=== PATIENT | male | born 1960 | race Caucasian/White ===

== ENCOUNTER → 2017-11-30 06:08 | Outpatient (CLI) | payer BC, SELFPAY ==
[2017-11-30 07:26] LABS: Absolute Lymphocyte Count 1.28 X10^3/ul (0.83-4.51); Basophil# 0.03 X10^3/uL; Basophil% 0.7 % (0-1); Eosinophil# 0.25 X10^3/uL; Eosinophils% 6.1 % (0-5); Hematocrit 40.6 % (40-54); Hemoglobin 14.6 g/dl (13.0-16.5); Lymphocyte # 1.28 X10^3/ul (4.0); Lymphocyte % 31.2 % (19-41); Mean Corpuscular Hgb 31.3 pg (27.0-32.0); Mean Corpuscular Volume 87.1 fL (80-94); Mean Platelet Vol. 8.5 fl (6.2-12.0); Monocyte% 12.2 % (0-10); Neutrophil # 2.02 X10^3/uL (2.7-7.7); Neutrophil % 49.3 % (47-70); Platelet Count 260 K/mm3 (150-450); RBC Distribution Width CV 12.9 % (11.6-14.6); RBC Distribution Width SD 39.9 fl (35.1-43.9); Red Blood Count 4.66 M/mm3 (4.6-6.2); White Blood Count 4.1 K/mm3 (4.4-11.0)
[2017-11-30 07:30] LABS: POSITIVE COUNT NO; POSITIVE DIFFERENTIAL NO; POSITIVE MORPHOLOGY NO
[2017-11-30 07:43] LABS: ALB/GLOB Ratio 1.2 RATIO (0.9-2.4); AST(SGOT) 25 U/L (15-37); Alanine Aminotransfer ALT/SGPT 31 U/L (16-61); Alkaline Phosphatase 49 U/L (45-117); Anion Gap 6 (5-15); BUN 11 mg/dL (7-18); BUN/Creat Ratio 15.3 RATIO (10-20); Calcium,Total 8.2 mg/dL (8.5-10.1); Chloride 108 mmol/L (98-107); Cholesterol 165 mg/dL (200); Creatinine, Serum 0.72 mg/dL (0.70-1.30); EST Glomerular Filtration Rate 120 mL/min (>60); Est Glom Filt Rate - Afr Amer 146 mL/min (>60); Globulin 3.3 g/dL (2.2-4.2); Glucose 106 mg/dL (74-106); High Density Lipoprotein 43 mg/dL; Protein, Total 7.3 g/dL (6.4-8.2); Sodium Level 141 mmol/L (136-145); Triglycerides 97 mg/dL; Very Low Density Lipoprotein 19 mg/dL (5-40)
[2017-11-30 08:58] LABS: Hemoglobin A1c 5.4 % (4.2-6.3)
[2017-12-07 07:07] LABS: Dilute Prothrombin Time (dPT) 38.3 sec (0.0-55.0); PTT-LA 36.3 sec (0.0-51.9); dPT Confirm Ratio 0.95 Ratio (0.00-1.40)
[2017-12-07 13:56] LABS: Interpretation Comment: (.)
== END ==
PROVIDERS: Family Provider Family Medicine; PCP Family Medicine; Visit Provider Family Medicine
DX: H34.9 Unspecified retinal vascular occlusion (principal); E88.81 Metabolic syndrome and other insulin resistance
CPT/HCPCS: 36415; 80053; 80061; 81291; 83036; 85025

== ENCOUNTER → 2017-12-26 06:02 | Outpatient (CLI) | payer BC, SELFPAY ==
--- OUTSIDE RECORDS SUMMARY | 2017-12-26 06:05 | XMS RPT_ITS ---
:1960 Author Organization OHIP Care Team Providers Name Role Phone PEMA MARTINEZ Referring Unavailable PEMA MARTINEZ Referring Unavailable PEMA MARTINEZ Referring Unavailable PEMA MARTINEZ Attending Unavailable PEMA MARTINEZ Admitting Unavailable PEMA MARTINEZ Attending Unavailable PEMA MARTINEZ Attending Unavailable ANUM BELL Attending Unavailable Conner, Car Primary Care Unavailable Gloria Kofernandoian Admitting Unavailable Debbie Benedict Attending Unavailable Genaro Castroian Attending Unavailable Darron Chen Attending Unavailable Prieto, Car Referring Unavailable Prieto, Car Primary Care Unavailable Eugenio Lomeli Attending Unavailable Paulino Rhodes Attending Unavailable Ashelflydia, Ghasem Referring Unavailable Paulino Rhodes Attending Unavailable Ashelfah, Ghasem Referring Unavailable Prieto, Car Attending Unavailable Prieto, Car Primary Care Unavailable Prieto, Car Referring Unavailable PROBLEMS PROBLEMS DATE TYPE CONDITION / CODE ATTENDING STATUS SOURCE 09/06/2017 Unknown K21.9 - [place], Active [place] Gastro-esophageal [facility] reflux disease [facility] without esophagitis Repository / K21.9(ICD-10) 09/26/2017 Unknown R55 - Syncope and Paulino Rhodes Active [place] collapse / Community R55(ICD-10) Hospital Repository 02/22/2017 Active Syncope and ANUM BELL Active [facility] collapse / [facility] [place] R55(ICD-10) Repository 01/16/2017 Active Encounter for other NA Active [facility] preprocedural [facility] [place] examination / Repository Z01.818(ICD-10) 01/02/2017 Active Neoplasm of NA Active [facility] unspecified [facility] [place] behavior of Repository digestive system / D49.0(ICD-10) PROCEDURES PROCEDURES No Procedure Records FoundRESULTS RESULTS CBC W/DIFF, AUTOMATED Collected: 11/30/2017 Status: F Source: [place] 6:15 AM [facility] REPOSITORY TYPE CODE TESTS RESULT OUT OF RANGE REFERENCE UNITS LAB L100.1000 Low 4.4-11.0 K/mm3 WBC 4.1 LAB L100.1200 Normal 4.6-6.2 M/mm3 RBC 4.66 LAB L100.1300 Normal 13.0-16.5 g/dl HGB 14.6 LAB L100.1400 Normal 40-54 % HCT 40.6 LAB L100.1500 Normal 80-94 fL MCV 87.1 LAB L100.1600 Normal 27.0-32.0 pg MCH 31.3 LAB L100.1700 Normal 32-36 g/gl MCHC 36.0 LAB L100.1810 Normal 11.6-14.6 % RDW 12.9 CV LAB L100.1820 Normal 35.1-43.9 fl RDW 39.9 SD LAB L100.1900 Normal 150-450 K/mm3 PLT 260 LAB L100.2000 Normal 6.2-12.0 fl MPV 8.5 LAB L100.2100 Normal 47-70 % NEUT% 49.3 LAB L100.2200 Normal 19-41 % LY% 31.2 LAB L100.2300 High 0-10 % MONO% 12.2 LAB L100.2400 High 0-5 % EO% 6.1 LAB L100.2500 Normal 0-1 % BASO% 0.7 LAB L100.2550 Normal 0.0-0.9 % IM 0.500 GRAN % Result Comment: IG% - Immature Granulocytes (promyelocytes, myelocytes andmetamyelocytes) > 1% indicates that a LEFT SHIFT is Present. LAB L100.2620 Normal 2.0-7.7 X10 3/uL Absolute Neut 2.0 LAB L100.2720 Normal 0.83-4.51 X10 3/ul Absolute Lymph 1.28 Performed By: #### L100.0100 ####[facility] [address] [place], [place], [address] COMPREHENSIVE METABOLIC Collected: 11/30/2017 Status: F Source: [place] [facility] 6:[address] [facility] REPOSITORY Order Comment: Comments: FIBRINOGEN ACTIVITY [id number] PLASMA/RT 24 HRS TYPE CODE TESTS RESULT OUT OF RANGE REFERENCE UNITS LAB L501.0100 Normal 74-106 mg/dL GLU 106 Result Comment: Fasting Glucose result from 100 to 125 mg/dLsuggests IMPAIRED HOMEOSTASIS per A.D.A. criteria.Please note revised GLUCOSE reference range devscscxq67/02/2018. LAB L501.1000 Normal 7-18 mg/dL BUN 11 LAB L501.1100 Normal 0.70-1.30 mg/dL CREAT,SERUM 0.72 Result Comment: The validity of the calculated GFR AND GFRAA in patients over70 years has not been determined. Clinical correlation isessential. LAB L501.1110 Normal >60 mL/min EST GFR 120 Result Comment: Non- GFR Calc LAB L501.1115 Normal >60 mL/min EST GFR - 146 AA Result Comment: GFR Calc LAB L501.1300 Normal 10-20 RATIO BUN/CRE 15.3 LAB L501.1500 Normal 6.4-8.2 g/dL T PROT 7.3 LAB L501.1800 Normal 3.2-5.0 g/dL ALB 4.0 LAB L501.1950 Normal 2.2-4.2 g/dL GLOB 3.3 LAB L501.2000 Normal 0.9-2.4 RATIO A/G 1.2 LAB L501.2200 Low 8.5-10.1 mg/dL CA 8.2 LAB L501.4100 Normal 15-37 U/L AST 25 Result Comment: Slight Hemolysis, Result may be falsely increased. LAB L501.4305 Normal 45-117 U/L ALK P 49 LAB L501.4405 Normal 16-61 U/L ALT 31 Result Comment: Please note revised ALT reference range uedrzhjbo88/28/2018. LAB L501.4600 Normal 0.20-1.00 mg/dL T BILI 0.70 LAB L501.5300 Normal 136-145 mmol/L NA 141 LAB L501.5600 Normal 3.5-5.1 mmol/L K 4.0 Result Comment: Slight Hemolysis, Result may be falsely increased. LAB L501.5900 High 98-107 mmol/L CL 108 LAB L501.6100 Normal 21.0-32.0 mmol/L CO2 27.0 LAB L501.6200 Normal 5-15 6 GAP Performed By: #### L500.4050, L500.4100 ####[facility] [address] [place], [place], [id number] LIPID PROFILE Collected: 11/30/2017 Status: F Source: [place] 6:[address] [facility] REPOSITORY Order Comment: Comments: FIBRINOGEN ACTIVITY [id number] PLASMA/RT 24 HRS TYPE CODE TESTS RESULT OUT OF RANGE REFERENCE UNITS LAB L501.4900 Normal 200 mg/dL CHOL 165 Result Comment: <200 mg/dL Desirable 200-240 mg/dL Borderline >240 mg/dL High Risk LAB L501.5000 Normal mg/dL TRIG 97 Result Comment: The drugs N-Acetylcysteine and Metamizole may falselydepress this assay.Serum Triglycerides Reference Interval Normal <150 mg/dL Borderline high 150 - 199 mg/ dL High 200 - 499 mg/dL Very High > or = 500 mg/dL LAB L501.6400 Normal mg/dL HDL 43 Result Comment: The drugs N-Acetylcysteine and Metamizole may falselydepress this assay. Reference Range HDL <40 mg/dL Low HDL Cholesterol HDL >or= 60 mg/dL High HDL Cholesterol LAB L501.6500 Normal 0-130 mg/dL LDL 103 LAB L501.6600 Normal 5-40 mg/dL VLDL 19 Performed By: #### L500.4050, L500.4100 ####[facility] [address] [place], [address] HEMOGLOBIN A1C Collected: 11/30/2017 Status: F Source: [place] 6:[address] [facility] REPOSITORY TYPE CODE TESTS RESULT OUT OF RANGE REFERENCE UNITS LAB L501.9985 Normal 4.2-6.3 % HGB 5.4 A1C Performed By: #### L501.9985 ####[facility] [address] [place], [address] MISCELLANEOUS LAB Collected: 11/30/2017 Status: F Source: [place] PROCEDURE 3 6:[address] [facility] REPOSITORY Order Comment: Comments: FIBRINOGEN ACTIVITY [id number] PLASMA/RT 24 HRSList Test(s) Ordered by Physician: FACTOR V [id number] PLASMA/FZ TYPE CODE TESTS RESULT OUT OF RANGE REFERENCE UNITS LAB L801.1545 Normal [facility] LAB TEST 3 Result Comment: TEST RESULT UNIT REF INTERVALFactor V Activity 100 % 70 - 150 Molecular testing for the presence of factor V Leiden is recommended when evaluating the patient for thromboticrisk. TESTING PERFORMED AT [facility]. ORIGINAL REPORT ON FILE IN LAB CONTAINS ADDITIONAL TEST SITE INFORMATION. Performed By: #### L801.1545 ####[facility] [address] [place], [address] LUPUS ANTICOAGULANT COMP Collected: 11/30/2017 Status: F Source: [place] 6:[address] [facility] REPOSITORY TYPE CODE TESTS RESULT OUT OF REFERENCE UNITS RANGE LAB L4500.0125 Normal 0.0-55.0 sec DILUTE PT (dPT) 38.3 LAB L4500.0150 Normal 0.00-1.40 Ratio dPT Conf. Ratio 0.95 LAB L4500.0200 Normal 0.0-23.0 sec THROMBIN TIME 22.0 LAB L4500.0600 Normal 0.0-51.9 sec PTT-LA 36.3 LAB L4500.1000 Normal 0.0-47.0 sec DRVVT 36.0 LAB L4500.1300 Normal . Interpretation Comment: Result Comment: No lupus anticoagulant was detected. Performed By: #### L4500.0100, L4600.0155 ####[facility] (refer to report for specific site)refer to report for address and phone number MTHFR DNA VARIANT Collected: 11/30/2017 Status: F Source: [place] 6:[address] [facility] REPOSITORY TYPE CODE TESTS RESULT OUT OF RANGE REFERENCE UNITS LAB L4600.0205 Normal . 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 The MTHFR A7902S variant was not identified.This combination of results is not associated with anincreased risk of hyperhomocysteinemia, venous thrombosis,coronary artery disease, or recurrent loss.However, hyperhomocysteinemia may also occur due tomutations in enzymes other than MTHFR that are involved inhomocysteine metabolism, or arise due to acquiredfactors. In evaluation of vascular and obstetric risk,consider measuring fasting homocysteine. Other risk factorsmay be detected through systematic clinical laboratoryanalysis. LAB L4600.0250 Normal COMMENT Result Comment: Methylenetetrahydrofolate reductase (MTHFR) is a gordon enzyme in thefolate pathway and is responsible for the metabolism of homocysteine.There are two common variants in the MTHFR gene, c.655c>T(p.Arg458Yexs), referred to as C677T, and c.1286A>C (p.Dul419Geh),referred to as L9451G. Individuals homozygous for C677T (two copiesof the variant), have decreased activity of the MTHFR enzyme and apredisposition to hyperhomocysteinemia, particularly when deficient infolate. Hyperhomocysteinemia is a risk factor for venous thrombosisand coronary artery disease and is associated with an increased riskof open neural tube defects. The C677T variant does notindependently increase risk of these conditions in the absence ofhyperhomocysteinemia. The A9860F variant is not associated withelevated homocysteine levels unless a C677T variant is also present;however, the clinical significance of heterozygosity for both N217Qyoa A1762K is controversial. Population data suggest that these twovariants are not present on the same chromosome, but rare exceptionshave been reported of triple variant MTHFR genotypes (ie. homozygousfor one variant and heterozygous for the other). Homozygosity fsfD504D has an estimated frequency of 10% to 15% in Caucasians and 25%in Hispanics.Additional information:Dietary folic acid, B6 and B12 supplementation has been suggested tolower homocysteine levels in some people. Folic acid supplementationhas been shown to reduce the occurrence of neural tube defects.Genetic counselors are available for health care providers to discussresults at [phone].Methodology:DNA analysis of the MTHFR gene was performed by PCRamplification followed by restriction analysis. Thediagnostic sensitivity is >99% for both. Molecular-basedtesting is highly accurate, but as in any laboratory test,rare diagnostic errors may occur. All test results must becombined with clinical information for the most accurateinterpretation.This test was developed and its performance characteristicsdetermined by [employer]. It has not been cleared or approved bythe Food and Drug Administration.References:Basimo LD, Rubio Q. Am J Epidemiol 2000; 151(9):862-877.Maodnna MM, Nya THEODORE. Arch Pathol Lab Med 2007; 131(6):872-884.Frosst P et al. Yesica Adriana 1995; 10(1):111-113.Tito SE et al. Adriana Med 2013; 15(2):153-156.Kenny C et al. Obstet Gynecol 2011; 118(3):730- 740.Kenji B et al. Eur J Epidemiol 2013; 28(8):621-647.Hilary Langford, PhD, Mike Lieberman, PhD, Carolee Monterroso, PhD, Aman Kam MHakanSHakan, PhD, Ankit Schofield, PhD, Charity Bundy, PhD, Anders Beard, PhD, FACMGPerformed at: BN - [facility] [address] [id number] Director: Erik Mancera MD, Phone: [phone] at: TG - [facility] [address] [place], [place] [id number] Director: Damian Khalil MD, Phone: [phone] Performed By: #### L4500.0100, L4600.0155 ####[facility] (refer to report for specific site)refer to report for address and phone number MISCELLANEOUS LAB Collected: 11/30/2017 Status: F Source: [place] PROCEDURE 2 6:[address] [facility] REPOSITORY Order Comment: Comments: FIBRINOGEN ACTIVITY [id number] PLASMA/RT 24 HRSList Test(s) Ordered by Physician: ANTITHROMBIM III [id number] PLASMA/FZ TYPE CODE TESTS RESULT OUT OF RANGE REFERENCE UNITS LAB L801.1543 Normal [facility] LAB TEST 2 Result Comment: TEST RESULT UNITS REF INTERVALAntithrombin Activity 91 % 75 - 135Direct Xa inhibitor anticoagulants such as rivaroxaban,apixaban and edoxaban will lead to spuriously elevatedantithrombin activity levels possibly masking a deficiency. TESTING PERFORMED AT [facility]. ORIGINAL REPORT ON FILE IN LAB CONTAINS ADDITIONAL TEST SITE INFORMATION. Performed By: #### L801.1543 ####[facility] [address] [place], [place], [address] MISCELLANEOUS LAB Collected: 11/30/2017 Status: F Source: [place] PROCEDURE 6:[address] [facility] REPOSITORY Order Comment: Comments: FIBRINOGEN ACTIVITY [id number] PLASMA/RT 24 HRSTest(s) Ordered: ANTITHROMBIM III [id number] PLASMA/FZ TYPE CODE TESTS RESULT OUT OF RANGE REFERENCE UNITS LAB L801.1541 Normal [facility] LAB TEST Result Comment: TEST RESULT LIMITSAntithrombin Activity 91 % 75 - 135Direct Xa inhibitor anticoagulants such as rivaroxaban,apixaban and edoxaban will lead to spuriously elevatedantithrombin activity levels possibly masking a deficiency. TESTING PERFORMED AT [facility]. ORIGINAL REPORT ON FILE IN LAB CONTAINS ADDITIONAL TEST SITE INFORMATION. Performed By: #### L801.1541 ####[facility] [address] [place], [place], [address] SURGERY VISIT REPORT Observed: 09/06/2017 Status: F Source: [place] 4:[address] [facility] REPOSITORY [facility] [address] [place] [address] [place] [address] [phone] VISITDate of Service: 09/06/17MR#: [id number] Acct: [id number]: ANDRE PADRON Rep #: [id number]: 1960 Provider: Eugenio Claros/Sex: 57/M Location: [facility].WSAStatus: SignedIntakeVital Signs09/06/17 Height 6 ft 1 in09/06/17 Weight: 230 lb09/06/17 Body Mass Index (BMI) 30.3IntakeVisit Reasons: egd/cscope consult, hx of hh, on ppi for ulcerInterpreter Required: NoIs patient in pain?: NoAllergiesacetaminophen [From Vicodin] Adverse Reaction (Verified 09/06 15:10)Nauseahydrocodone [From Vicodin] Adverse Reaction (Verified 09/06/17 15:10)NauseaMedicationsProtonix 1 tab PO DAILY 08/20/16 [History Confirmed 09/06/17]Ropinirole HCl [Requip] 0.25 mg PO QHS 08/25/17 [History Confirmed 09/06/17]escitalopram 10 mg tablet 10 mg PO QDAY 09/06/17 [History Confirmed 09/06/17]sucralfate 1 gram tablet 1 g PO ONCE 09/06/17 [History Confirmed 09/06/17]PFSHMedical History Benign parotid tumor (Acute)GERD (gastroesophageal reflux disease) (Acute)History of left knee surgery (Acute)Restless leg syndrome (Acute)Stomach ulcer (Acute)Surgical History H/O esophagogastroduodenoscopy (Acute)History of appendectomy (Acute)History of colonoscopy (Acute)Family History Father DiabetesHeart diseaseHypertensionCAD (coronary artery disease)Social HistorySmoking Status: Light Smoker (<10/day)alcohol intake: current alcohol intake frequency: holidays/special occasions onlysubstance use type: does not useHPIHPIHPI: ANDRE PADRON, is a 57 M who presents to the office today for epigastric pain. He reportsthat he saw his PCP and his PCP ordered Carafate for him but he did not start them untilyesterday. Once he did start taking them yesterday he feels much better. He currently has nopain. He reports he has been under a lot of stress for the last year since he lost his son.He says that he did have a an upper and lower endoscopy a few years ago which was normal. Hereports the pain as being in his epigastric region and radiating into his chest.ROSGeneralGeneral: Yes weight change and fatigueCardioCardiovascular: No murmur, pacemaker or heart diseasePsychPsychiatric: Yes depression and anxietyRespRespiratory: No shortness of breath, No sleep apnea, No cough, No COPD, No asthma, Noemphysema, No wheezingGastroGastrointestinal: Yes abdominal pain, Yes nausea or vomiting, Yes diarrhea, Yes constipation,No blood in stool, Yes acid reflux, Yes hemorrhoids, Yes ulcers, No gallbladder problem, [place],tarry stoolsExamConstGeneral: cooperative, healthy appearingRespEffort AND Inspection: normal respiratory effortAuscultation: clear to auscultation bilaterallyCardioRate: regular rateRhythm: regular rhythmHeart Sounds: no murmursGIInspection: normal to inspection, non-distendedPalpation: soft, nontenderAssessment AND PlanProblems1. GERD (gastroesophageal reflux disease) K21.9Plan1. The patient appears to be having GERD but reports relief of his symptoms when takingCarafate. I offered to do an EGD at this time or wait and see if he continues to respond tothe Carafate. The patient would like to see me in 1 month and see if the Carafate works. Itold him that if the Carafate is working to call me in 1 week and I will refill it for a totalof 1 month treatment. I advised him to continue his PPI. If his GERD worsens or does notresolve after a month's time I will perform an EGD.Eugenio Lomeli, MDPager: [facility] [address] , [address] [address]Gjktxc: Fax: [phone]/07/16 1600 <Electronically signed by Eugenio Lomeli MD> Date Eugenio Lomeli [facility]ign Signature: Date (if applicable)CC: Car Prieto MD 12 LEAD ELECTROCARDIOGRAM Observed: 08/30/2017 Status: F Source: [place] 2:56 PM [facility] REPOSITORY [facility] [address] [place], [place] [address] Lead EKG110/26/16 0105MR#: [id number] Acct: [id number]: ANDRE PADRON Rep #: [id number]: 1959 57 From: Benjamin Castro MDAttending Dr: Debbie Benedict Status: DIS INOOrdering Dr: Abraham Damian MD Date: 08/25/17Location: PCU Sex: M CAdmitted: 08/25/17Test Reason :Blood Pressure : / mmHGVent. Rate : 052 BPM Atrial Rate : 052 BPMP- R Int : 156 ms QRS Dur : 102 msQT Int : 482 ms P-R-T Axes : 015 067 063 degreesQTc Int : 448 msSinus bradycardiaOtherwise normal ECGConfirmed by BENJAMIN CASTRO MD ([id number]), supervising editor trailer BETO PADILLA ([id number]) on 08/30/2017 2:56:24 PMReferred By: EKCIA Confirmed By:BENJAMIN CASTRO MD08/30/17 1456Date Benjamin Casrto MDCC: Car Prieto MD Signed CAROTID DUPLEX Observed: 08/26/2017 Status: F Source: [place] ULTRASOUND 1:[address] [facility] REPOSITORY [facility] [address] [place], [place] [address]Lddjiwq Duplex Nqjdtiugwy51/15/17 0856MR#: [id number] Acct: [id number]: ANDRE PADRON Rep #: [id number]: 1960 57 From: Deven Lyle MDAttending Dr: Debbie Benedict Status: DIS INOOrdering Dr: Jaqueline Castro MD Date: 08/25/17Location: PCU Sex: M CAdmitted: 08/25/17Reason For Study: syncopeRt. Velocities/BP Lt. Velocities/BPProx CCA 156.0/11.8 cm /sec. Prox CCA 147.0/28.3 cm/sec.Mid CCA 117.0/26.7 cm/sec. Mid CCA 145.0/30.6 cm/sec.Dist CCA 107.0/28.3 cm/sec. Dist CCA 134.0/29.1 cm/sec.Prox ICA 98.2/20.4 cm/sec. Prox ICA 124.0/25.1 cm/sec.Mid ICA 94.4/24.6 cm/sec. Mid ICA 141.0/26.7 cm/sec.Dist ICA 80.3/28.1 cm/sec. Dist ICA 91.5/25.2 cm/sec.Rt. ICA/CCA = 98.2/117.0=0.84. Lt. ICA/ CCA = 141.0/145.0=0.97.Prox ECA 135.0/18.9 cm/sec. Prox ECA 125.0/14.9 cm/ sec.Rt. Vert. 42.6/11.4 cm/sec. Lt. Vert. 58.1/19.3 cm/sec.Right ExtracranialThere is intimal thickening but no significant atherosclerotic plaque noted in the right commoncarotid artery. There is no significant atherosclerotic plaque noted in the right internalcarotidartery. There is no significant atherosclerotic plaque noted in the right external carotidartery.Antegrade flow is noted in the right vertebral artery.Left ExtracranialThere is intimal thickening but no significant atherosclerotic plaque noted in the left commoncarotid artery. There is intimal thickening but no significant atherosclerotic plaque noted intheleft internal carotid artery. There is no significant atherosclerotic plaque noted in the leftexternal carotid artery. Antegrade flow is noted in the left vertebral artery.ProcedureCarotid Duplex 65763. The exam was diagnostic. Exam performed portable in patient room.Interpretation SummaryMild (<50%) stenosis right extracranial internal carotid. Moderate ( 50-69%) stenosis leftextracranial internal carotid. Flow within the vertebral arteries is antegrade bilaterally. Order ing Physician: Jaqueline CastroReferring Physician: Car PrietoPerformed By: Leslie Coronado RDCS, RVT 08/26/17 1337Date _ Deven Lyle MDCC: Car Prieto MD; Jaqueline Castro MD Date Dictated: 08/25/17 0856Date Transcribed: 08/26/17 1337Transcriptionist:Signed DISCHARGE SUMMARY Observed: 08/25/2017 Status: F Source: [place] 3:[address] [facility] REPOSITORY [facility]ITALMedical Records [address] [place] [place], [place] [address]Nuihqxdps Sptzocm72/15/17 1438MR#: [id number] Acct: [id number]: ANDRE PADRON Rep #: [id number]: 1960 57 From: Darron Chen PAPCP: Car Prieto MD Status: DIS IESHA YLocation: U [id number] by Debbie Benedict on 08/25/17 at 1502Code VisitPlease ignore the visit code at the bottom of the discharge summary.OBSV E AND M: 01620 Observ/hosp same date L208/25/17 1502 <Electronically signed by Debbie Benedict MD>Date Debbie Benedict [facility]: RAMAN Chen; Car Prieto MD; Debbie Benedict *Signed<Darron Chen - Last Filed: 08/25/17 14:38>Discharge Date and DiagnosisDate of Admission: 08/25/17Date of Discharge: 08/25/17- Primary Discharge DiagnosisSyncope-vasovagalHx GERD, Depression, RLSHospital Course and TreatmentImaging Results:Echocardiogram-EF 65%, no regional wall abnormalities noted, LV systolic function normalORDER #: [id number] RAD/ Chest 1 View (Portable)IMPRESSION:Normal x-ray examination of the chest.Operations: NoneProcedures: 2-D Echocardiogram, - - Carotid ultrasoundSummary of Care Provided:General: Resting comfortably NADPsych: A/Ox3 normal affectHEENT: PEARRLA AT NCNeck: Supple NT-no bruits were appreciated today.CV: RRR no m/t/r/g/hResp: CTAAbd: NABSX4 Soft NT no guarding or rigidityExt: DP2+= no edemaSkin: W/D normal turgorLymph/Heme: No active bleeding or adenopathyNeuro: CN2-12 intactHospital course:The patient is a 57 year old M who presented to the ER after experiencing a syncopal episode athome. This was the 2nd occurrence, another had occurred about 2 weeks prior to this event. 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 This time it occurred after he stood up out of bed, he became verynauseous and walked into another room of his house, he felt like he needs them fracture andattempted to walk outside at which point he collapsed and lost consciousness. He was broughtto the emergency room for evaluation. Chest x-ray was negative, EKG showed sinus bradycardiaat 52. He had no further symptoms after admission. Troponin was negative 3. TSH was normal.No events on telemetry. Orthostatic vitals were checked which were negative. He underwent anechocardiogram which was normal as noted above. He also had a carotid ultrasound the resultsof which are pending. It is felt that his presentation was consistent with vasovagal syncope,no other changes were made at this time. He was discharged home in stable condition. He willneed to follow-up with his PCP in 1-2 weeks.This patient was seen by Darron Chen PA-C under the supervision of Doctor Benedict. []Discharge Diet: No RestrictionsDischarge Activity: Return to Normal ActivityHome Medications:Medications to take at DischargeProtonix 1 tab PO DAILY 08/20/16Depression Med 1 tab PO DAILY 08/25/17Ropinirole HCl [Requip] 0.25 mg PO QHS 08/25/17Primary Care Physician:Car Prieto MD [Primary Care Provider] - Please follow up with your Primary Care Physician in: 1-2 weeksDisposition: HomeMinutes spent on discharge:: 35Patient Condition:: StableMeaningful Use InfoMeaningful Use Diagnoses (Choose all that apply): None applicableCode VisitOBSV E AND M: 36488 Observation care discharge<Debbie Benedict - Last Filed: 08/25/17 15:00>Hospital Course and TreatmentProcedures: -Summary of Care Provided:Hospitalist note:Discharge summary above as well as physical examination and I agree with above discharge andtreatment plan. Patient was admitted for syncope, seemed to be due to vasovagal syncope.Workup including routine blood work, chest x-ray, EKG and 2D echocardiogram were unremarkable.He had bilateral carotid Doppler ultrasound which was pending at the time of discharge. Therewas no symptoms consistent with stroke or TIA. Patient's vital signs remained stablethroughout admission. Telemetry revealed no evidence of cardiac arrhythmias or acute changes.Routine blood work was remarkable for mild hypokalemia which was replaced and corrected.Troponin was negative 3. TSH was normal. LFT was normal. Patient discharged home in astable medical condition, discharged on the same medication that he has been taking without anychanges, recommended follow-up with PCP in 1-2 weeks..Minutes spent on discharge:: 24Code VisitOBSV E AND M: 72746 Observation care myiiccdqn72/15/17 1446 <Electronically signed by Darron CAMARGO>Date Darron CAMARGO 1501<Electronically signed by Debbei Benedict MD>Cosigner Signature (if applicable): Date Debbie Benedict MDCC: RAMAN Chen; Car Prieto MD; Debbie Benedict Signed DISCHARGE INSTRUCTION Observed: 08/25/2017 Status: F Source: [place] 11:[address] [facility] REPOSITORY [facility] [address] [place], [place] [address]Ljtuujctlykp for Home/Discharge Whwstsvmfcsj40/15/17 1156MR #: [id number] Acct: [id number]: ANDRE PADRON Rep #: [id number]: 1960 57 From: Darron Chen PAPCP: Car Prieto MD Status: ADM INOYou will use the following diet at home:: No restrictionsYour food should be the consistency of: RegularYour liquids should be the consistency of: Regular/ThinDischarge Activity: Return to Normal ActivityAllergies/Adverse Reactions:Allergiesacetaminophen [From Vicodin] Adverse Reaction (Verified 08/25/17 00:47)Nauseahydrocodone [From Vicodin] Adverse Reaction (Verified 08/25/17 00:47)NauseaMedications to take at DischargeProtonix 1 tab PO DAILY 08/20/16Depression Med 1 tab PO DAILY 08/25/17Ropinirole HCl [Requip] 0.25 mg PO QHS 08/25/17Primary Care Physician:Car Prieto MD [Primary Care Provider] - Please follow up with your Primary Care Physician in: 1-2 weeksProposed Discharge Date : 08/25/1712/15/17 1157 <Electronically signed by Darron CAMARGO>Date Darron Chen PACC: Car Prieto MD ECHOCARDIOGRAM COMPLETE Observed: 08/25/2017 Status: F Source: [place] 11:[address] [facility] REPOSITORY [facility]OSPITALCardiovascular Hdvzswkd[address] [address]Fmcc Jcmbfefe68/15/17 0816MR#: [id number] Acct: [id number]: ANDRE PADRON Hiren Rep #: [id number]: 1960 57 From: Paulino Rhodes MDAttending Dr: Debbie Benedict Status: ADM INOOrdering Dr: Jaqueline Castro MD Date: 08/25/17Location : PCU Sex: M CAdmitted: 08/25/17Reason For Study: PalpitationsProcedureThis was a 2D Doppler, Color Flow transthoracic echocardiogram. The exam was of adequatetechnicalquality. Exam performed portable in patient room.Left VentricleNormal LV size. Left ventricular systolic function is normal. The estimated ejection fractionis 65%. No regional wall motion abnormalities noted.Right VentricleNormal RV size. Normal systolic function.AtriaThe left atrium is mildly enlarged. Normal right atrium. No doppler evidence for ASD.Mitral ValveThere is no mitral annular calcification. Normal mitral valve. Trivial mitral valveinsufficiency.Tricuspid ValveNormal tricuspid valve. Trivial tricuspid valve insufficiency.Aortic ValveTrisinus/trileaflet aortic valve. Normal aortic valve.Pulmonic ValveThe pulmonic valve is not well visualized. Trivial pulmonic valve insufficiency.Great VesselsNormal sized aortic root.Pericardium/PleuralNo pericardial effusion.MMode/2D Measurements AND CalculationsLVIDd: 3.8 cm IVSd: 1.2 cm Ao root diam: 3.2 cmLVIDs: 2.3 cm LVPWd: 1.1 cm LA dimension: 4.5 cmRVDd: 4.0 cm FS: 39.8 % __LAV(MOD-bp): 61.1 ml EDV(MOD-sp4): 88.3 ml SV(MOD-sp4): 50.8 mlLAV(MOD-bp) Indexed: 26.8 ml/m2 ESV(MOD-sp4): 37.4 mlLAV(MOD-sp2): 65.6 ml EF(MOD-sp4): 57.6 %LAV(MOD-sp4): 48.9 ml ___LA A4 area: 19.2 cm2 RA A4 area: 12.3 bj1W[place] Measurements AND CalculationsMV E max schuyler: 80.8 cm/sec Lat Peak E' Schuyler: 10.4 cm/sec Med Peak E' Schuyler: 7.6 cm/secMV A max schuyler: 65.8 cm/sec E/E' lat: 7.8 E/E' med: 10.6MV E/ A: 1.2 ____Ao V2 max: 136.3 cm/sec LV V1 max: 124.6 cm/sec PA V2 max: 111.7 cm/ secAo max P.4 mmHg LV V1 max P.2 mmHgAo V2 mean: 97.1 cm/secAo mean P.0 mmHgAo V2 VTI: 29.0 cm TR max schuyler: 217.0 cm/secTR max P.8 mmHgInterpretation SummaryLeft ventricular systolic function is normal.The estimated ejection fraction is 65 %.The left atrium is mildly enlarged.Trivial mitral valve insufficiency.Trivial tricuspid valve insufficiency.Trivial pulmonic valve insufficiency. Ordering Physician: Jaqueline CastroReferring Physician: Car Prieto, MDPerformed By: Domtiila Oglesby RDCS, RVT 08/25/17 1108Date Paulino Rhodes MDCC: Car Prieto MD; Jaqueline Castro MD Date Dictated: 08/25/17 0816Date Transcribed: 08/25/17 1108Transcriptionist:Signed TROPONIN-I Collected: 08/25/2017 Status: F Source: [place] 10:[address] [facility] REPOSITORY Order Comment: 'TROP' Serial specimen #1, #2, #3, or #4: 3 TYPE CODE TESTS RESULT OUT OF RANGE REFERENCE UNITS LAB L501.4010 Normal <0.06 ng/mL < TROPONIN-I 0.02 Result Comment: TROPONIN-I EXPECTED VALUES <0.05 NEGATIVE 0.06 - 0.59 AT RISK OF [place] > OR = 0.60 SUGGEST TX Performed By: #### L501.4010 ####[facility] [address] [place], [address] THYROID STIM HORMONE Collected: 08/25/2017 Status: F Source: [place] (TSH) 10:[address] [facility] REPOSITORY Order Comment: Comments: FROM BLOOD IN LAB. TYPE CODE TESTS RESULT OUT OF RANGE REFERENCE UNITS LAB L501.9520 Normal 0.358-3.74 uIU/mL TSH 0.73 Performed By: #### L501.9520 ####[facility] [address] [place], [place], [address] BASIC METABOLIC Collected: 08/25/2017 Status: F Source: [place] PROFILE (BMP) 6:[address] [facility] REPOSITORY TYPE CODE TESTS RESULT OUT OF RANGE REFERENCE UNITS LAB L501.0100 High 70-110 mg/dL GLU 127 Result Comment: Fasting Glucose result greater than or equal to 126 mg/ dLsuggests DIABETES MELLITUS per A.D.A. criteria. LAB L501.1000 Normal 7-18 mg/dL BUN 15 LAB L501.1100 Normal 0.70-1.30 mg/dL CREAT,SERUM 0.70 Result Comment: The validity of the calculated GFR AND GFRAA in patients over70 years has not been determined. Clinical correlation isessential. LAB L501.1110 Normal >60 mL/min EST GFR 125 Result Comment: Non- GFR Calc LAB L501.1115 Normal >60 mL/min EST GFR - 151 AA Result Comment: GFR Calc LAB L501.1255 Normal ml/min Estimated 133.17 CRCL LAB L501.1300 High 10-20 RATIO BUN/CRE 21.6 LAB L501.2200 Low 8.5-10 mg/dL CA 8.1 .1 LAB L501.5300 Normal 136-14 mmol/L NA 142 5 LAB L501.5600 Normal 3.5-5. mmol/L K 4.1 1 LAB L501.5900 High 98-107 mmol/L CL 109 LAB L501.6100 Normal 21.0-3 mmol/L CO2 26.0 2.0 LAB L501.6200 Normal 5-15 GAP 7 Performed By: #### L500.2500 ####[facility] [address] [place], [address] TROPONIN-I Collected: 08/25/2017 Status: F Source: [place] 6:[address] [facility] REPOSITORY Order Comment: 'TROP' Serial specimen #1, #2, #3, or #4: 2 TYPE CODE TESTS RESULT OUT OF RANGE REFERENCE UNITS LAB L501.4010 Normal <0.06 ng/mL < TROPONIN-I 0.02 Result Comment: TROPONIN-I EXPECTED VALUES <0.05 NEGATIVE 0.06 - 0.59 AT RISK OF TX > OR = 0.60 SUGGEST TX Performed By: #### L501.4010 ####[facility] [address] [place], [address] HISTORY AND PHYSICAL Observed: 08/25/2017 Status: F Source: [place] EXAM 3:[address] [facility] REPOSITORY [facility] [address] [facility] [place], [place] [address]Vikfzyp and Pgljneuo38/15/17 0220MR#: [id number] Acct: [id number]: ANDRE PADRON Rep #: [id number]: 1960 57 From: Jaqueline Castro MDPCP: Car Prieto MD Status: ADM IESHA YLocation: [facility] RSO232-5Upskhnk of Present IllnessDate of Admission: 08/25/17Chief Complaint: I passed outThe patient is a 57 year old M who presented to the emergency room via EMS after a syncopalepisode. He reports he ate at a [email or web address]. and after about 2 hours camesignificantly nauseated and dizzy, to stand up and then passed out. His reports that hebecame diaphoretic she called 911. He also reports a similar incident about 2 weeks ago.Patient denies cardiac history, he had a stress test few years ago which was normal. Thepatient also reports acid reflux symptoms he takes Protonix daily but the symptoms has worsenedlately, we are placing him in the PCU for observation.Past Medical HistoryAllergiesacetaminophen [From Vicodin] Adverse Reaction (Verified 00:47)Nauseahydrocodone [From Vicodin] Adverse Reaction (Verified 08/25/17 00:47)NauseaHome Medications:Ambulatory OrdersMedication Instructions RecordedProtonix 1 tab PO DAILY 08/20/16Depression Med 1 tab PO DAILY 08/25/17Ropinirole HCl [Requip] 0.25 mg PO QHS 08/25/17Smoking Status: Light Smoker (<10/day)Review of SystemsComment: All Systems were reviewed with pertinent positives mentioned in the HPI above.VTE Information - Inpt OnlyVTE Present on Admission: NoVTE Mechan Device Prophylaxis: SCD'sVTE Pharm Prophylaxis ordered?: Yes- Physical ExamGeneral: Alert, Oriented p9UDDGY: AtraumaticNeck: Supple, No JVDLungs: Clear to auscultation, No rhonchi, No wheezeCardiovascular: Normal S1 , Normal B7Prrvjjf: Bowel Sounds Present, Soft, Non TenderVital SignsTemp Pulse Resp BP Pulse Ox97.6 F L 60 20 H 141/84 H 00:44 08/25/17 01:18 08/25/17 00:44 08/25/17 01:18 08/25/17 00:44Oxygen Delivery Method Room AirWeight: 104.326 kgBody Mass Index (BMI) 30.3Laboratory Tests Past 24 HrsWBC 6.0RBC 4.28 LHgb 13.4Hct 37.3 LMCV 87.1MCH 31.3Assessment/ Plan1. status post syncope; most likely vasovagal obtain echocardiogram and carotid Dopplerultrasound and go from there.2. GERD; we will change his Protonix to 40 mg twice daily3. Depression/ restless leg syndrome; continue home medications as they are.Code VisitOBSV E AND M: 54811 Initial observation care L208/25/17 0350 <Electronically signed by Jaqueline Castro MD>Date Jaqueline Castro MDCosigner Signature: Date (if applicable)CC: Car Prieto MD; Jaqueline Castro MD Signed EMERGENCY DEPARTMENT Observed: 08/25/2017 Status: F Source: [place] SUMMARY 3:[address] [facility] REPOSITORY [facility] [address] [place] [address]Owirofdxk Department Hrvddpa65/15/17 0209MR#: [id number] Acct: [id number]: ANDRE PADRON Rep #: [id number]: 1960 57 From: Abraham Damian MDPCP: Car Prieto MD Status: ADM IESHA- ER Visit SummaryDate of Service: 08/25/17Chief Complaint: SyncopeHistory of Present Illness: The patient is a 57 M with no significant medical history presentsto the emergency department after a syncopal event. Patient states that he ate at a [employer]. He states that he had no complaints. He got home about 2 hours later. Hestarted to feel very nauseated and lightheaded. He states that he stood up quickly and thenhad a syncopal episode. He states this happened about 2 weeks ago also. He has no history ofcoronary vascular disease. There is no family history of sudden cardiac . He denieshaving a recent stress test or heart catheterization. He denies having any chest pain. Thepatient has no history of pulmonary embolus or risk factor.Physical Examination: Vital signs reviewedGeneral: Well-nourished, well-developedHead: Normocephalic, atraumaticEyes: Pupils equal and reactive, extraocular muscles intactNeck, supple, no lymphadenopathyHeart: Regular rate and rhythmRespiratory: No distress, clear bilaterallyAbdomen: Soft, nontender, nondistended, no peritoneal signsBack: NontenderExtremities: Nontender, no edema, no cordsSkin: Normal color no rashNeuro: Alert and oriented, no focal or lateralizing deficitsTest Results: AG demonstrates sinus bradycardia. Screening labs are unremarkable.Emergency Department Course and Treatment: She had syncopal event. This has been recurrent.My suspicion is that this is likely vasovagal in nature, but given the patient's age andpersistence of lightheadedness I did proceed with a metabolic workup. EKG is unremarkableexcept for sinus bradycardia in the 50s. There was no prolonged QT. There is no WPW. Chestx-ray was unremarkable. Labs are unremarkable. The patient continues to have some mildlightheadedness. Given his age, I am going to admit the patient observation for syncope workupwith potential echocardiogram. Family is comfortable with this plan of care.Treatment Plan: []Disposition: Admit to telemetryImpression:. SyncopeThis note was generated with Power OLEDsation software. It may contain incorrect words,spelling, and punctuation that were not noted in review of the chart prior to signingED Disposition- Plan for ED Patient:Chief Complaint: SyncopeReferrals:Car Prieto MD [Primary Care Provider] -What to do if you have ProblemsFor any increased pain, shortness of breath, bleeding, nausea or vomiting, chest pain, or anyunexpected problems, contact your Primary Care Provider. Call [facility] ([phone])or report to the closest Emergency Room.Call 911 if necessary.08/25/17 0300 <Electronically signed by Abraham Damian MD> Date Abraham Damian [facility] Signature (If Indicated): Date ___CC: Car Prieto MD CHEST 1 VIEW Observed: 08/25/2017 Status: F Source: [place] (PORTABLE) 1:[address] [facility] REPOSITORY [facility] [address] [place] [address]Efvew 1 View (Portable)MR#: [id number] Acct: [id number]: ANDRE PADRON Rep #: [id number]: 1959 M 57 From: Erik Kulkarni MDPCP: Car Prieto MD Status: REG ERStudy: Chest 1 View (Portable) Date of Exam: 08/25/17Exam# [id number] Ordering Dr: Abraham Damian MDSTUDY: X-RAY CHESTREASON FOR EXAM: Male, 57 years old. Nausea and syncopeTECHNIQUE: Single frontal view of the chest.COMPARISON: None. FINDINGS:The lungs are clear and expanded. There is no demonstrated pleuralabnormality.Normal size heart. Normal mediastinum and charity. Normal visualizedpulmonary arteries. Normal visualized aortic arch and descending thoracicaorta.Normal visualized thoracic spine. Normal visualized ribs, clavicles, andshoulders.There is no demonstrated abnormality of the visualized soft tissuestructures of the upper abdomen. ORDER #: [id number] RAD/Chest 1 View (Portable)IMPRESSION:Normal x-ray examination of the chest.Electronically Signed:Erik Kulkarni MD at 2:25 ESTTel , Service support , RH: Car Prieto MD; Abraham Damian MD Yield Engineer:Signed CBC W/DIFF, AUTOMATED Collected: 08/25/2017 Status: F Source: [place] 1:[address] [facility] REPOSITORY TYPE CODE TESTS RESULT OUT OF RANGE REFERENCE UNITS LAB L100.1000 Normal 4.4-11.0 K/mm3 WBC 6.0 LAB L100.1200 Low 4.6-6.2 M/mm3 RBC 4.28 LAB L100.1300 Normal 13.0-16.5 g/dl HGB 13.4 LAB L100.1400 Low 40-54 % HCT 37.3 LAB L100.1500 Normal 80-94 fL MCV 87.1 LAB L100.1600 Normal 27.0-32.0 pg MCH 31.3 LAB L100.1700 Normal 32-36 g/gl MCHC 35.9 LAB L100.1810 Normal 11.6-14.6 % RDW 12.6 CV LAB L100.1820 Normal 35.1-43.9 fl RDW 39.1 SD LAB L100.1900 Normal 150-450 K/mm3 PLT 273 LAB L100.2000 Normal 6.2-12.0 fl MPV 8.3 LAB L100.2100 Low 47-70 % NEUT% 46.0 LAB L100.2200 Normal 19-41 % LY% 39.1 LAB L100.2300 High 0-10 % MONO% 10.4 LAB L100.2400 Normal 0-5 % EO% 3.8 LAB L100.2500 Normal 0-1 % BASO% 0.5 LAB L100.2550 Normal 0.0-0.9 % IM 0.200 GRAN % Result Comment: IG% - Immature Granulocytes (promyelocytes, myelocytes andmetamyelocytes) > 1% indicates that a LEFT SHIFT is Present. LAB L100.2620 Normal 2.0-7.7 X10 3/uL Absolute Neut 2.8 LAB L100.2720 Normal 0.83-4.51 X10 3/ul Absolute Lymph 2.36 Performed By: #### L100.0100 ####[facility] [address] [place], [place], [id number] COMPREHENSIVE METABOLIC Collected: 08/25/2017 Status: F Source: [facility] 1:[address] [facility] REPOSITORY Order Comment: 'TROP' Serial specimen #1, #2, #3, or #4: 1 TYPE CODE TESTS RESULT OUT OF RANGE REFERENCE UNITS LAB L501.0100 Normal 70-110 mg/dL GLU 107 LAB L501.1000 Normal 7-18 mg/dL BUN 18 LAB L501.1100 Normal 0.70-1.30 mg/dL 0.93 CREAT,SERUM Result Comment: The validity of the calculated GFR AND GFRAA in patients over70 years has not been determined. Clinical correlation isessential. LAB L501.1110 Normal >60 mL/min EST GFR 89 Result Comment: Non- GFR Calc LAB L501.1115 Normal >60 mL/min EST GFR - 108 AA Result Comment: GFR Calc LAB L501.1255 Normal ml/min Estimated 100.23 CRCL LAB L501.1300 Normal 10-20 RATIO BUN/CRE 19.4 LAB L501.1500 Normal 6.4-8. g/dL T PROT 7.1 2 LAB L501.1800 Normal 3.4-5. g/dL ALB 3.8 0 Result Comment: Please note revised Albumin AND Globulin reference rangeeffective 2017. LAB L501.1950 Normal 2.2-4.2 g/dL GLOB 3.3 LAB L501.2000 Normal 0.9-2.4 RATIO A/G 1.2 LAB L501.2200 Low 8.5-10.1 mg/dL CA 8.1 LAB L501.4100 Normal 15-37 U/L AST 22 LAB L501.4305 Normal 45-117 U/L ALK P 54 LAB L501.4405 Normal 12-78 U/L ALT 26 LAB L501.4600 Normal 0.20-1.00 mg/dL T BILI 0.70 LAB L501.5300 Normal 136-145 mmol/L NA 142 LAB L501.5600 Low 3.5-5.1 mmol/L K 3.3 LAB L501.5900 Normal 98-107 mmol/L CL 106 LAB L501.6100 Normal 21.0-32.0 mmol/L CO2 29.0 LAB L501.6200 Normal 5-15 GAP 7 Performed By: #### L500.4050, L501.4010 ####[facility] [address] [place], [place], [address] TROPONIN-I Collected: 08/25/2017 Status: F Source: [place] 1:[address] [facility] REPOSITORY Order Comment: 'TROP' Serial specimen #1, #2, #3, or #4: 1 TYPE CODE TESTS RESULT OUT OF RANGE REFERENCE UNITS LAB L501.4010 Normal <0.06 ng/mL < TROPONIN-I 0.02 Result Comment: TROPONIN-I EXPECTED VALUES <0.05 NEGATIVE 0.06 - 0.59 AT RISK OF TX > OR = 0.60 SUGGEST TX Performed By: #### L500.4050, L501.4010 ####[facility] [address] [place], [place], [address] CNPN Observed: 03/17/2017 Status: COMPLETED Source: [place] 12:00 AM [facility] REPOSITORY Telephone (OTOLMN) ---------ANDRE PADRON ([id number]) 1960 MDate Time Provider Department03/17/17 PEMA MARTINEZ OTOLMN During your visit today, we recorded the following information about you:Connie Rey Sec 03/17/2017 2:55 PM SignedPatient had surgery by Dr. Martinez for EXCISION PAROTID GLAND LATERAL LOBE W/DISSECTION ANDamp; NERVE PRES (Right) on 02/03.Patient calling regarding severe dry mouth. States he cannot go longer than 5minutes without liquids or lozenge.Pharmacy is accuratePema Martinez MD, 03/17/2017 4:27 PM SignedPrescribed salagen for dry mouth.David Elias Sec 03/20/2017 2:56 PM SignedPatient notified.Allergies As of Date: 2016 Noted Allergy ReactionVICODIN (HYDROCODONE-ACETAMINOPHE*03/24/2016 16 - Unknown Comments: Made patient feel like he was having with drawls from pain medication.Date Reviewed: 03/13/2017Reviewed by: Pema Martinez MD - Fully AssessedReason for Visit: Dry Mouth [1294]Primary Visit Diagnosis:Xerostomia [R68.2]Order(s):pilocarpine (SALAGEN, PILOCARPINE,) 5 mg tabletTake 1 tablet by mouth three times daily.Disp: 90 tabletRfl: 2Prescriptions as of 03/17/2017 Sig: PILOCARPINE 5 MG TABLET Take 1 tablet by mouth three * TEMAZEPAM 15 MG CAPSULE Take 15 mg by mouth at bedtim* PANTOPRAZOLE 40 MG TABLET,DEL* Take 40 mg by mouth once elvis*Problem List As Of Date 03/17/2017 Noted Resolved Anxiety [F41.9] INVALID FOR* Parotid mass [K11.9] INVALID FOR*03/13/2017 Sialocele [K11.6] INVALID FOR*Prescriptions ordered this encounter Disp Refills Start End PILOCARPINE 5 MG TABLET 90 t* 2 03/17/2017 Route: ORAL Sig: Take 1 tablet by mouth three times daily. 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 His face seems to be moving well. He has numbnessof his ear. He has noticed some increased swelling and some tendernessover the area that has worsened as she is taking more oral intake aftersurgery. He denies or fevers chills.Current Outpatient Prescriptions: temazepam (RESTORIL) 15 mg cap Take 15 mg by mouth at bedtime as needed.Disp: Rfl: 0pantoprazole DR (PROTONIX) 40 mg tablet Take 40 mg by mouth once daily.Disp: Rfl:No current facility-administered medications for this visit.EXAM:Constitutional - General Appearance: well developed, well nourished, without obviousdeformities Communication: speaks with a normal voice without hoarsenessHead AND Face - Well healing right parotidectomy incision, Numbness over right ear lob Facial nerve on the right intact in upper branches, subtle weakness inmidface and marginal mandibular branch There is fullness in the parotid bed on the right and tenderness topalpation Mild erythema of skin, without induration or warmth.PROCEDURE NOTE: Recommended Ultrasound guided needle aspiration rightparotid sialocele with botox injection. Risks, benefits, personnel andalternatives were explained. The patient wished to proceed. S/he wasre-identified and a time out obtained.PROCEDURE: Recommended Ultrasound guided aspiration of right parotidsialocele with botox injectionPREOPERATIVE DIAGNOSIS: right parotid sialocelePOSTOPERATIVE DIAGNOSIS : sameINDICATIONS: right parotid sialocele s/p parotidectomyANESTHESIA: 1% lidocaine with 1:100,000 epinephrinePROCEDURE: With the patient sitting upright, informed consent wasobtained. The patient was re-identified and a time out made. The areaover the parotid was anesthetized with 1 cc of 1% lidocaine with 1 100, 000epinephrine. We then used ultrasound to localize the lesion fluidcollection within the right parotid bed. There was a hypoechoic areameasuring 2 cm by half a centimeter consistent with a right parotidsialocele.Then under ultrasound guidance a 23-gauge needle was used withconfirmation on ultrasound imaging of the needle within the hypoechoicfluid to aspirate fluid collection. This yielded a serous drainage I wasable to drain 2 cc of fluid. This was consistent with a sialocele. Thereis no evidence of any purulence. Following this drainage I then used [id number] needle and botulinum A 50 units diluted into 2 cc's of injectablesterile saline. I targeted the remnant parotid tissue within the rightparotid bed using the ultrasound and then under ultrasound guidance Idistributed that 2 cc of botulinum a mixture into the parotid tissue andmultiple regions and injected a total of 40 cc. At the completion of theinjection within seconds the patient reported lightheadedness andtherefore we laid him back in the exam chair in got him a cold washclothfor his head. After a few moments of complaining of lightheadedness thepatient then had a syncopal episode which appeared to be vaso-vagal innature. He did lose consciousness for 5 seconds and had some very brieftonic-clonic movements at the onset of loss of consciousness and he didbecome incontinent of urine. We used sniffing salt to help him regainconsciousness and he did not have any post ictal period as he was a+pP3yudfegnrqlf after regaining conciousness. Given these events we calledthe rapid response team for evaluation. He vital signs were normal andhis finger stick glucose was also normal. He was taken by the rapidresponse team in stable condition to the emergency room for furtherevaluation.FINDINGS: right parotid sialocele - 2 cc's of fluid aspirated. 40 unitsof botulinum toxin A injected into parotid. 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 Will have patient f/u in 4-6 weeks to check that sialocele has notre-accumulated2. Patient taken to emergency room to rule out other causes of syncope andloss of continence.3. I did review the pathology with the patient and his daughter prior tothe needle aspiration procedurePema Martinez MD ED NOTE Observed: 02/22/2017 Status: COMPLETED Source: [place] 6:11 PM [facility] REPOSITORY HNO ID: [id number]: Ирина (Rn) OLAYINKA Boervice: Emergency MedicineAuthor Type: Registered NurseType: ED NotesFiled: 02/22/2017 6:12 PMNote Text: Discharge instructions reviewed with patient. Aware to f/u with pcp.Discharged home with daughter. TROPONIN T Collected: 02/22/2017 Status: F Source: [place] 3:47 PM [facility] REPOSITORY TYPE CODE TESTS RESULT OUT OF REFERENCE UNITS RANGE LAB TROPT 0.000-0.029 ng/mL Troponin T <0.010 Performed By: #### LEANDRO ####[facility] [address] [place], [place] [phone] PROGRESS Observed: 02/22/2017 Status: COMPLETED Source: [place] 2:46 PM [facility] REPOSITORY HNO ID: [id number]: Nancy Holliday (Pharmacist) Service: PharmacyAuthor Type: PharmacistType: Progress NotesFiled: 02/22/2017 4:00 PMNote Text:MEDICATION HISTORY AND MEDICATION RECONCILIATIONPatient Name:Stephanie PadronN: [id number]: 1960ource of history:Pharmacy records: [facility] in [place], [place] [phone] Nonadherence Identified: No barriers notedThe above information represents the best possible medication history: YesReconciliation completed? Yes All PIPELINES SUPERINTENDENT medications addressed by LIPAdditional comments: Additional Meds: Mirtazapine 15mg 1/2-1 po qd (Patient has not started yet)Allergies:ALLERGIESAllergen Reactions- Vicodin [Hydrocodon* Unknown Made patient feel like he was having with drawls from pain medication.Preferred Pharmacy: [facility] in [place], [place] [phone] PIPELINES SUPERINTENDENT Medications:Prior to Admission medications as of 02/22/17 1559Medication Sig Last Dose Takingpantoprazole DR (PROTONIX) 40 mg tablet Take 40 mg by mouth once daily.Yestemazepam (RESTORIL) 15 mg cap Take 15 mg by mouth at bedtime as needed.Matias Irving Brick Kiln Burner)February 22, 2017 2:46 Clif[place] LeonJune 2016 4:00 PM ED NOTE Observed: 02/22/2017 Status: COMPLETED Source: [place] 2:36 PM [facility] REPOSITORY HNO ID: [id number]: Ирина MosesRn) OLAYINKA Boervice: Emergency MedicineAuthor Type: Registered NurseType: ED NotesFiled: 02/22/2017 2:47 PMNote Text: Patient transferred to [facility]. Gait steady ambulating from cart to bed.Pt was having a procedure when he felt he was going to pass out.Daughter states she witnessed his eyes roll back, describes decerebrateposturing of arms, and tremors. Patient states he came to with peoplecalling his name. Incontinent of urine during episode. Vss. Denies pain.Cardiac monitoring initiated showing sinus rhythm. Oriented to cdu, poc,call system. Call light within reach. Meal tray provided.Nursing Plan: Vs Q4 hours R/o TX with cardiac enzymes and ekgs Cardiac monitoring Monitor pain and medicate as needed Maintain patient safety ED NOTE Observed: 02/22/2017 Status: COMPLETED Source: [place] 2:29 PM [facility] REPOSITORY HNO ID: [id number]: Maddy MosesGift Shop Manager) KEITH OwensService: Emergency MedicineAuthor Type: Respiratory TherapistType: ED NotesFiled: 2016 2:30 PMNote Text: Patient in observation for syncope. No current respiratory hx or homemedications. SpO2 99% on ra. RR 18. HR 70. BS clear bilaterally. Ptstable, resting comfortably in NAD. No respiratory requirements at thistime. ED NOTE Observed: 02/22/2017 Status: COMPLETED Source: [place] 12:44 PM [facility] REPOSITORY HNO ID: [id number]: Toña (Rn) Andyr, RNService: Emergency MedicineAuthor Type: Registered NurseType: ED NotesFiled: 02/22/2017 12:45 PMNote Text: NAD noted, respirations even and unlabored, updated regarding plan ofcare , verbalized understanding CBC AND DIFFERENTIAL Collected: 02/22/2017 Status: F Source: [place] 11:58 AM [facility] REPOSITORY TYPE CODE TESTS RESULT OUT OF REFERENCE UNITS RANGE LAB WBC 3.70-11.00 k/uL WBC 8.50 LAB RBC 4.20-6.00 m/uL RBC 4.47 LAB HGB 13.0-17.0 g/dL Hemoglobin 14.0 LAB HCT Low 39.0-51.0 % Hematocrit 38.7 LAB MCV 80.0-100.0 fL MCV 86.6 LAB MCH 26.0-34.0 pG MCH 31.3 LAB MCHC High 30.5-36.0 g/dL MCHC 36.2 LAB RDWCV 11.5-15.0 % RDW-CV 12.1 LAB PLTCT 150-400 k/uL Platelet 276 Count LAB MPV Low 9.0-12.7 fL MPV 8.3 LAB ANEUT % Neut% 81.9 LAB AANEUT 1.45-7.50 k/uL Abs Neut 6.96 LAB ALYMP % Lymph% 9.2 LAB AALYMP Low 1.00-4.00 k/uL Abs Lymph 0.78 LAB AMONO % [place]% 6.1 LAB AAMONO 0.00-0.86 k/uL Abs [place] 0.52 LAB AEOS % Eosin% 2.1 LAB AAEOS 0.00-0.45 k/uL Abs Eosin 0.18 LAB ABASO % Baso% 0.7 LAB AABASO 0.00-0.10 k/uL Abs Baso 0.06 LAB AUNRBC 0 /100 WBC NRBCs 0.0 LAB NRBC 0 /100 WBC NRBCs 0 LAB ABNRBC k/uL Absolute nRBC 0.00 LAB DTYP DTYPE Auto Diff Performed By: #### CBCDIF, CKCKMB, CMP, LEANDRO ####[facility] [place], [place] [phone] CK, TOTAL AND CKMB Collected: 02/22/2017 Status: F Source: [place] 11:58 AM [facility] REPOSITORY TYPE CODE TESTS RESULT OUT OF RANGE REFERENCE UNITS LAB CK 51-298 U/L CK 180 Result Comment: Please note the updated, gender-specific reference range for this test (effective 08/25/2016). LAB MB <7.7 ng/mL MB 3.5 Result Comment: Please note the updated, gender-specific reference range for this test (effective 08/26/2016). LAB CKMBRI 0.0-4.0 % CK 1.9 MB % Performed By: #### CBCDIF, CKCKMB, CMP, LEANDRO ####[facility] [place], [place] [phone] COMP METABOLIC PANEL Collected: 02/22/2017 Status: F Source: [place] 11:58 [facility] REPOSITORY TYPE CODE TESTS RESULT OUT OF REFERENCE UNITS RANGE LAB TP 6.3-8.0 g/dL Protein, Total 6.9 LAB ALB 3.9-4.9 g/dL Albumin 3.9 LAB CA 8.5-10.2 mg/dL Calcium, Total 9.0 LAB TBIL 0.2-1.3 mg/dL Bilirubin, 0.7 Total LAB ALKP 36-108 U/L Alkaline 47 Phosphatase LAB AST 14-40 U/L AST 20 LAB GLU High 74-99 mg/dL Glucose 107 Result Comment: The [place] Diabetes Association (ADA) provides guidance for cutoff values for fasting glucose and random glucose. The ADA defines fasting as no caloric intake for at least 8 hours. Fasting plasma glucose results between 100 to 125 mg/dL indicate increased risk for diabetes (prediabetes).Fasting plasma glucose results greater than or equal to 126 mg/dL meet the criteria for diagnosis of diabetes. In the absence of unequivocal hyperglycemia, results should be confirmed by repeat testing. In a patient with classic symptoms of hyperglycemia or hyperglycemic crisis, random plasma glucose results greater than or equal to 200 mg/dL meet the criteria for diagnosis of diabetes.Reference: Standards of Medical Care in Diabetes 2016 , [place] [employer] Association. Diabetes Care. 2016.39(Suppl 1). LAB BUN 9-24 mg/dL BUN 14 LAB CRET 0.73-1.22 mg/dL Creatinine 0.88 LAB NA 136-144 mmol/L Sodium 139 LAB K 3.7-5.1 mmol/L Potassium 4.1 LAB CL 97-105 mmol/L Chloride 102 LAB CO2 22-30 mmol/L CO2 25 LAB AGAP 9-18 mmol/L Anion Gap 12 LAB ALT 10-54 U/L ALT 21 LAB GFRAA eGFR- Amer. >60 LAB GFRNAA . eGFR-All Other Races >60 Result Comment: eGFR (Estimated GFR) Units of measure: mL/min/1.73 meters squaredeGFR is derived from the reexpressed MDRD Study equation using the following parameters: serum creatinine, age, gender and race. The creatinine assay has been calibrated to be traceable to IDMS.An eGFR <60 mL/min/1.73m2 for >3 months is consistent with chronic kidney disease. Refer to KDOQI guidelines for clinical interpretation.In patients with unstable renal function, e.g. those with acute kidney injury, the eGFR may not accurately reflect actual GFR. Performed By: #### CBCDIF, CKCKMB, CMP, LEANDRO ####[facility] [address] [place], [place] [phone] TROPONIN T Collected: 02/22/2017 Status: F Source: [place] 11:58 AM [facility] REPOSITORY TYPE CODE TESTS RESULT OUT OF REFERENCE UNITS RANGE LAB TROPT 0.000-0.029 ng/mL Troponin T <0.010 Performed By: #### CBCDIF, CKCKMB, CMP, LEANDRO ####[facility] [address] [place], [place] [phone] ED NOTE Observed: 02/22/2017 Status: COMPLETED Source: [place] 11:39 AM [facility] REPOSITORY HNO ID: [id number]: Danuta Thompson CTS (Ct)ervice: Emergency MedicineAuthor Type: Clinical TechnicianType: ED NotesFiled: 02/22/2017 11:39 AMNote Text: Pt vital signs updated ED NOTE Observed: 02/22/2017 Status: COMPLETED Source: [place] 11:29 AM [facility] REPOSITORY HNO ID: [id number]: Toña (Rn) OLAYINKA Wildeervice: Emergency MedicineAuthor Type: Registered NurseType: ED NotesFiled: 02/22/2017 11:29 AMNote Text: Changed out of soiled pants and into patient gown ED PROV NOTE Observed: 02/22/2017 Status: COMPLETED Source: [place] 11:10 AM [facility] REPOSITORY HNO ID: [id number]: Elio Ruffin) CASSY Thomaservice: Emergency MedicineAuthor Type: PhysicianType: ED Provider NotesFiled: 2016 4:32 PMNote Text:ED Provider NotePatient Name: Andre PadronMRN: [id number] DATE: 02/22/17HistoryPatient presents with:SyncopeHPI Comments: 57 y/o M with PMHx of GERD and s/p parotidectomy 02/03/17presents to ED with daughter from outpatient ENT appointment for syncopalepisode. Pt states he was having a procedure to drain a pocket of fluidand inject botox into his parotid gland today. Pt states he began feelingclammy and pale while sitting in the chair during the injection. Thedaughter reports the patient passed out and his upper extremities curledand was shaking which lasted about 10 seconds. Pt also had anincontinence episode at that time. Pt has no history of seizures. Ptdenies CP, SOB, nausea, lightheadedness, and dizziness before and afterthe syncopal episode. The patient is asymptomatic at this time. Deniesfevers, chills, fatigue, new weakness, lightheadedness, dizziness, hearingloss, vision changes, tinnitus, memory loss, confusion, CP, SOB, cough,dysphagia, abd pain, N/V/D, melena, dysuria/hematuria, numbness/tingling.History provided by: PatientLanguage manager water wastewater used: NoPAST MEDICAL HISTORYDiagnosis Date- GERD (gastroesophageal reflux disease)PAST SURGICAL HISTORYNo date: LZEVYGGXQHDA04/13/2014: COLONOSCOP W/ OR W/O BRS SPEC Comment: Ffghnagtuwu63/13/2014: EGD W/O OR W/BRUSH/WASH Comment: EGDNo date: UT ANESTH,ELBOW,NOS Comment: RightNo date: UT ANESTH,KNEE JOINT; NOS Comment : LeftFAMILY HISTORY Diabetes Father Heart disease [OTHER] FatherSocial History Marital status: Spouse name: Years of education: Number of children: 2Occupational 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 [employer] History Main Topics Smoking status: Never Smoker Alcohol use: Yes Comment: occassional Drug use: No Sexual activity: Yes Partners with: FemaleALLERGIESAllergen Reactions- Vicodin [Hydrocodon* Unknown Made patient feel like he was having with drawls from pain medication.Review of SystemsConstitutional: Negative for chills, fatigue and fever.HENT: Negative for congestion.Eyes: Negative for visual disturbance.Respiratory: Negative for shortness of breath.Cardiovascular: Negative for chest pain.Gastrointestinal: Negative for abdominal pain, nausea and vomiting.Genitourinary: Negative for dysuria.Musculoskeletal: Negative for gait problem, neck pain and neck stiffness.Neurological: Positive for syncope. Negative for dizziness, weakness,light-headedness and numbness.Psychiatric/Behavioral: Negative for suicidal ideas.Physical ExamBP 143/80 Pulse 72 Temp (Src) 97.5 (Oral) Resp 20 Ht 6' 1 (1.85m) Wt 235 lb (106.6kg) SpO2 96% BMI 31.01 kg/(m2).Physical ExamConstitutional: He is oriented to person, place, and time. He appearswell-developed and well-nourished. No distress.Well appearing and pleasant male in no acute distress.HENT:Head: Normocephalic and atraumatic.Mouth/Throat: Oropharynx is clear and moist.Eyes: No scleral icterus.PERRLA. EOM intact bilaterally.Neck: Neck supple.Cardiovascular: Normal rate, regular rhythm and normal heart sounds. Examreveals no gallop and no friction rub.No murmur heard.Pulses : Radial pulses are 2+ on the right side, and 2+ on the left side. Dorsalis pedis pulses are 2+ on the right side, and 2+ on the leftside.Pulmonary/Chest: Effort normal and breath sounds normal. No respiratorydistress. He has no wheezes. He has no rales. He exhibits no tenderness.Abdominal: Soft. Bowel sounds are normal. He exhibits no distension. Thereis no tenderness.Musculoskeletal: Normal range of motion.Neurological: He is alert and oriented to person, place, and time.Alert AND oriented x 3. Speech is clear and fluent. CN II-XII are grosslyintact with symmetrical facial movements and shoulder shrug. Strength isfull bilaterally in UE and LE. Sensation to light touch is intact in UEand LE bilaterally. ROCKY and fine finger movements are intact. There is nodysmetria on goafdt-de-nlda. Tandem gait is steady with normal steps.Skin: Skin is warm and dry. He is not diaphoretic.Psychiatric: He has a normal mood and affect.Nursing note and vitals reviewed.Diagnostic TestingED Labs Ordered and ReviewedGLUCOSE, BLOOD (POC) - Abnormal; Notable for the following: Result Value Ref Range Glucose, Point of Care 104 (*) 65 - 100 mg/dL All other components within normal limits Narrative: Meter ID: [id number] + DIFF - Abnormal; Notable for the following: Hematocrit 38.7 (* ) 39.0 - 51.0 % MCHC 36.2 (*) 30.5 - 36.0 g/dL MPV 8.3 (*) 9.0 - 12.7 fL Abs Lymph 0.78 (*) 1.00 - 4.00 k/uL All other components within normal limitsCOMP METABOLIC PANEL - Abnormal; Notable for the following: Glucose 107 (*) 74 - 99 mg/dL All other components within normal limitsTROPONIN TCK TOTAL AND CK-MBTROPONIN TProceduresMedical Decision Making / ED CourseED CourseVital signs were reviewed.Triage records were reviewed.Medical records were reviewed.Nursing notes were reviewed and incorporated.Vital signs on arrival: wnl.57 y/o M who is s/p parotidectomy 02/03/17 presents from outpatient ENTappointment for syncopal episode during botox injection. Pt is afebrile,nontoxic appearing, and hemodynamically stable. On examination, no focalneurologic deficits. Gait stable and steady. Pt asymptomatic at this time.LABS: CBC shows no anemia and no leukocytosis. CMP shows no electrolyteabnormalities. Cardiac markers wnl. Glucose 104. EKG was reviewed anddemonstrated a normal sinus rhythm at 66 beats per minute, normal axis, normal intervals, reviewed and interpreted by Dr. Thomas. No additionalacute changes are noted.Pt sent to CDU for repeat cardiac markers and EKG.Pt understood suspected diagnosis and instructions, with noquestions/concerns at this time. No barriers of communication wereapparent.Patient seen by and plan discussed with ED attending , Dr. Thomas.Encounter Diagnosis ICD-10-CM1. Syncope, unspecified syncope type B92SmprNrb Patient was DISCHARGE.CDU Plan of CareCurrent clinical impression and indication for CDU placement: syncope, ACSrule out.Labs: Repeat Cardiac MarkersImaging: NoneProcedures: NoneConsults: NoneClinical Reassessment: Testing and results edduedci35 hour goals: Sxs resolved or improvedCondition at time of disposition : improved and stableSIGNATURE: Robby Knott (Julio C) RAMAN Gtz02/22 1454Attending NoteI have personally performed a face to face assessment of the patient andhave reviewed the PA/SAP HANA DEVELOPER note. My gordon findings include:Mr Padron Presented to the emergency department after syncopal episode thatoccurred in the ENT office today. The patient was undergoing procedure toaddress a sialocele, and shortly after an injection of Botox into theparotid gland he had a syncopal episode. Medical personnel reported briefloss of consciousness with some associated posturing but no overttonic-clonic activity. The patient regained consciousness within seconds, and had a normal mental status when consciousness was regained. Onevaluation, physical exam is reassuring. Vital signs are reassuring. EKGis unchanged from previous. The patient was observed briefly in the CDUfor serial cardiac markers and echocardiogram which were negative. He wasultimately discharged in stable condition and she' ll follow up with hisprimary care physician.Signature: ELIO THOMAS MDDate: 02/23/2017Time: 4:30 Armando Thomas MD02/23/17 7982 ED NOTE Observed: 02/22/2017 Status: COMPLETED Source: [place] 11:10 AM [facility] REPOSITORY HNO ID: [id number]: Toña (Rn) OLAYINKA Wildeervice: Emergency MedicineAuthor Type: Registered NurseType: ED NotesFiled: 02/22/2017 11:24 AMNote Text:Assumed care of patient, awake and alert, denies complaints at this time, reports feeling cold, clammy at outpatient appt, then +loc, dtr reportswitnessing posturing to BUE, +loss of bladder control. Patient currentlywith no new neuro deficits, has right facial paralysis/parasthesias andslurred speech reported as preexisting from surgical procedure, Jay PAREDES 4, ED NOTE Observed: 02/22/2017 Status: COMPLETED Source: [place] 10:23 AM [facility] REPOSITORY HNO ID: [id number]: Elio Ruffin) Suzan Thomasice: (none)Author Type: PhysicianType: ED NotesFiled: 02/22/2017 10:23 AMNote Text: Bed: TCI-01Expected date:Expected time:Means of arrival:Comments:Andre Padron [id number] is coming from ENT Clinic for syncope. Was there forpost op check post parotidectomy. Found sialocele and injected botox intoparotid gland...then syncope for 10+ seconds with some posturing but noobvious seizure. Awoke with smelling salts, had normal VS once awake. CNOV Observed: 02/22/2017 Status: COMPLETED Source: [place] 8:50 AM [facility] REPOSITORY Office Visit (OTOLMN) ---------ANDRE PADRON ([id number]) 1960 MDate Time Provider Department02/22/17 8:50 AM PEMA MARTINEZ OTOLMN During your visit today, we recorded the following information about you:Kim Correa, RN, RN 2016 8:45 AM SignedTobacco Use: NeverWas smoking cessation packet given? 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 His face seems to be moving well. He has numbness of hisear. He has noticed some increased swelling and some tenderness over the areathat has worsened as she is taking more oral intake after surgery. He deniesor fevers chills.Current Outpatient Prescriptions:temazepam (RESTORIL) 15 mg cap Take 15 mg by mouth at bedtime as needed. Disp:Rfl: 0pantoprazole DR (PROTONIX) 40 mg tablet Take 40 mg by mouth once daily. Disp:Rfl:No current facility-administered medications for this visit.EXAM:Constitutional - General Appearance: well developed, well nourished, without obviousdeformities Communication: speaks with a normal voice without hoarsenessHead ANDamp; Face - Well healing right parotidectomy incision, Numbness over right ear lob Facial nerve on the right intact in upper branches, subtle weakness inmidface and marginal mandibular branch There is fullness in the parotid bed on the right and tenderness to palpation Mild erythema of skin, without induration or warmth.PROCEDURE NOTE: Recommended Ultrasound guided needle aspiration right parotidsialocele with botox injection. Risks, benefits, personnel and alternativeswere explained. The patient wished to proceed. S/he was re-identified and atime out obtained.PROCEDURE: Recommended Ultrasound guided aspiration of right parotid sialocelewith botox injectionPREOPERATIVE DIAGNOSIS : right parotid sialocelePOSTOPERATIVE DIAGNOSIS: sameINDICATIONS: right parotid sialocele s/p parotidectomyANESTHESIA: 1% lidocaine with 1:100,000 epinephrinePROCEDURE: With the patient sitting upright, informed consent was obtained. Thepatient was re-identified and a time out made. The area over the parotid wasanesthetized with 1 cc of 1% lidocaine with 1 100, 000 epinephrine. We thenused ultrasound to localize the lesion fluid collection within the rightparotid bed. There was a hypoechoic area measuring 2 cm by half a centimeterconsistent with a right parotid sialocele.Then under ultrasound guidance a 23-gauge needle was used with confirmation onultrasound imaging of the needle within the hypoechoic fluid to aspirate fluidcollection. This yielded a serous drainage I was able to drain 2 cc of fluid.This was consistent with a sialocele. There is no evidence of any purulence.Following this drainage I then used a 25- gauge needle and botulinum A 50 unitsdiluted into 2 cc's of injectable sterile saline. I targeted the remnantparotid tissue within the right parotid bed using the ultrasound and then underultrasound guidance I distributed that 2 cc of botulinum a mixture into theparotid tissue and multiple regions and injected a total of 40 cc. At thecompletion of the injection within seconds the patient reported lightheadednessand therefore we laid him back in the exam chair in got him a cold washclothfor his head. After a few moments of complaining of lightheadedness thepatient then had a syncopal episode which appeared to be vaso-vagal in nature.He did lose consciousness for 5 seconds and had some very brief tonic-clonicmovements at the onset of loss of consciousness and he did become incontinentof urine. We used sniffing salt to help him regain consciousness and he didnot have any post ictal period as he was a+oX4 immediately after regainingconciousness. Given these events we called the rapid response team forevaluation. He vital signs were normal and his finger stick glucose was alsonormal. He was taken by the rapid response team in stable condition to theemergency room for further evaluation.FINDINGS: right parotid sialocele - 2 cc's of fluid aspirated. 40 units ofbotulinum toxin A injected into parotid. Patient tolerated the procedure wellhowever appeared to have vaso-vagal syncope folloiwing the procedure with lossof continence of bladder and was taken to the emergency room by the rapidresponse team for further evaluation . 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 Will have patient f/u in 4-6 weeks to check that sialocele has notre-accumulated2. Patient taken to emergency room to rule out other causes of syncope and lossof continence.3. I did review the pathology with the patient and his daughter prior to theneedle aspiration procedureTHERESA Gileseferring Provider: SELF [200] Allergies As of Date: 02/22/2017 Noted Allergy ReactionVICODIN (HYDROCODONE-ACETAMINOPHE*03/24 16 - Unknown Comments: Made patient feel like he was having with drawls from pain medication.Date Reviewed: 02/22/2017Reviewed by: Johan MosesRn) RENATO Julian - Fully AssessedReason for Visit: Post-Op Visit [1236] Cmt: S/P EXCISION PAROTID GLANDVisit Diagnosis: Sialocele [K11.6]Prescriptions as of 02/22/2017 Sig:X OMEPRAZOLE 40 MG CAPSULE, ANGEL* Take 40 mg by mouth once elvis*X OXYCODONE-ACETAMINOPHEN 5 MG-* Take 1 tablet by mouth every *X LORAZEPAM 0.5 MG TABLET Take 1 tablet by mouth as dir*Medication notes this encounter OXYCODONE-ACETAMINOPHEN 5 MG-325 MG TABLET >> Kim Correa RN, RN 02/22/2017 8:44 AM >> KIM CORREA RN MonFeb 22, 2017 8:44 AM No longer taking this medicationProblem List As Of Date 02/22/2017 Noted Resolved Anxiety [F41.9] INVALID FOR* Parotid mass [K11.9] INVALID FOR*Visit Notes:>> Kim Dewey (Renato) RENATO Correa MonFeb 22, 2017 8:44 AM Status : SignedTobacco Use: NeverWas smoking cessation packet given? N/A - Patient is a non-smoker or quit>1 year ago.Was a referral initiated?N/A Patient is a ckk-ckelqvIygbhv-ht and Disposition History RecordedEncounter Number: [id number] Status:Closed by PEMA MARTINEZ MD on 03/13/17 PROGRESS Observed: 02/04/2017 Status: COMPLETED Source: [place] 9:11 AM [facility] REPOSITORY HNO ID: [id number]: Pancho Rodriguezervice: OtolaryngologyAuthor Type: ResidentType: Progress NotesFiled: 02/04/2017 9:12 AMNote Text:OTOLARYNGOLOGY - HEAD AND NECK SURGERYINPATIENT PROGRESS NOTEPATIENT NAME : Andre PadronN: [id number] Procedure : Procedure(s):EXCISION PAROTID TUMOR OR GLANDDate of Surgery: 02/03/2017Reason for Surgery: Pre-Op Diagnosis Codes: * 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]Surgeon: Pema Martinez MDINTERVAL HPI:JOSE overnightTolerating dietPain well controlledEXAMBP 110/62 Pulse 68 Temp 37.2 ?C (99 ?F) (Temporal Artery) Resp 16 SpO2 95%INTAKE/OUTPUT:Intake/Output Summary (Last 24 hours) at 02/04/17 0911Last data filed at 02/04/17 0851 Gross per 24 hourIntake 5291 mlOutput 1385 mlNet 3906 mlEXAM:General: No acute distressNeuro: TUVt1Eelumtwcid: breathing unlaboredIncisions: CDIDrains: SSCURRENT INPATIENT MEDICATIONS:Current hospital medications:dextrose 5% in NaCl 0.45% with 20 mEq/L KCl iv infusion 100 mL/hrINTRAVENOUS CONTINUOUSondansetron (PF) 4 mg injection (ZOFRAN) 4 mg INTRAVENOUS q 6 H PRNbacitracin 500 unit/gram TOPICAL BIDoxyCODONE-acetaminophen 5-325 mg 1-2 tablet (PERCOCET) 1-2 tablet ORAL q 4H PRNacetaminophen 650 mg tab(s) (TYLENOL ) 650 mg ORAL q 6 H PRNHYDROmorphone 0.4 mg injection (DILAUDID) 0.4 mg INTRAVENOUS q 2 H PRNheparin 5,000 Units injection 5,000 Units SUBCUTANEOUS q 12 AMBRIZ/P 57 year old male 1 Day Post-Op parotid- d/c drain- d/c homeSignature: Pancho Yusuf MDOtolaryngology, PNP1Lduhh: [id number] questions after hours or on weekends please page [phone]. CBC AND DIFFERENTIAL Collected: 02/04/2017 Status: F Source: [place] 3:20 AM [facility] REPOSITORY TYPE CODE TESTS RESULT OUT OF REFERENCE UNITS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
[2017-12-26 07:36] LABS: Hemoglobin 14.1 g/dl (13.0-16.5); Mean Corp Hgb Conc 36.2 g/gl (32-36); Mean Corpuscular Hgb 31.6 pg (27.0-32.0); Mean Corpuscular Volume 87.4 fL (80-94); Mean Platelet Vol. 8.6 fl (6.2-12.0); Platelet Count 301 K/mm3 (150-450); RBC Distribution Width SD 39.9 fl (35.1-43.9); Red Blood Count 4.46 M/mm3 (4.6-6.2); White Blood Count 4.9 K/mm3 (4.4-11.0)
[2017-12-26 07:47] LABS: Scan Indicated on CBC? Y/N NO
[2017-12-26 09:00] LABS: Cholesterol 149 mg/dL (200); Estradiol 32.6 pg/mL; Glucose 104 mg/dL (74-106); High Density Lipoprotein 39 mg/dL; PSA,Total - Annual Screen 0.77 ng/mL (0.00-4.00); Thyroid Stim Hormone (TSH) 3.37 uIU/mL (0.358-3.74); Triglycerides 140 mg/dL; Very Low Density Lipoprotein 28 mg/dL (5-40)
[2017-12-27 08:21] LABS: Vitamin B12 490 pg/mL (211-911); Vitamin D,25 Hydroxy 31.7 ng/mL (29.95-100.01)
== END ==
PROVIDERS: Visit Provider Specialist
DX: E27.40 Unspecified adrenocortical insufficiency (principal); E07.89 Other specified disorders of thyroid; R53.83 Other fatigue
CPT/HCPCS: 36415; 80061; 82306; 82607; 82670; 82947; 84153; 84403; 84443; 85027; G0103

== ENCOUNTER → 2018-07-30 12:53 | Outpatient (CLI) | payer BC, SELFPAY ==
[2018-07-30 14:39] LABS: Basophil# 0.04 X10^3/uL; Basophil% 0.7 % (0-1); Eosinophil# 0.25 X10^3/uL; Eosinophils% 4.5 % (0-5); Hematocrit 49.3 % (40-54); Hemoglobin 17.3 g/dl (13.0-16.5); Lymphocyte % 30.3 % (19-41); Mean Corp Hgb Conc 35.1 g/gl (32-36); Mean Corpuscular Hgb 30.4 pg (27.0-32.0); Mean Corpuscular Volume 86.6 fL (80-94); Mean Platelet Vol. 8.8 fl (6.2-12.0); Monocyte% 10.7 % (0-10); Neutrophil % 53.4 % (47-70); Platelet Count 323 K/mm3 (150-450); Red Blood Count 5.69 M/mm3 (4.6-6.2); White Blood Count 5.6 K/mm3 (4.4-11.0)
[2018-07-30 14:40] LABS: POSITIVE COUNT NO; POSITIVE DIFFERENTIAL NO; POSITIVE MORPHOLOGY NO
[2018-07-30 15:05] LABS: AST(SGOT) 24 U/L (15-37); Alanine Aminotransfer ALT/SGPT 43 U/L (16-61); Albumin, Serum 3.8 g/dL (3.2-5.0); Alkaline Phosphatase 54 U/L (45-117); Anion Gap 7 (5-15); BUN 12 mg/dL (7-18); BUN/Creat Ratio 13.1 RATIO (10-20); Calcium,Total 8.8 mg/dL (8.5-10.1); Chloride 106 mmol/L (98-107); Creatinine, Serum 0.92 mg/dL (0.70-1.30); EST Glomerular Filtration Rate 90 mL/min (>60); Est Glom Filt Rate - Afr Amer 109 mL/min (>60); Glucose 92 mg/dL (74-106); Lipase 181 U/L (73-393); Potassium 4.1 mmol/L (3.5-5.1); Protein, Total 7.8 g/dL (6.4-8.2); Sodium Level 140 mmol/L (136-145); Thyroid Stim Hormone (TSH) 3.24 uIU/mL (0.358-3.74)
[2018-08-07 16:27] LABS: Testosterone, Total 766 ng/dL (264-916)
== END ==
PROVIDERS: Family Provider Family Medicine; PCP Family Medicine; Referring Provider Family Medicine; Visit Provider Family Medicine
DX: R39.11 Hesitancy of micturition (principal); R10.13 Epigastric pain; F33.8 Other recurrent depressive disorders
CPT/HCPCS: 36415; 80053; 83690; 84402; 84403; 84443; 85025

== ENCOUNTER → 2018-08-21 08:03 | Outpatient (CLI) | payer BC, SELFPAY ==
--- NOTE | 2018-08-21 08:15 | RAD_ITS ---
STUDY: AIR-CONTRAST UPPER GI SERIES AND SMALL BOWEL FOLLOW-THROUGH EXAMINATION. REASON FOR EXAM: Male, 58 years old. Dyspepsia. Abdominal bloating. FLUOROSCOPY TIME (if supplied): (0:40) minutes/seconds. 16 images were obtained. TECHNIQUE: The patient ingested barium. Multiple images of the esophagus, stomach and duodenum were obtained. Following this, a small bowel follow-through examination was performed. COMPARISON: None. FINDINGS: The esophagus is unremarkable. There is no evidence of esophageal reflux. No mass lesion is seen. The stomach and duodenum are unremarkable. There is no evidence of ulceration. No mass lesions present. The small bowel transit is normal. There is no evidence of intrinsic or extrinsic small bowel disease. The terminal ileum is unremarkable. RAD/Upper GI/w Small Bowel IMPRESSION: Unremarkable air contrast upper GI series and small bowel follow-through examination. Electronically Signed: Ray Rodriguez MD at 15:13 EST Tel [phone], Service support ,
--- OUTSIDE RECORDS SUMMARY | 2018-10-07 06:00 | XMS RPT_ITS ---
:1960 Author Organization [facility] Care Team Providers Name Role Phone SANG URENA DO Attending Unavailable CONNER ARVIZU, LANA Verduzco Primary Care Unavailable SANG URENA DO Attending Unavailable CONNER ARVIZU, LANA A Primary Care Unavailable Lana Prieto Attending Unavailable Conner, Lana Primary Care Unavailable Conner, Lana Referring Unavailable Lana Prieto Attending Unavailable Conner Lana Referring Unavailable Conner, Lana Primary Care Unavailable Oumar Bhatt Attending Unavailable Oumar Bhatt Referring Unavailable Primay Care Physicia, No Primary Care Unavailable Lana Prieto Attending Unavailable Conner, Lana Referring Unavailable Prieto, Lana Primary Care Unavailable PROBLEMS PROBLEMS DATE TYPE CONDITION / CODE ATTENDING STATUS SOURCE 07/30/2018 Unknown R39.11 - Lana Prieto Active [facility] [facility] R39.11(ICD-10) Repository 07/30/2018 Unknown F33.8 - Other Lana Prieto Active [place] recurrent [facility] depressive Hospital disorders / Repository F33.8(ICD-10) 07/30/2018 Unknown R10.13 - ConnerNabeelic Active [place] Epigastric pain / Community R10.13(ICD-10) Hospital Repository 01/01/2018 Unknown H34.9 - Lana Prieto Active [place] Unspecified [facility] occlusion / Repository H34.9(ICD-10) PROCEDURES PROCEDURES No Procedure Records FoundRESULTS RESULTS UPPER GI/W SMALL Observed: 08/21/2018 Status: F Source: [place] 8:09 AM [facility] REPOSITORY [facility] [address] [place] [address] Upper GI/w Small Bowel MR#: [id number] Acct: [id number] Name: ANDRE KENT Rep #: [id number] : 1960 M 58 From: Rya Rodriguez MD PCP: Lana Prieto MD Status: REG CLI Study: Upper GI/w Small Bowel Date of Exam: 08/21/18 Exam# [id number] Ordering Dr: Lana Prieto MD STUDY: AIR-CONTRAST UPPER GI SERIES AND SMALL BOWEL FOLLOW-THROUGH EXAMINATION. REASON FOR EXAM: Male, 58 years old. Dyspepsia. Abdominal bloating. FLUOROSCOPY TIME (if supplied): (0:40) minutes/seconds. 16 images were obtained. TECHNIQUE: The patient ingested barium. Multiple images of the esophagus, stomach and duodenum were obtained. Following this, a small bowel follow-through examination was performed. COMPARISON: None. FINDINGS: The esophagus is unremarkable. There is no evidence of esophageal reflux. No mass lesion is seen. The stomach and duodenum are unremarkable. There is no evidence of ulceration. No mass lesions present. The small bowel transit is normal. There is no evidence of intrinsic or extrinsic small bowel disease. The terminal ileum is unremarkable. RAD/Upper GI/w Small Bowel IMPRESSION: Unremarkable air contrast upper GI series and small bowel follow-through examination. 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 [place] Handle: Signed CBC W/DIFF, AUTOMATED Collected: 07/30/2018 Status: F Source: [place] 12:59 PM [facility] REPOSITORY TYPE CODE TESTS RESULT OUT OF RANGE REFERENCE UNITS LAB L100.1000 4.4-11.0 K/mm3 Normal WBC 5.6 LAB L100.1200 4.6-6.2 M/mm3 Normal RBC 5.69 LAB L100.1300 13.0-16.5 g/dl High HGB 17.3 LAB L100.1400 40-54 % Normal HCT 49.3 LAB L100.1500 80-94 fL Normal MCV 86.6 LAB L100.1600 27.0-32.0 pg Normal MCH 30.4 LAB L100.1700 32-36 g/gl Normal MCHC 35.1 LAB L100.1810 11.6-14.6 % Normal RDW CV 13.0 LAB L100.1820 35.1-43.9 fl Normal RDW SD 41.0 LAB L100.1900 150-450 K/mm3 Normal PLT 323 LAB L100.2000 6.2-12.0 fl Normal MPV 8.8 LAB L100.2100 47-70 % Normal NEUT% 53.4 LAB L100.2200 19-41 % Normal LY% 30.3 LAB L100.2300 0-10 % High MONO% 10.7 LAB L100.2400 0-5 % Normal EO% 4.5 LAB L100.2500 0-1 % Normal BASO% 0.7 LAB L100.2550 0.0-0.9 % Normal IM GRAN % 0.400 Result Comment: IG% - Immature Granulocytes (promyelocytes, myelocytes and metamyelocytes) > 1% indicates that a LEFT SHIFT is Present. LAB L100.2620 2.0-7.7 X10 3/uL Normal Absolute Neut 3.0 LAB L100.2720 0.83-4.51 X10 3/ul Normal Absolute Lymph 1.70 Performed By: #### L100.0100 #### [facility] [place], [place], [id number] COMPREHENSIVE METABOLIC Collected: 07/30/2018 Status: F Source: [place] 12:59 PM [facility] REPOSITORY TYPE CODE TESTS RESULT OUT OF RANGE REFERENCE UNITS LAB L501.0100 74-106 mg/dL Normal GLU 92 Result Comment: Please note revised GLUCOSE reference range effective 2017. LAB L501.1000 7-18 mg/dL Normal BUN 12 LAB L501.1100 0.70-1.30 mg/dL Normal CREAT,SERUM 0.92 Result Comment: The validity of the calculated GFR AND GFRAA in patients over 70 years has not been determined. Clinical correlation is essential. LAB L501.1110 >60 mL/min Normal EST GFR 90 Result Comment: Non- GFR Calc LAB L501.1115 >60 mL/min Normal EST GFR - AA 109 Result Comment: GFR Calc LAB L501.1300 10-20 RATIO Normal BUN/CRE 13.1 LAB L501.1500 6.4-8.2 g/dL T Normal PROT 7.8 LAB L501.1800 3.2-5.0 g/dL Normal ALB 3.8 LAB L501.1950 2.2-4.2 g/dL Normal GLOB 4.0 LAB L501.2000 0.9-2.4 RATIO Normal A/G 1.0 LAB L501.2200 8.5-10.1 mg/dL CA Normal 8.8 LAB L501.4100 15-37 U/L Normal AST 24 LAB L501.4305 45-117 U/L Normal ALK P 54 LAB L501.4405 16-61 U/L Normal ALT 43 LAB L501.4600 0.20-1.00 mg/dL T Normal BILI 1.00 LAB L501.5300 136-145 mmol/L NA Normal 140 LAB L501.5600 3.5-5.1 mmol/L K Normal 4.1 LAB L501.5900 98-107 mmol/L CL Normal 106 LAB L501.6100 21.0-32.0 mmol/L Normal CO2 27.0 LAB L501.6200 5-15 Normal GAP 7 Performed By: #### L500.4050, L501.2450, L501.9520 #### [facility] [address] [place], [address] LIPASE Collected: 07/30/2018 Status: F Source: [place] 12:59 PM [facility] REPOSITORY TYPE CODE TESTS RESULT OUT OF RANGE REFERENCE UNITS LAB L501.2450 73-393 U/L Normal LIPASE 181 Performed By: #### L500.4050, L501.2450, L501.9520 #### [facility] [address] [place], [address] THYROID STIM HORMONE Collected: 07/30/2018 Status: F Source: [place] (TSH) 12:59 PM [facility] REPOSITORY TYPE CODE TESTS RESULT OUT OF RANGE REFERENCE UNITS LAB L501.9520 0.358-3.74 uIU/mL Normal TSH 3.24 Performed By: #### L500.4050, L501.2450, L501.9520 #### [facility] [address] [place], [address] TESTOSTERONE, TOTAL / Collected: 07/30/2018 Status: F Source: [place] FREE 12:59 PM [facility] REPOSITORY Order Comment: Has Patient had X-rays with Contrast this admission? N TYPE CODE TESTS RESULT OUT OF RANGE REFERENCE UNITS LAB L3100.5320 264-916 ng/dL Normal 766 TESTOSTER,TO HÉCTOR Result Comment: Adult male reference interval is based on a population of healthy nonobese males (BMI <30) between 19 and 39 years old. Marbin et.al. JCEM 2017,102;3993-3888. PMID: [id number]. LAB L3100.5340 . ng/dL TESTOSTER,FREE Normal Test not performed Result Comment: Unable to calculate result since non-numeric result obtained for component test. LAB L3100.5360 . % Test not Normal TESTOSTER %FREE performed Result Comment: Due to technical problems in testing, a valid result was not obtained. The remaining specimen was not sufficient for repeat testing. Contacted Poppy at your facility on 08-07-2018 Performed By: #### L3100.5310 #### [facility] (refer to report for specific site) refer to report for address and phone number TESTO Collected: 04/18/2018 Status: F Source: [facility] 4:23 PM [facility] REPOSITORY TYPE CODE TESTS RESULT OUT OF REFERENCE UNITS RANGE LAB TESTO(LOIN 241.0-827.0 ng/dL C) Testosterone Lvl 300.1 Performed By: #### TESTO, DHEAS #### [address] [address] #### ESTGEN #### [address] [address] ESTGEN Collected: 04/18/2018 Status: F Source: [facility] 4:23 PM [facility] REPOSITORY TYPE CODE TESTS RESULT OUT OF REFERENCE UNITS RANGE LAB ESTRAD(OMEGA NC) Estradiol Lvl 19.6 Result Comment: Reference range: 10.0 to 42.0 Unit: pg/mL (NOTE) REFERENCE INTERVAL: Estradiol by TMS Access complete set of age- and/or gender-specific reference intervals for this test in the [employer] ([employer]). Test developed and characteristics determined by [employer]. See Compliance Statement B: [employer] LAB ESTR(LOINC) Estrone Lvl 12.5 Result Comment: Reference range: 9.0 to 36.0 Unit: pg/mL (NOTE) REFERENCE INTERVAL: Estrone by TMS Access complete set of age- and/or gender-specific reference intervals for this test in the [employer] Laboratory Test Directory ([employer]). Test developed and characteristics determined by [employer]. See Compliance Statement B: [facility] LAB ESTROG(LOINC) Estrogens Total 32.1 Result Comment: Reference range: 19.0 to 69.0 Unit: pg/mL (NOTE) REFERENCE INTERVAL: Estrogens Total Calculation Access complete set of age- and/or gender-specific reference intervals for this test in the [employer] Laboratory Test Directory ([employer]). Performed by [employer], [address] [place] [id number] [email or web address], Kun Murguia MD, Lab. Director Performed By: #### TESTO, DHEAS #### [address] [address] #### ESTGEN #### [address] [address] DHEAS Collected: 04/18/2018 Status: F Source: [facility] 4:23 PM [facility] REPOSITORY TYPE CODE TESTS RESULT OUT OF RANGE REFERENCE UNITS LAB DHEAS(LOINC 80-560 mcg/dL ) DHEA-SO4 214 Performed By: #### TESTO, DHEAS #### [address] [address] #### ESTGEN #### [facility] [place] [address] [place], [place] [address] E2 Collected: 02/07/2018 Status: F Source: [facility] 4:46 PM [facility] REPOSITORY TYPE CODE TESTS RESULT OUT OF REFERENCE UNITS RANGE LAB E2(LOINC) 12-52 pg/mL Estradiol Level 29 Result Comment: Adult Female E2 Reference Ranges (09/16/11): Follicular phase 21 - 165 pg/mL Midcycle 50 - 367 pg/mL Luteal phase 40 - 259 pg/mL Post menopausal 11 - 58 pg/mL Performed By: #### E2, TESTO, DHEAS #### [place] [address] TESTO Collected: 02/07/2018 Status: F Source: [facility] 4:46 PM [facility] REPOSITORY TYPE CODE TESTS RESULT OUT OF REFERENCE UNITS RANGE LAB TESTO(LOIN 241.0-827.0 ng/dL C) Testosterone High Lvl 835.8 Performed By: #### E2, TESTO, DHEAS #### [place] [address] DHEAS Collected: 02/07/2018 Status: F Source: [facility] 4:46 PM [facility] REPOSITORY TYPE CODE TESTS RESULT OUT OF RANGE REFERENCE UNITS LAB DHEAS(LOINC 80-560 mcg/dL ) Low DHEA-SO4 35 Performed By: #### E2, TESTO, DHEAS #### [place] [address] CBC-COMPLETE BLOOD CNT Collected: 12/26/2017 Status: F Source: [place] NO DIFF 6:05 AM [facility] REPOSITORY TYPE CODE TESTS RESULT OUT OF RANGE REFERENCE UNITS LAB L100.1000 4.4-11.0 K/mm3 Normal WBC 4.9 LAB L100.1200 4.6-6.2 M/mm3 Low RBC 4.46 LAB L100.1300 13.0-16.5 g/dl Normal HGB 14.1 LAB L100.1400 40-54 % Low HCT 39.0 LAB L100.1500 80-94 fL Normal MCV 87.4 LAB L100.1600 27.0-32.0 pg Normal MCH 31.6 LAB L100.1700 32-36 g/gl High MCHC 36.2 LAB L100.1810 11.6-14.6 % Normal RDW CV 13.0 LAB L100.1820 35.1-43.9 fl Normal RDW SD 39.9 LAB L100.1900 150-450 K/mm3 Normal PLT 301 LAB L100.2000 6.2-12.0 fl Normal MPV 8.6 Performed By: #### L100.0500 #### [facility] [address] [place], [place], [id number] LIPID PROFILE Collected: 12/26/2017 Status: F Source: [place] 6:05 AM [facility] REPOSITORY TYPE CODE TESTS RESULT OUT OF RANGE REFERENCE UNITS LAB L501.4900 200 mg/dL Normal CHOL 149 Result Comment: <200 mg/dL Desirable 200-240 mg/dL Borderline >240 mg/dL High Risk LAB L501.5000 mg/dL Normal TRIG 140 Result Comment: The drugs N-Acetylcysteine and Metamizole may falsely depress this assay. Serum Triglycerides Reference Interval Normal <150 mg/dL Borderline high 150 - 199 mg/dL High 200 - 499 mg/dL Very High > or = 500 mg/dL LAB L501.6400 mg/dL Low HDL 39 Result Comment: The drugs N-Acetylcysteine and Metamizole may falsely depress this assay. Reference Range HDL <40 mg/dL Low HDL Cholesterol HDL >or= 60 mg/dL High HDL Cholesterol LAB L501.6500 0-130 mg/dL Normal LDL 82 LAB L501.6600 5-40 mg/dL Normal VLDL 28 Performed By: #### L500.4100, L501.0100, L501.9520, L501.9910, L3300.1750 #### [facility] [address] [place], [place], [id number] GLUCOSE Collected: 12/26/2017 Status: F Source: [place] 6:05 AM [facility] REPOSITORY TYPE CODE TESTS RESULT OUT OF RANGE REFERENCE UNITS LAB L501.0100 74-106 mg/dL Normal GLU 104 Result Comment: Fasting Glucose result from 100 to 125 mg/dL suggests IMPAIRED HOMEOSTASIS per A.D.A. criteria. Please note revised GLUCOSE reference range effective 2017. Performed By: #### L500.4100, L501.0100, L501.9520, L501.9910, L3300.1750 #### [facility] [address] [place], [address] THYROID STIM HORMONE Collected: 12/26/2017 Status: F Source: [place] (TSH) 6:05 AM [facility] REPOSITORY TYPE CODE TESTS RESULT OUT OF RANGE REFERENCE UNITS LAB L501.9520 0.358-3.74 uIU/mL Normal TSH 3.37 Performed By: #### L500.4100, L501.0100, L501.9520, L501.9910, L3300.1750 #### [facility] [address] [place], [address] PSA,TOTAL - ANNUAL Collected: 12/26/2017 Status: F Source: [place] SCREEN 6:05 AM [facility] REPOSITORY TYPE CODE TESTS RESULT OUT OF RANGE REFERENCE UNITS LAB L501.9910 0.00-4.00 ng/mL Normal PSA,TOT 0.77 SCREEN Result Comment: This test was performed using the TPSA assay method for the Socratic chemistry system. Values obtained with different assay methods cannot be used interchangably. When changing PSA assays in the course of monitoring a patient, additional sequential testing should be carried out to confirm baseline values. Performed By: #### L500.4100, L501.0100, L501.9520, L501.9910, L3300.1750 #### [facility] [address] [place], [address] ESTRADIOL Collected: 12/26/2017 Status: F Source: [place] 6:05 AM [facility] REPOSITORY TYPE CODE TESTS RESULT OUT OF RANGE REFERENCE UNITS LAB L3300.1750 pg/mL Normal ESTRADIOL 32.6 Result Comment: NORMAL REFERENCE RANGES FEMALE FOLLICULAR 21.4 - 164.8 pg/mL MID-CYCLE PEAK 49.9 - 367.2 pg/mL LUTEAL 40.2 - 259.0 pg/mL POST-MENOPAUSAL ON MHT <11.0 - 462.1 pg/mL NOT ON MHT <11.0 - 58.3 pg/mL MALE <11.0 - 52.5 pg/mL NOTE: [facility] HAS CONFIRMED THE DRUG FULVETRANT (FASLODEX) MAY CAUSE FALSELY ELEVATED ESTRADIOL RESULTS WHEN USING THIS TEST METHOD. IF PATIENT IS TAKING FULVESTRANT AN ALTERNATIVE METHOD SHOULD BE USED TO DETERMINE ESTRADIOL CONCENTRATION. Performed By: #### L500.4100, L501.0100, L501.9520, L501.9910, L3300.1750 #### [facility] [address] [place], [address] VITAMIN B12 Collected: 12/26/2017 Status: F Source: [place] 6:05 [facility] REPOSITORY TYPE CODE TESTS RESULT OUT OF RANGE REFERENCE UNITS LAB L503.0105 211-911 pg/mL Normal Vitamin B12 490 Performed By: #### L503.0105, L506.1000, L509.3000 #### [facility] [address] [place], [address] VITAMIN D,25 HYDROXY Collected: 12/26/2017 Status: F Source: [place] 6:05 [facility] REPOSITORY TYPE CODE TESTS RESULT OUT OF RANGE REFERENCE UNITS LAB L506.1000 29.95-100.01 ng/mL Normal Vitamin D 31.7 25-OH Result Comment: Vitamin D 25(OH) Status Range Deficiency <20 ng/mL (50nmol/L) Insuffciency 20 - 30 ng/mL (50 - 75 nmol/L) Sufficiency 30 - 100 ng/mL (75 - 250 nmol/L) Toxicity >100 ng/mL (>250 nmol/L) Performed By: #### L503.0105, L506.1000, L509.3000 #### [facility] [address] [place], [address] TESTOSTERONE, SERUM TOTAL Collected: 12/26/2017 Status: F Source: [place] 6:05 [facility] REPOSITORY TYPE CODE TESTS RESULT OUT OF REFERENCE UNITS RANGE LAB L509.3000 ng/dL Testosterone Normal 320.24 Result Comment: NORMAL REFERENCE RANGES MALE AGE <50 123.06 - 813.86 ng/dL MALE AGE >50 89.98 - 780.10 ng/dL FEMALE PREMENOPAUSE AGE 21 - 60 9.01 - 47.94 ng/dL FEMALE POSTMENOPAUSE AGE 45 - 89 <7.00 - 45.62 ng/dL REFERENCE RANGE AND METHODOLOGY CHANGED 08/30/2017 Performed By: #### L503.0105, L506.1000, L509.3000 #### [facility] [address] [place], [address] CBC W/DIFF, AUTOMATED Collected: 11/30/2017 Status: F Source: [place] 6:15 AM [facility] REPOSITORY TYPE CODE TESTS RESULT OUT OF RANGE REFERENCE UNITS LAB L100.1000 4.4-11.0 K/mm3 Low WBC 4.1 LAB L100.1200 4.6-6.2 M/mm3 Normal RBC 4.66 LAB L100.1300 13.0-16.5 g/dl Normal HGB 14.6 LAB L100.1400 40-54 % Normal HCT 40.6 LAB L100.1500 80-94 fL Normal MCV 87.1 LAB L100.1600 27.0-32.0 pg Normal MCH 31.3 LAB L100.1700 32-36 g/gl Normal MCHC 36.0 LAB L100.1810 11.6-14.6 % Normal RDW CV 12.9 LAB L100.1820 35.1-43.9 fl Normal RDW SD 39.9 LAB L100.1900 150-450 K/mm3 Normal PLT 260 LAB L100.2000 6.2-12.0 fl Normal MPV 8.5 LAB L100.2100 47-70 % Normal NEUT% 49.3 LAB L100.2200 19-41 % Normal LY% 31.2 LAB L100.2300 0-10 % High MONO% 12.2 LAB L100.2400 0-5 % High EO% 6.1 LAB L100.2500 0-1 % Normal BASO% 0.7 LAB L100.2550 0.0-0.9 % Normal IM GRAN % 0.500 Result Comment: IG% - Immature Granulocytes (promyelocytes, myelocytes and metamyelocytes) > 1% indicates that a LEFT SHIFT is Present. LAB L100.2620 2.0-7.7 X10 3/uL Normal Absolute Neut 2.0 LAB L100.2720 0.83-4.51 X10 3/ul Normal Absolute Lymph 1.28 Performed By: #### L100.0100 #### [facility] [place], [address] COMPREHENSIVE METABOLIC Collected: 11/30/2017 Status: F Source: [place] 6:15 AM [facility] REPOSITORY Order Comment: Comments: FIBRINOGEN ACTIVITY [id number] PLASMA/RT 24 HRS TYPE CODE TESTS RESULT OUT OF RANGE REFERENCE UNITS LAB L501.0100 74-106 mg/dL Normal GLU 106 Result Comment: Fasting Glucose result from 100 to 125 mg/dL suggests IMPAIRED HOMEOSTASIS per A.D.A. criteria. Please note revised GLUCOSE reference range effective 2017. LAB L501.1000 7-18 mg/dL Normal BUN 11 LAB L501.1100 0.70-1.30 mg/dL Normal CREAT,SERUM 0.72 Result Comment: The validity of the calculated GFR AND GFRAA in patients over 70 years has not been determined. Clinical correlation is essential. LAB L501.1110 >60 mL/min Normal EST GFR 120 Result Comment: Non- GFR Calc LAB L501.1115 >60 mL/min Normal EST GFR - AA 146 Result Comment: GFR Calc LAB L501.1300 10-20 RATIO Normal BUN/CRE 15.3 LAB L501.1500 6.4-8.2 g/dL T Normal PROT 7.3 LAB L501.1800 3.2-5.0 g/dL Normal ALB 4.0 LAB L501.1950 2.2-4.2 g/dL Normal GLOB 3.3 LAB L501.2000 0.9-2.4 RATIO Normal A/G 1.2 LAB L501.2200 8.5-10.1 mg/dL Low CA 8.2 LAB L501.4100 15-37 U/L Normal AST 25 Result Comment: Slight Hemolysis, Result may be falsely increased. LAB L501.4305 45-117 U/L Normal ALK P 49 LAB L501.4405 16-61 U/L Normal ALT 31 Result Comment: Please note revised ALT reference range effective 2017. LAB L501.4600 0.20-1.00 mg/dL Normal T BILI 0.70 LAB L501.5300 136-145 mmol/L Normal NA 141 LAB L501.5600 3.5-5.1 mmol/L Normal K 4.0 Result Comment: Slight Hemolysis, Result may be falsely increased. LAB L501.5900 98-107 mmol/L High CL 108 LAB L501.6100 21.0-32.0 mmol/L Normal CO2 27.0 LAB L501.6200 5-15 Normal 6 GAP Performed By: #### L500.4050, L500.4100 #### [facility] [address] [facility] [id number] LIPID PROFILE Collected: 11/30/2017 Status: F Source: [place] 6:15 AM [facility] REPOSITORY Order Comment: Comments: FIBRINOGEN ACTIVITY [id number] PLASMA/RT 24 HRS TYPE CODE TESTS RESULT OUT OF RANGE REFERENCE UNITS LAB L501.4900 200 mg/dL Normal CHOL 165 Result Comment: <200 mg/dL Desirable 200-240 mg/dL Borderline >240 mg/dL High Risk LAB L501.5000 mg/dL Normal TRIG 97 Result Comment: The drugs N-Acetylcysteine and Metamizole may falsely depress this assay. Serum Triglycerides Reference Interval Normal <150 mg/dL Borderline high 150 - 199 mg/dL High 200 - 499 mg/dL Very High > or = 500 mg/dL LAB L501.6400 mg/dL Normal HDL 43 Result Comment: The drugs N-Acetylcysteine and Metamizole may falsely depress this assay. Reference Range HDL <40 mg/dL Low HDL Cholesterol HDL >or= 60 mg/dL High HDL Cholesterol LAB L501.6500 0-130 mg/dL Normal LDL 103 LAB L501.6600 5-40 mg/dL Normal VLDL 19 Performed By: #### L500.4050, L500.4100 #### [facility] [address] [place], [address] HEMOGLOBIN A1C Collected: 11/30/2017 Status: F Source: [place] 6:15 AM [facility] REPOSITORY TYPE CODE TESTS RESULT OUT OF RANGE REFERENCE UNITS LAB L501.9985 4.2-6.3 % Normal HGB A1C 5.4 Performed By: #### L501.9985 #### [facility] [address] [place], [address] MISCELLANEOUS LAB Collected: 11/30/2017 Status: F Source: [place] PROCEDURE 3 6:15 AM [facility] REPOSITORY Order Comment: Comments: FIBRINOGEN ACTIVITY [id number] PLASMA/RT 24 HRS List Test(s) Ordered by Physician: FACTOR [id number] PLASMA/FZ TYPE CODE TESTS RESULT OUT OF RANGE REFERENCE UNITS LAB L801.1545 Normal [facility] LAB TEST 3 Result Comment: TEST RESULT UNIT REF INTERVAL Factor V Activity 100 % 70 - 150 Molecular testing for the presence of factor V Leiden is recommended when evaluating the patient for thrombotic risk. TESTING PERFORMED AT [facility]. ORIGINAL REPORT ON FILE IN LAB CONTAINS ADDITIONAL TEST SITE INFORMATION. Performed By: #### L801.1545 #### [facility] [address] [place], [address] LUPUS ANTICOAGULANT COMP Collected: 11/30/2017 Status: F Source: [place] 6:15 AM [facility] REPOSITORY TYPE CODE TESTS RESULT OUT OF REFERENCE UNITS RANGE LAB L4500.0125 0.0-55.0 sec DILUTE PT (dPT) Normal 38.3 LAB L4500.0150 0.00-1.40 Ratio dPT Conf. Ratio Normal 0.95 LAB L4500.0200 0.0-23.0 sec THROMBIN TIME Normal 22.0 LAB L4500.0600 0.0-51.9 sec PTT-LA Normal 36.3 LAB L4500.1000 0.0-47.0 sec DRVVT Normal 36.0 LAB L4500.1300 . Interpretation Normal Comment: Result Comment: No lupus anticoagulant was detected. Performed By: #### L4500.0100, L4600.0155 #### [facility] (refer to report for specific site) refer to report for address and phone number MTHFR DNA VARIANT Collected: 11/30/2017 Status: F Source: [place] 6:15 AM [facility] REPOSITORY TYPE CODE TESTS RESULT OUT OF RANGE REFERENCE UNITS LAB L4600.0205 . 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 The MTHFR [id number] variant was not identified. This combination of results is not associated with an increased risk of hyperhomocysteinemia, venous thrombosis, coronary artery disease, or recurrent loss. However, hyperhomocysteinemia may also occur due to mutations in enzymes other than MTHFR that are involved in homocysteine metabolism, or arise due to acquired factors. In evaluation of vascular and obstetric risk, consider measuring fasting homocysteine. Other risk factors may be detected through systematic clinical laboratory analysis. LAB L4600.0250 Normal COMMENT Result Comment: Methylenetetrahydrofolate reductase (MTHFR) is a gordon enzyme in the folate pathway and is responsible for the metabolism of homocysteine. There are two common variants in the MTHFR gene, c.655c>T (p.[id number]), referred to as C677T, and c.1286A>C (p.Cip343Gul), referred to as N0051G. Individuals homozygous for C677T (two copies of the variant), have decreased activity of the MTHFR enzyme and a predisposition to hyperhomocysteinemia, particularly when deficient in folate. Hyperhomocysteinemia is a risk factor for venous thrombosis and coronary artery disease and is associated with an increased risk of open neural tube defects. The C677T variant does not independently increase risk of these conditions in the absence of hyperhomocysteinemia. The U0763T variant is not associated with elevated homocysteine levels unless a C677T variant is also present; however, the clinical significance of heterozygosity for both C677T and D3439S is controversial. Population data suggest that these two variants are not present on the same chromosome, but rare exceptions have been reported of triple variant MTHFR genotypes (ie. homozygous for one variant and heterozygous for the other). Homozygosity for C677T has an estimated frequency of 10% to 15% in Caucasians and 25% in Hispanics. Additional information: Dietary folic acid, B6 and B12 supplementation has been suggested to lower homocysteine levels in some people. Folic acid supplementation has been shown to reduce the occurrence of neural tube defects. Genetic counselors are available for health care providers to discuss results at [phone]. Methodology: DNA analysis of the MTHFR gene was performed by PCR amplification followed by restriction analysis. The diagnostic sensitivity is >99% for both. Molecular-based testing is highly accurate, but as in any laboratory test, rare diagnostic errors may occur. All test results must be combined with clinical information for the most accurate interpretation. This test was developed and its performance characteristics determined by [employer]. It has not been cleared or approved by the Food and Drug Administration. References: Marie LD, Ramiro Q. Am J Epidemiol 2000; 151(9):862-877. Madonna MM, Nya JA. Arch Pathol Lab Med 2007; 131(6):872-884. Frosst P et al. Yesica Adriana 1995; 10(1):111-113. Hickey SE et al. Adriana Med 2013; 15(2):153-156. Allison C et al. Obstet Gynecol 2011; 118(3):730-740. Kenji B et al. Eur J Epidemiol 2013; 28(8):621-647. Hilary Langford, PhD, FACMG Michelle Lieberman, PhD, FACMG Fabiana Monterroso, PhD, FACMG Meeta Kam M.S., PhD, FACMG Chanel Schofield, PhD, FACMG Lucia Bundy, PhD, FACMG Jerrell Beard, PhD, FACMG Performed at: - [facility] [id number] Blood Bank Credit Clerk: Erik Mancera MD, Phone: [phone] Performed at: [facility] [address] [place], [place] [id number] Blood Bank Credit Clerk: Damian Khalil MD, Phone: [phone] Performed By: #### L4500.0100, L4600.0155 #### [facility] (refer to report for specific site) refer to report for address and phone number MISCELLANEOUS LAB Collected: 11/30/2017 Status: F Source: [place]O PROCEDURE 2 6:15 AM [facility] REPOSITORY Order Comment: Comments: FIBRINOGEN ACTIVITY [id number] PLASMA/RT 24 HRS List Test(s) Ordered by Physician: ANTITHROMBIM III [id number] PLASMA/FZ TYPE CODE TESTS RESULT OUT OF RANGE REFERENCE UNITS LAB L801.1543 Normal [facility] LAB TEST 2 Result Comment: TEST RESULT UNITS REF INTERVAL Antithrombin Activity 91 % 75 - 135 Direct Xa inhibitor anticoagulants such as rivaroxaban, apixaban and edoxaban will lead to spuriously elevated antithrombin activity levels possibly masking a deficiency. TESTING PERFORMED AT [facility]. ORIGINAL REPORT ON FILE IN LAB CONTAINS ADDITIONAL TEST SITE INFORMATION. Performed By: #### L801.1543 #### [facility] [address] [place], [address] [facility] Collected: 11/30/2017 Status: F Source: MAURO PROCEDURE 6:15 AM [facility] REPOSITORY Order Comment: Comments: FIBRINOGEN ACTIVITY [id number] PLASMA/RT 24 HRS Test(s) Ordered: ANTITHROMBIM III [id number] PLASMA/FZ TYPE CODE TESTS RESULT OUT OF RANGE REFERENCE UNITS LAB L801.1541 Normal [facility] LAB TEST Result Comment: TEST RESULT LIMITS Antithrombin Activity 91 % 75 - 135 Direct Xa inhibitor anticoagulants such as rivaroxaban, apixaban and edoxaban will lead to spuriously elevated antithrombin activity levels possibly masking a deficiency. TESTING PERFORMED AT [facility]. ORIGINAL REPORT ON FILE IN LAB CONTAINS ADDITIONAL TEST SITE INFORMATION. Performed By: #### L801.1541 #### [facility] [address] [place], [address] ALLERGIES ALLERGIES DATE TYPE / CODE NAME / CODE REACTION SEVERITY SOURCE 08/08/2018 Drug hydrocodone/ Nausea Unknown [facility] Allergy/4160 [id number](R Hospital 11351(SNOMED XNORM) Repository CT) 08/08/2018 Drug acetaminophe Nausea Unknown [facility] Allergy/4160 n/[id number] Hospital 23729(SNOMED (RXNORM) Repository CT) ENCOUNTERS ENCOUNTERS ADMIT/DISCHARGE ACCOUNT NUMBER ADMITTING ENCOUNTER LOCATION SOURCE CLASS 08/21/[id number] [facility] ding:RAD Repository 07/30/[id number] [facility] ding:MTLAB Repository 04/18/2018/04/18/[id number] ding:[facility] Repository 02/07/2018/02/08/[id number] ding:[facility] Repository 12/26/[id number] [facility] ding:LAB Repository 11/30/[id number] [facility] ding:LAB Repository PAYERS PAYERS ENCOUNTER GUARANTOR PAYER SUBSCRIBER SOURCE 08/21/2018 ANDRE [id number] Primary ANDRE JOHNSON: [place] Insurance:ANTHEMPolicy [id number] Number: [facility] [id number]: (447) [id number] Repository [phone] () Date:[id number] [address] [address]CE: 08/21/2018 Secondary NOT GIVENUNK [place] Insurance:SELF PAY [facility] Number: Effective Repository Date:2018-07-30 07/30/2018 ANDRE Maradiaga [id number] Primary ANDRE KENTDOB: [place] CEDAR [facility] [id number] Number: [facility] [id number]: [phone]) [id number] Repository [phone] (HP) Date:8306-24-77ET [facility] [id number] [place] [address] 90645HL: 07/30/2018 Secondary NOT GIVENUNK [place] Insurance:SELF PAY [facility] Number: Effective Repository Date:2018-07-30 04/18/2018 ANDRE YOLIB: Primary ANDRE KENTB: [place] [id number] Insurance:[employer] [id number] [place] [address] CEDAR Repository [place], [place] Number: [facility] [place] [place] [address]Hxc: [phone]) [id number]: (HP) Date:2018-04-18 [id number] (HP)Tel: (000) Name:[facility] FACUNDO [phone] () [address] [place] [address]NI: 02/07/2018 ANDRE YOLINELLI: Primary ANDRE KENTB: [facility] [id number] Insurance:[place] [id number] [place] [address] [facility]ST [facility] 8 [place] Number: [place] [id number]: (330) [id number]: (HP) Date:2018-02-07 [id number] (HP)Tel: (000) Name:[facility] 0000000 (WP) [address] [place] [address]LF: 12/26/2017 ANDRE [id number] Primary ANDRE KENTB: [place] Insurance:ANTHEMPolicy [id number] Number: [facility] [id number]: 330 [id number] Repository [phone] () Date:4059-38-60[place] [address] [place] [address]CA: 12/26/2017 Secondary NOT GIVENUNK [place] Insurance:SELF PAY [facility] Number: Effective Repository Date:2017-12-25 11/30/2017 Andre Kent1558 Primary Andre LeonB: [place] Insurance:ANTHEMPolicy [id number] [place] Number[facility] [id number]: 330 [id number] Repository [phone] () Date:[id number] [id number] [place] [address] 87883DQ: 11/30/2017 Secondary NOT GIVENUNK [place] Insurance:SELF PAY [facility] Number: Effective Repository Date:2017-11-30
== END ==
PROVIDERS: Family Provider Family Medicine; PCP Family Medicine; Referring Provider Family Medicine; Visit Provider Family Medicine
DX: R10.13 Epigastric pain (principal)
CPT/HCPCS: 74249

== ENCOUNTER → 2019-03-15 | Outpatient (CLI) | payer BC, SELFPAY ==
[2017-09-06 15:09] VITALS: BMI 30.3
[2019-03-15 10:22] LABS: Absolute Lymphocyte Count 1.24 X10^3/ul (0.83-4.51); Absolute Neutrophil Count 1.9 X10^3/uL (2.0-7.7); Basophil# 0.03 X10^3/uL; Basophil% 0.8 % (0-1); Eosinophils% 5.3 % (0-5); Hematocrit 41.9 % (40-54); Hemoglobin 14.7 g/dl (13.0-16.5); Lymphocyte # 1.24 X10^3/ul (4.0); Lymphocyte % 33.2 % (19-41); Mean Corp Hgb Conc 35.1 g/gl (32-36); Mean Corpuscular Hgb 31.2 pg (27.0-32.0); Mean Platelet Vol. 8.7 fl (6.2-12.0); Monocyte# 0.37 X10^3/uL; Monocyte% 9.9 % (0-10); Neutrophil # 1.89 X10^3/uL (2.7-7.7); Neutrophil % 50.5 % (47-70); Platelet Count 255 K/mm3 (150-450); RBC Distribution Width CV 12.8 % (11.6-14.6); RBC Distribution Width SD 41.5 fl (35.1-43.9); Red Blood Count 4.71 M/mm3 (4.6-6.2); White Blood Count 3.7 K/mm3 (4.4-11.0)
[2019-03-15 10:35] LABS: POSITIVE COUNT NO; POSITIVE DIFFERENTIAL NO; POSITIVE MORPHOLOGY NO
[2019-03-15 10:41] LABS: Hemoglobin A1c 5.8 % (4.2-6.3)
[2019-03-15 10:43] LABS: Color, Urine Yellow (Yellow); Glucose, Dipstick Normal (Normal); Ketone-Dipstick Negative (Negative); Leukocyte Esterase-Dipstick Negative /ul (Negative); Nitrite-Dipstick Negative (Negative); Occult Blood-Urine Negative /ul (Negative); Protein-Dipstick 15 mg/dl (Negative); Specific Gravity, Urine 1.025 (1.002-1.030); Urine Bilirubin Dipstick Negative (Negative); Urine Clarity Clear (Clear); Urine Urobilinogen Normal (Normal)
[2019-03-15 10:47] LABS: ALB/GLOB Ratio 1.1 RATIO (0.9-2.4); AST(SGOT) 27 U/L (15-37); Alanine Aminotransfer ALT/SGPT 38 U/L (16-61); Alkaline Phosphatase 53 U/L (45-117); Anion Gap 7 (5-15); BUN 15 mg/dL (7-18); Calcium,Total 8.5 mg/dL (8.5-10.1); Chloride 109 mmol/L (98-107); Cholesterol 171 mg/dL (200); Creatinine, Serum 0.88 mg/dL (0.70-1.30); EST Glomerular Filtration Rate 94 mL/min (>60); Est Glom Filt Rate - Afr Amer 114 mL/min (>60); Globulin 3.5 g/dL (2.2-4.2); Glucose 105 mg/dL (74-106); High Density Lipoprotein 40 mg/dL; PSA,Total- Diagnostic 0.97 ng/mL (0.0-4.0); Potassium 4.1 mmol/L (3.5-5.1); Protein, Total 7.5 g/dL (6.4-8.2); Sodium Level 142 mmol/L (136-145); Triglycerides 130 mg/dL; Very Low Density Lipoprotein 26 mg/dL (5-40)
[2019-03-15 11:20] LABS: Microalbumin,Random Urine 22.5 mg/L (NO RANGE EST.); Microalbumin:Creatinine Ratio 8.2 mg/g CRE (<30 mg/g CRE)
== END | disposition home or self-care (01) ==
LOC: MFPLAB 08:57
PROVIDERS: Family Provider Family Medicine; PCP Family Medicine; Visit Provider Family Medicine
DX: E88.81 Metabolic syndrome and other insulin resistance (principal); R39.11 Hesitancy of micturition; G25.81 Restless legs syndrome
CPT/HCPCS: 36415; 80053; 80061; 81002; 82043; 82570; 83036; 84153; 85025; 87086; 87088

== ENCOUNTER → 2020-05-28 08:57 | Outpatient (CLI) | payer BC, SELFPAY ==
[2020-05-28 09:03] LABS: Red Blood Cells-Urine 0 SEEN /hpf (0-5)
[2020-05-28 11:58] LABS: Color, Urine Yellow (Yellow); Glucose, Dipstick Normal (Normal); Ketone-Dipstick 5 mg/dl (Negative); Leukocyte Esterase-Dipstick 25 /ul (Negative); Nitrite-Dipstick Negative (Negative); Occult Blood-Urine Negative /ul (Negative); Protein-Dipstick 15 mg/dl (Negative); Urine Bilirubin Dipstick Negative (Negative); Urine Clarity Sl. Cloudy (Clear); Urine Urobilinogen Normal (Normal)
[2020-05-28 11:59] LABS: Absolute Lymphocyte Count 1.03 X10^3/uL (0.83-4.51); Basophil# 0.05 X10^3/uL; Basophil% 1.4 % (0-1); Eosinophil# 0.13 X10^3/uL; Eosinophils% 3.6 % (0-5); Hematocrit 40.3 % (40-54); Hemoglobin 13.7 g/dL (13.0-16.5); Lymphocyte # 1.03 X10^3/ul (4.0); Lymphocyte % 28.2 % (19-41); Mean Corpuscular Hgb 30.3 pg (27.0-32.0); Mean Corpuscular Volume 89.2 fL (80-94); Mean Platelet Vol. 8.7 fl (6.2-12.0); Monocyte# 0.43 X10^3/uL; Monocyte% 11.8 % (0-10); NRBC Flagged by Analyzer 0 % (0-5); Neutrophil # 1.99 X10^3/uL (2.7-7.7); Neutrophil % 54.5 % (47-70); Platelet Count 319 K/mm3 (150-450); RBC Distribution Width CV 12.8 % (11.6-14.6); RBC Distribution Width SD 41.9 fl (35.1-43.9); Red Blood Count 4.52 M/mm3 (4.6-6.2); White Blood Count 3.7 K/mm3 (4.4-11.0)
[2020-05-28 12:06] LABS: Bacteria 1+ /hpf (None Seen); Mucous, Urine 2+ /hpf (<or=2+); Squamous Epithelial Cells - UA 0-5 SEEN /hpf (0-5); White Blood Cells 0-5 SEEN /hpf (0-5)
[2020-05-28 12:15] LABS: Vitamin B12 1192 pg/mL (211-911)
[2020-05-28 12:20] LABS: Hemoglobin A1c 5.4 % (3.8-5.6)
[2020-05-28 12:38] LABS: ALB/GLOB Ratio 1.1 RATIO (0.9-2.4); AST(SGOT) 27 U/L (15-37); Alanine Aminotransfer ALT/SGPT 50 U/L (16-61); Albumin, Serum 3.9 g/dL (3.2-5.0); Alkaline Phosphatase 55 U/L (45-117); Anion Gap 8 (5-15); BUN 9 mg/dL (7-18); BUN/Creat Ratio 11.7 RATIO (10-20); Calcium,Total 8.6 mg/dL (8.5-10.1); Chloride 109 mmol/L (98-107); Cholesterol 140 mg/dL (200); Creatinine, Serum 0.77 mg/dL (0.70-1.30); EST Glomerular Filtration Rate 110 mL/min (>60); Est Glom Filt Rate - Afr Amer 133 mL/min (>60); Ferritin 340 ng/mL (26-388); Globulin 3.5 g/dL (2.2-4.2); Glucose 97 mg/dL (74-106); High Density Lipoprotein 36 mg/dL; Potassium 3.9 mmol/L (3.5-5.1); Protein, Total 7.4 g/dL (6.4-8.2); Sodium Level 143 mmol/L (136-145); T4 Free Direct 0.93 ng/dL (0.76-1.46); Thyroid Stim Hormone (TSH) 2.69 uIU/mL (0.358-3.74); Triglycerides 108 mg/dL; Very Low Density Lipoprotein 22 mg/dL (5-40)
[2020-05-29 16:58] LABS: ANTINUCLEAR ANTIBODIES DIRECT Negative (Negative)
[2020-06-02 16:09] LABS: Testosterone, % Free 2.62 % (1.50-4.20); Testosterone, Free 6.13 ng/dL (5.00-21.00)
[2020-06-03 05:08] LABS: Testosterone, Total 234 ng/dL (264-916); Transferrin 218 mg/dL (177-329)
== END ==
PROVIDERS: PCP Family Medicine; Visit Provider Family Medicine
DX: Z00.00 Encounter for general adult medical examination without abnormal findings (principal); R35.0 Frequency of micturition; R53.83 Other fatigue; R68.2 Dry mouth, unspecified; R23.2 Flushing
CPT/HCPCS: 36415; 80053; 80061; 81001; 82306; 82607; 82728; 83036; 84153; 84402; 84403; 84439; 84443; 84466; 85025; 86038; 86225; 86235; G0103

== ENCOUNTER → 2020-06-15 16:35 | Outpatient (CLI) | payer BC, SELFPAY ==
[2017-09-06 15:09] VITALS: BMI 30.3
[2020-06-19 14:09] LABS: Testosterone, Free 11.46 ng/dL (5.00-21.00)
[2020-06-19 16:33] LABS: Testosterone, % Free 3.87 % (1.50-4.20); Testosterone, Total 296 ng/dL (264-916)
== END ==
PROVIDERS: PCP Family Medicine; Referring Provider Family Medicine; Visit Provider Family Medicine
DX: E34.9 Endocrine disorder, unspecified (principal); E29.1 Testicular hypofunction
CPT/HCPCS: 36415; 84402; 84403

== ENCOUNTER → 2020-07-23 17:48 | Outpatient (CLI) | payer BC, SELFPAY | PROVIDERS: PCP Family Medicine; Referring Provider Family Medicine; Visit Provider Family Medicine | DX: Z11.59 Encounter for screening for other viral diseases (principal) | CPT/HCPCS: 87635; C9803; U0003 ==

== ENCOUNTER → 2021-06-12 09:26 | Outpatient (CLI) | payer BC, SELFPAY ==
[2021-06-12 10:02] LABS: Absolute Neutrophil Count 2.3 X10^3/uL (2.0-7.7); Basophil# 0.06 X10^3/uL; Basophil% 1.4 % (0-1); Eosinophils% 4.7 % (0-5); Hematocrit 41.8 % (40-54); Hemoglobin 14.9 g/dL (13.0-16.5); Lymphocyte % 28.2 % (19-41); Mean Corp Hgb Conc 35.6 g/dL (32-36); Mean Corpuscular Hgb 31.2 pg (27.0-32.0); Mean Corpuscular Volume 87.4 fL (80-94); Mean Platelet Vol. 8.4 fl (6.2-12.0); Monocyte# 0.44 X10^3/uL; Monocyte% 10.4 % (0-10); NRBC Flagged by Analyzer 0 % (0-5); Neutrophil # 2.34 X10^3/uL (2.7-7.7); Neutrophil % 55.1 % (47-70); Platelet Count 298 K/mm3 (150-450); RBC Distribution Width CV 12.7 % (11.6-14.6); RBC Distribution Width SD 40.6 fl (35.1-43.9); Red Blood Count 4.78 M/mm3 (4.6-6.2); White Blood Count 4.3 K/mm3 (4.4-11.0)
[2021-06-12 10:38] LABS: ALB/GLOB Ratio 1.1 RATIO (0.9-2.4); AST(SGOT) 23 U/L (15-37); Alanine Aminotransfer ALT/SGPT 44 U/L (16-61); Alkaline Phosphatase 53 U/L (45-117); Anion Gap 6 (5-15); BUN 14 mg/dL (7-18); BUN/Creat Ratio 16.8 RATIO (10-20); Calcium,Total 9.1 mg/dL (8.5-10.1); Chloride 107 mmol/L (98-107); Cholesterol 180 mg/dL (200); Creatinine, Serum 0.83 mg/dL (0.70-1.30); EST Glomerular Filtration Rate 100 mL/min (>60); Est Glom Filt Rate - Afr Amer 121 mL/min (>60); Globulin 3.6 g/dL (2.2-4.2); Glucose 104 mg/dL (74-106); High Density Lipoprotein 44 mg/dL; PSA,Total - Annual Screen 0.92 ng/mL (0.00-4.00); Potassium 4.1 mmol/L (3.5-5.1); Protein, Total 7.6 g/dL (6.4-8.2); Sodium Level 141 mmol/L (136-145); Triglycerides 121 mg/dL; Very Low Density Lipoprotein 24 mg/dL (5-40)
[2021-06-14 08:34] LABS: Vitamin D,25 Hydroxy 70.6 ng/mL
[2021-06-19 10:09] LABS: Testosterone Free 6.9 pg/mL (6.6-18.1)
== END ==
PROVIDERS: PCP Family Medicine; Referring Provider Family Medicine; Visit Provider Family Medicine
DX: Z00.00 Encounter for general adult medical examination without abnormal findings (principal); E29.1 Testicular hypofunction; E55.9 Vitamin D deficiency, unspecified; Z12.5 Encounter for screening for malignant neoplasm of prostate
CPT/HCPCS: 36415; 80053; 80061; 82306; 84153; 84402; 84403; 85025; G0103

== ENCOUNTER 2021-10-18 09:32 | Outpatient (CLI) | payer BC, SELFPAY ==
--- NOTE | 2021-10-18 09:43 | STE_ITS ---
Reason For Study: CHEST PAIN, FAMILY HX Stress Results Protocol: Ar Protocol Maximum Predicted HR: 160 bpm Target HR: 136 bpm % Maximum Predicted HR: 93 % DurationHeart Rate Stage (mm:ss) (bpm) BP Comment BASELINE 82 128/82 STAGE 1 3:00 114 120/62 STAGE 2 3:00 133 160/78 STAGE 3 3:00 148 160/60NO CHEST PAIN RECOVERY 114 130/88 Stress Duration: 9:00 mm:ss Maximum Stress HR: 148 bpm Baseline Echocardiogram Findings Stress Echo Wall motion Data Resting WM Intermediate WM Stress WM ECHO/Stress Test Echo w/o Contrast Interpretation Summary Exercise stress echo. Resting EKG demonstrates normal sinus rhythm with a rate of 82 bpm normal inter vals are noted resting blood pressure is 128/82 mmHg. The patient exercised according to regul ar Ar protocol for total duration of 9 minutes completing stage III of the Ar protocol. The max imum heart rate attained was 153 bpm which was 95% of max impact at heart rate the maximum work load was 10.1 metabolic equivalents. The patient maintained sinus rhythm throughout the recor ding. At rest there were no ST or T wave changes noted to suggest ischemia and at peak exercise ups loping ST changes were noted with did not meet the criteria for ischemia. No clinical angina was noted the test was terminated due to target heart rate being achieved. The peak blood pressure was 160/78 mmHg which was a good blood pressure response to exercise. Stress echocardiogram. The resting echocardiographic evaluation demonstrated pr eserved left ventricular systolic function estimated at 63%. No wall motion abnormalities we re noted at rest. At peak exercise there was thickening of all del toro and contraction and reduction o f low ventricular cavity size with a peak ejection fraction of 70%. No new wall motion abnormalit ies were noted to suggest ischemia. Conclusion: Exercise stress echocardiogram with no EKG criteria for ischemia at a high work load. Normal resting and stress echocardiographic images. Excellent functional capacity. Ordering Physician: Jimenez James Referring Physician: Jimenez James Performed By: Kita Shaikh, RDCS, RVT
== END 2021-10-18 23:59 | disposition home or self-care (01) ==
PROVIDERS: PCP Family Medicine; Referring Provider Family Medicine; Visit Provider Family Medicine
DX: R07.9 Chest pain, unspecified (principal)
CPT/HCPCS: 93017; 93350

== ENCOUNTER → 2022-07-09 | Outpatient (CLI) | payer BC, SELFPAY ==
[2022-07-09 16:46] LABS: ALB/GLOB Ratio 1.2 RATIO (0.9-2.4); AST(SGOT) 25 U/L (15-37); Alanine Aminotransfer ALT/SGPT 36 U/L (16-61); Albumin, Serum 3.8 g/dL (3.2-5.0); Alkaline Phosphatase 52 U/L (45-117); Anion Gap 5 (5-15); BUN 11 mg/dL (7-18); BUN/Creat Ratio 12.2 RATIO (10-20); Calcium,Total 8.6 mg/dL (8.5-10.1); Chloride 107 mmol/L (98-107); Cholesterol 152 mg/dL (200); EST Glomerular Filtration Rate 91 mL/min (>60); Est Glom Filt Rate - Afr Amer 110 mL/min (>60); Globulin 3.2 g/dL (2.2-4.2); Glucose 105 mg/dL (74-106); High Density Lipoprotein 41 mg/dL; Potassium 3.9 mmol/L (3.5-5.1); Sodium Level 140 mmol/L (136-145); Triglycerides 112 mg/dL; Very Low Density Lipoprotein 22 mg/dL (5-40)
== END | disposition home or self-care (01) ==
LOC: LAB 09:11
PROVIDERS: PCP Family Medicine; Visit Provider Family Medicine
DX: Z00.00 Encounter for general adult medical examination without abnormal findings (principal)
CPT/HCPCS: 36415; 80053; 80061

== ENCOUNTER → 2023-03-14 | Outpatient (CLI) | payer BC, SELFPAY ==
[2023-03-14 08:57] LABS: Absolute Lymphocyte Count 1.44 X10^3/uL (0.83-4.51); Absolute Neutrophil Count 2.5 X10^3/uL (2.0-7.7); Basophil# 0.04 X10^3/uL; Basophil% 0.8 % (0-1); Eosinophil# 0.16 X10^3/uL; Eosinophils% 3.4 % (0-5); Hematocrit 39.6 % (40-54); Hemoglobin 14.4 g/dL (13.0-16.5); Lymphocyte # 1.44 X10^3/ul (0.83-4.51); Lymphocyte % 30.4 % (19-41); Mean Corp Hgb Conc 36.4 g/dL (32-36); Mean Corpuscular Hgb 31.7 pg (27.0-32.0); Mean Corpuscular Volume 87.2 fL (80-94); Mean Platelet Vol. 7.9 fl (6.2-12.0); Monocyte# 0.59 X10^3/uL; Monocyte% 12.5 % (0-10); NRBC Flagged by Analyzer 0 % (0-5); Neutrophil # 2.49 X10^3/uL (2.7-7.7); Neutrophil % 52.7 % (47-70); Platelet Count 251 K/mm3 (150-450); RBC Distribution Width CV 12.8 % (11.6-14.6); RBC Distribution Width SD 40.3 fl (35.1-43.9); Red Blood Count 4.54 M/mm3 (4.6-6.2); White Blood Count 4.7 K/mm3 (4.4-11.0)
[2023-03-14 09:50] LABS: ALB/GLOB Ratio 1.1 RATIO (0.9-2.4); AST(SGOT) 26 U/L (15-37); Alanine Aminotransfer ALT/SGPT 37 U/L (16-61); Albumin, Serum 3.9 g/dL (3.2-5.0); Alkaline Phosphatase 50 U/L (45-117); Anion Gap 4 (5-15); BUN 15 mg/dL (7-18); BUN/Creat Ratio 17.4 RATIO (10-20); Calcium,Total 8.9 mg/dL (8.5-10.1); Chloride 111 mmol/L (98-107); Cholesterol 158 mg/dL (200); Creatinine, Serum 0.86 mg/dL (0.70-1.30); EST Glomerular Filtration Rate 96 mL/min (>60); Est Glom Filt Rate - Afr Amer 116 mL/min (>60); Globulin 3.4 g/dL (2.2-4.2); Glucose 101 mg/dL (74-106); High Density Lipoprotein 39 mg/dL; PSA,Total - Annual Screen 0.91 ng/mL (0.00-4.00); Potassium 3.6 mmol/L (3.5-5.1); Protein, Total 7.3 g/dL (6.4-8.2); Sodium Level 141 mmol/L (136-145); Triglycerides 69 mg/dL; Very Low Density Lipoprotein 14 mg/dL (5-40)
[2023-03-14 09:54] LABS: Hemoglobin A1c 5.5 % (3.8-5.6)
== END | disposition home or self-care (01) ==
LOC: LAB 08:40
PROVIDERS: PCP Family Medicine; Referring Provider Family Medicine; Visit Provider Family Medicine
DX: Z00.00 Encounter for general adult medical examination without abnormal findings (principal); Z12.5 Encounter for screening for malignant neoplasm of prostate
CPT/HCPCS: 36415; 80053; 80061; 83036; 84153; 85025; G0103

== ENCOUNTER 2023-09-28 17:30 | Outpatient (RCR) | payer BC, SELFPAY ==
--- NOTE | 2023-08-08 18:48 | HP.PTEVAL ---
Patient's Visit Information Visit Information Visit Information: ANDRE KENT is a 63 year old M referred to Physical Therapy by Dr. Andre James DO with a diagnosis of L arm pain. Date of Evaluation: 08/08/23 Physical Therapist: Car Vee, CONSTANZAT, OCS, CSCS Visit Plan Frequency: 2-3x /Week Duration: 4-6 Weeks Plan: 2-3x/week for 4 weeks for 1. US nonthermal to L supraspinatus tendon. 2. manual therapy for grade 1-2 mobs and PROM L UE 3. strength posture, scap and RC L to HEP 4. ice adn tens as needed Emphasize education on posture and hammer theory Subjective Subjective: L shoulder arm has bothered him most of his life. Limited horiz adduction. Hurts shoulder and lateral upper arm hurt last month worse than usual. May be because of moving an umbrella in the spring. Has been worse since March. B hands sleep sometimes. Achiness toothache in R arm daily intermittently. Worse in the evening sitting in the chair. Sleep is interupted int hat rolling on it hurts and it aches. R handed. Turning right with left arm in semi is tough. Not noticing weakness. 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 No better on off days. Basic ADLs are getting done but it aches. Hobbies include riding motorcycle and it was painful to ride after a while. Pain L arm/shoulder: Pain Intensity (Out of 10): 1 Pain Intensity Range: 0 and 9 Comment: last week almost went to ER Objective Objective: Posture is forward head minimally and protracted scap minimally. Tender to paklpation in soft tissue of supraspinatus and subscap. Not elsewhere. cervical aROM WFL at 55 rot and 50 extension without pain. scap AROM limited in depression and retraction slightly. UE AROM is WFL and symmetrical but elevation and er cause pain L shoulder. PROM much less painful in these movement. reflexes 2/3 B bi and tri sensation UE WNL to gross light touch Strength in shoulders and elbows and wrists and thumb is 4+ but ext rotation L and flexion/abduction L is painful. + empty can test - external rotation lag test - labral tests - drop arm test - sulcus test. - apprehension test Balance/Special Test Scores Quick DASH Score: 70.4525 Goals Goal 1:: Painfree at rest consistently Goal Time Frame: 4-6 Weeks Goal 2:: sleep without waking at night due to pain Goal Time Frame: 4-6 Weeks Goal 3:: Full aROM L UE without pain Goal Time Frame: 4-6 Weeks Goal 4:: patient able to drive truck and feel 75% better overall Goal Time Frame: 4-6 Weeks Goal 5:: I HEP to minimize future problems Goal Time Frame: 4-6 Weeks Goal 6:: quickdash score 15 or better Goal Time Frame: 4-6 Weeks Rehabilitation Potential Physical Therapy Diagnosis: pain in L shoulder limiting function, likely impingement tendonitis Rehabilitation Potential: Fair Anticipated Interventions Patient/Client Instruction: Educate patient on: Condition and Plan of Care For the Purpose of:: To decrease pain, To improve nutrient delivery to tissue, To increase oxygenation perfusion and To increase tolerance to activity/condition/position Therapeutic Exercise to Include: Strength training, Postural training, Flexibilty training, Passive ROM, Active ROM and Scapular Strength/Stabilization For the Purpose of:: To decrease pain, To increase ROM, To improve nutrient delivery to tissue, To improve muscle performance and motor function and To increase tolerance to activity/condition/position Manual Therapy Techniques to Include: Mobilization, Passive ROM and Soft tissue mobilization For the Purpose of:: To decrease pain, To increase ROM, To improve nutrient delivery to tissue and To improve muscle performance and motor function TENS: Yes Cryotherapy (ice pack, ice massage): Yes Ultrasound (thermal/non thermal): Yes (nonthermal) For the Purpose of:: To decrease pain, To decrease swelling/inflammation and To improve nutrient delivery to tissue Text: Thank you for the opportunity to evaluate your patient. For Medicare and Medicare HMO plans, please review the plan of care and approve it. It will need to be FAXED BACK to us at [phone] for Medicare purposes. For Medicare only, by signing this I certify the plan of care. Please let me know if there are questions or concerns regarding this plan of care. Physician Signature: Date:
--- NOTE | 2023-11-27 10:12 | HP.PT.NRP ---
Patient Information Patient Information: ANDRE KENT was seen in my office for initial evaluation on 08/08/23. The following Plan of Care was established for this patient: POC Established Initial Frequency: 2-3x /Week Initial Duration: 4-6 Weeks Anticipated Interventions Patient/Client Instruction: Educate patient on: Condition and Plan of Care For the Purpose of:: To decrease pain, To improve nutrient delivery to tissue, To increase oxygenation perfusion and To increase tolerance to activity/condition/position Therapeutic Exercise to Include: Strength training, Postural training, Flexibilty training, Passive ROM, Active ROM and Scapular Strength/Stabilization For the Purpose of:: To decrease pain, To increase ROM, To improve nutrient delivery to tissue, To improve muscle performance and motor function and To increase tolerance to activity/condition/position Manual Therapy Techniques to Include: Mobilization, Passive ROM and Soft tissue mobilization For the Purpose of:: To decrease pain, To increase ROM, To improve nutrient delivery to tissue and To improve muscle performance and motor function TENS: Yes Cryotherapy (ice pack, ice massage): Yes Ultrasound (thermal/non thermal): Yes (nonthermal) For the Purpose of:: To decrease pain, To decrease swelling/inflammation and To improve nutrient delivery to tissue Last Seen Last Seen: This patient was last seen in our office 09/28/23. Pertinent comments regarding their Physical therapy will appear below: Pt seen 3 visits of POC and did not schedule or attend any further visits. At this point, it has been over two months and I will discontinue from my care. At this point I will be discontinuing this patient from physical therapy. I would be happy to see this patient again in the future if found appropriate by the physician. Thank you! Car Vee, DPT, OCS, CSCS Balance/Gait/Functional tests Balance/Special Test Scores Quick DASH Score: 70.4591
== END 2023-09-28 19:00 | disposition home or self-care (01) ==
LOC: PT 17:30
PROVIDERS: PCP Family Medicine; Referring Provider Family Medicine; Visit Provider Family Medicine
DX: M79.602 Pain in left arm (principal)
CPT/HCPCS: 97035; 97110; 97140; 97161

== ENCOUNTER → 2024-03-15 | Outpatient (CLI) | payer BC, SELFPAY ==
[2024-03-15 12:09] LABS: Absolute Lymphocyte Count 1.03 X10^3/uL (0.83-4.51); Absolute Neutrophil Count 2.4 X10^3/uL (2.0-7.7); Basophil# 0.05 X10^3/uL; Basophil% 1.2 % (0-1); Eosinophil# 0.25 X10^3/uL; Eosinophils% 6.2 % (0-5); Hematocrit 41.2 % (40-54); Hemoglobin 14.1 g/dL (13.0-16.5); Lymphocyte # 1.03 X10^3/ul (0.83-4.51); Lymphocyte % 25.5 % (19-41); Mean Corp Hgb Conc 34.2 g/dL (32-36); Mean Corpuscular Hgb 30.3 pg (27.0-32.0); Mean Corpuscular Volume 88.4 fL (80-94); Mean Platelet Vol. 8.7 fl (6.2-12.0); Monocyte# 0.33 X10^3/uL; Monocyte% 8.2 % (0-10); NRBC Flagged by Analyzer 0 % (0-5); Neutrophil # 2.37 X10^3/uL (2.7-7.7); Neutrophil % 58.7 % (47-70); Platelet Count 305 K/mm3 (150-450); RBC Distribution Width CV 12.7 % (11.6-14.6); Red Blood Count 4.66 M/mm3 (4.6-6.2)
[2024-03-15 12:51] LABS: ALB/GLOB Ratio 1.2 RATIO (0.9-2.4); AST(SGOT) 21 U/L (15-37); Alanine Aminotransfer ALT/SGPT 34 U/L (16-61); Alkaline Phosphatase 57 U/L (45-117); Anion Gap 7 (5-15); BUN 12 mg/dL (7-18); BUN/Creat Ratio 13.5 RATIO (10-20); Calcium,Total 9.2 mg/dL (8.5-10.1); Chloride 108 mmol/L (98-107); Cholesterol 142 mg/dL (200); Creatinine, Serum 0.89 mg/dL (0.70-1.30); EST Glomerular Filtration Rate 92 mL/min (>60); Est Glom Filt Rate - Afr Amer 111 mL/min (>60); Globulin 3.4 g/dL (2.2-4.2); Glucose 105 mg/dL (74-106); High Density Lipoprotein 49 mg/dL; PSA,Total - Annual Screen 0.87 ng/mL (0.00-4.00); Potassium 3.9 mmol/L (3.5-5.1); Protein, Total 7.4 g/dL (6.4-8.2); Sodium Level 141 mmol/L (136-145); Triglycerides 55 mg/dL; Very Low Density Lipoprotein 11 mg/dL (5-40)
== END | disposition home or self-care (01) ==
LOC: MTLAB 10:25
PROVIDERS: PCP Family Medicine; Referring Provider Nurse Practitioner Family; Visit Provider Nurse Practitioner Family
DX: Z00.01 Encounter for general adult medical examination with abnormal findings (principal); Z12.5 Encounter for screening for malignant neoplasm of prostate
CPT/HCPCS: 36415; 80053; 80061; 84153; 85025; G0103

== ENCOUNTER 2024-03-16 18:26 | Emergency (ER) | payer BC, SELFPAY ==
[2024-03-16 18:27] VITALS: BP 145/87; PULSE 96; RESP 18; TEMP 36.1; O2SAT 99; BMI 28.0
--- NOTE | 2024-03-16 18:36 | EX.ED.GENINJ ---
HPI <RAMAN Ho - Last Filed: 03/16/24 19:20> History of Present Illness Chief Complaint: Laceration Narrative Narrative: 64-year-old vujro-ihqm-zoxhtskb male was using a utility knife and lacerated his left thumb. There is a skin flap that was bleeding that stopped with direct pressure. He has no weakness numbness or tingling. Last tetanus unknown. PFSH <RAMAN Ho - Last Filed: 03/16/24 19:20> PFSH Medical History Benign parotid tumor Restless leg syndrome Stomach ulcer GERD (gastroesophageal reflux disease) Home Medications ?Medication ?Instructions ?Recorded ?Last Taken ?Type Protonix 1 tab PO DAILY GERD 08/20/16 08/24/17 History ropinirole 0.25 mg tablet 0.25 mg PO QHS Restless Leg 08/25/17 08/24/17 History escitalopram oxalate 10 mg tablet 10 mg PO QDAY 09/06/17 Unknown History sucralfate 1 gram tablet (Carafate) 1 g PO ONCE 09/06/17 Unknown History sucralfate 100 mg/mL oral 1 g (10 mL) PO Q6H #420 mL 09/15/17 Unknown Rx suspension (Carafate) Allergy/AdvReac Type Severity Reaction Status Date / Time acetaminophen (From Vicodin) AdvReac Nausea Verified 03/16/24 18:27 hydrocodone (From Vicodin) AdvReac Nausea Verified 03/16/24 18:27 Family History Father Diabetes Heart disease Hypertension CAD (coronary artery disease) Surgical History H/O esophagogastroduodenoscopy History of colonoscopy History of appendectomy History of left knee surgery Social History (Updated 03/16/24 @ 18:49 by Yanna Whiteside) household members: spouse housing: house Smoking Status: Light Smoker (<10/day) alcohol intake: current alcohol intake frequency: holidays/special occasions only substance use type: does not use ROS <RAMAN Ho - Last Filed: 03/16/24 19:20> ROS ED ROS Narrative Neuro: Negative for motor/sensory dysfunction. Skin: Positive for wound. Musc: Negative for joint pain. EXAM <RAMAN Ho - Last Filed: 03/16/24 19:20> Physical Exam Narrative Exam Narrative: CONST: Patient sitting in no acute distress. EYES: Normal inspection. SKIN: 3 cm skin flap laceration on left thumb pad, flap is in place with normal coloration, no gaping or active bleeding. No nail laceration, no subungual hematoma, brisk cap refill. EXTREMITIES: Normal appearance, full ROM left thumb. NEURO: Alert and answering questions appropriately. PSYCH: Normal affect. Const Vital Signs: 03/16/24 18:27 Temperature 97 F L Temperature Source Temporal Pulse Rate 96 Respiratory Rate 18 Blood Pressure 145/87 H Blood Pressure Mean 106 Pulse Ox 99 Oxygen Delivery Method Room Air <Dr. Thee Chavez MD - Last Filed: 03/16/24 18:42> Physical Exam Const Vital Signs: 03/16/24 18:27 Temperature 97 F L Temperature Source Temporal Pulse Rate 96 Respiratory Rate 18 Blood Pressure 145/87 H Blood Pressure Mean 106 Pulse Ox 99 Oxygen Delivery Method Room Air PROC <RAMAN Ho - Last Filed: 03/16/24 19:20> Procedures Lacerations left thumb: Length: 3 cm Depth: Skin Shape: Flap Prep: Sterile Conditions and Shure-Clens Laceration repair: Irrigated, Lidocaine and Local Irrigated (ml): 100 Number of Sutures/Beecher: 3 Suture Information: Ethilon and 5-0 MDM <RAMAN Ho - Last Filed: 03/16/24 19:20> [facility] MDM Narrative Medical decision making narrative: Patient is a 3 cm left thumb flap laceration. The flap is superficial layers no tendon or osseous involvement. Extremity is neurovascularly intact. Flap was tacked down with 3 simple interrupted sutures of 5-0 Ethilon. He tolerated procedure well. Tetanus was updated. He was discharged in stable condition. <Dr. Thee Chavez MD - Last Filed: 03/16/24 18:42> [facility] Treatment and Re-Evaluation Narrative: I have personally performed a face to face assessment of the patient and have reviewed the BLAYNE Note. I performed a substantive portion of the visit including all aspects of the following. My gordon findings include: History is shabq-ofbd-fscwffok male accidentally cut left thumb using a utility knife. No anticoagulants. Exam is flap shaped 2.5 cm laceration to the ulnar aspect of the left thumb. Full range of motion no bony tenderness, clearly cut at an angle and no bone exposed. Nail uninjured. Medical Decison Making repair and update tetanus. I supervised the repair. Other additions or changes: [None] Discharge Plan Triage Chief Complaint: Laceration ED Midlevel Provider: Lyn Velazco ED Provider: Thee Chavez Dx/Rx/DC Orders Clinical Impression: Laceration of left thumb Instructions: ED Laceration Extremity Prescriptions: No Action escitalopram oxalate 10 mg tablet 10 mg PO QDAY sucralfate [Carafate] 1 gram tablet 1 g PO ONCE sucralfate [Carafate] 100 mg/mL suspension 1 g PO Q6H Qty: 420 0RF Protonix 1 tab PO DAILY ropinirole 0.25 MG tablet 0.25 mg PO QHS Primary Care Provider: Jimenez James Referrals: Jimenez James DO [Primary Care Provider] - Activity Restrictions/Additional Instructions: Stitches need removed in 7 days. Return sooner if any signs of infection develop like redness, swelling, pus, or fever. Print Language: [place] Citizen Disposition Disposition: Home, Self Care
[2024-03-16] MEDS: Diphth,Pertuss(Acell),Tet Vac 0.5 ML Vial IM (18:46)
[2024-03-16 19:57] VITALS: RESP 16
== END 2024-03-16 19:58 | disposition home or self-care (01) ==
PROVIDERS: Emergency Provider Emergency Medicine; PCP Family Medicine; Visit Provider Emergency Medicine
DX: S61.012A Laceration without foreign body of left thumb without damage to nail, initial encounter (principal); F17.200 Nicotine dependence, unspecified, uncomplicated; K21.9 Gastro-esophageal reflux disease without esophagitis; Z79.899 Other long term (current) drug therapy; W26.0XXA Contact with knife, initial encounter
CPT/HCPCS: 12002; 90715; 99283

== ENCOUNTER 2024-04-06 11:30 | Emergency (ER) | payer BC, SELFPAY ==
[2024-04-06 11:32] VITALS: BP 126/66; PULSE 100; RESP 16; TEMP 37.2; O2SAT 95; BMI 28.8
--- NOTE | 2024-04-06 11:39 | RAD_ITS ---
STUDY: X-RAY - RIGHT KNEE REASON FOR EXAM: Male, 64 years old. Injury TECHNIQUE: 2 view(s) of the knee. COMPARISON: None. FINDINGS: There is a comminuted fracture of the proximal tibia. The remainder the visualized osseous structures are intact. There is no dislocation. There are degenerative changes noted in the knee. There are no radiodense foreign bodies. RAD/Knee 1 or 2 Views IMPRESSION: Comminuted fracture of the proximal tibia. Electronically Signed: Jori Le MD at 12:07 EDT ,
--- NOTE | 2024-04-06 11:42 | EX.ED.DYSGE1 ---
HPI <WENDY Noyola - Last Filed: 04/06/24 14:21> History of Present Illness Chief Complaint: Lower Extremity Injury Narrative Narrative: Patient is a 64-year-old male with no significant medical history presents to the emergency department the right lower leg injury. Tetanus vaccination up-to-date 2 weeks ago. He was using a portable table saw in his driveway when a piece of wood shot out of the table saw striking him in the lower leg just below the knee. Patient was knocked to the ground, when he went to get up, he felt unsteadiness on his leg and he laid back down. Arrives by EMS. Denies any numbness or tingling to his foot, is able to move his toes. However he is unable to bend his knee, unable to weight-bear. Denies any other injuries. [facility] <WENDY Noyola - Last Filed: 04/06/24 14:21> [facility] Medical History (Updated 04/06/24 @ 13:59 by WENDY Noyola) Benign parotid tumor Restless leg syndrome Stomach ulcer GERD (gastroesophageal reflux disease) Home Medications ?Medication ?Instructions ?Recorded ?Last Taken ?Type Protonix 1 tab PO DAILY GERD 08/20/16 08/24/17 History ropinirole 0.25 mg tablet 0.25 mg PO QHS Restless Leg 08/25/17 08/24/17 History escitalopram oxalate 10 mg tablet 10 mg PO QDAY 09/06/17 Unknown History sucralfate 1 gram tablet (Carafate) 1 g PO ONCE 09/06/17 Unknown History sucralfate 100 mg/mL oral 1 g (10 mL) PO Q6H #420 mL 09/15/17 Unknown Rx suspension (Carafate) Allergy/AdvReac Type Severity Reaction Status Date / Time acetaminophen (From Vicodin) AdvReac Nausea Verified 04/06/24 11:32 hydrocodone (From Vicodin) AdvReac Nausea Verified 04/06/24 11:32 Family History Father Diabetes Heart disease Hypertension CAD (coronary artery disease) Surgical History H/O esophagogastroduodenoscopy History of colonoscopy History of appendectomy History of left knee surgery Social History (Updated 03/16/24 @ 18:49 by Yanna Whiteside) household members: spouse housing: house Smoking Status: Light Smoker (<10/day) alcohol intake: current alcohol intake frequency: holidays/special occasions only substance use type: does not use ROS <WENDY Noyola - Last Filed: 04/06/24 14:21> ROS ED ROS Narrative Constitutional: Negative for fever, chills, weight loss, weakness Eyes: Negative for vision loss, vision change, double vision ENT: Negative for any sore throat, ear pain, congestion Cardiovascular: Negative for any chest pain, tightness, palpitations Respiratory: Negative for any cough, sputum production, hemoptysis, dyspnea, dyspnea on exertion, orthopnea Gastrointestinal: Negative for any abdominal pain, nausea, vomiting, diarrhea, constipation, blood in stool, blood in vomit : Negative for any urinary frequency, dysuria, retention, blood in urine Muscle skeletal: Negative for any neck pain, back pain. Positive for right lower leg deformity, right lower leg pain Neurological: Negative for any headache, syncope, dizziness Skin: Negative for any rashes, itching, abrasions, lacerations Psychiatric: Negative for any depression, anxiety, stress, suicidal ideation, homicidal ideation Hematologic: Negative for any excessive bruising, easy bleeding EXAM <WENDY Noyola - Last Filed: 04/06/24 14:21> Physical Exam Narrative Exam Narrative: Vital signs reviewed. HEET: Head normocephalic atraumatic, TMs clear bilaterally. Posterior pharynx is clear, moist mucous membranes. Nares clear bilaterally. Neck: Supple with no lymphadenopathy or tenderness. No signs of meningismus. Cardiac: Regular rate and rhythm no murmurs gallops or rubs, equal peripheral pulses bilaterally. Respiratory: Lungs clear to auscultation bilaterally. No chest tenderness. Abdomen: Soft, nontender, nondistended. No abdominal bruit or pulsatile masses. No hepatosplenomegaly Extremities: Patient has obvious deformity, abrasion to the proximal tibia. Patient is unable to flex his knee. He was unable to lift up his leg secondary to pain. +2 pedal pulse. Able to move his toes. Patient does have hematoma going down the anterior tibia with a an abrasion. Neuro: Cranial nerves II through XII intact, no focal neurological deficits. Skin: Clean dry and intact with no rash, purpura, petechiae, vesicles or pustules. Backs/flank: No CVA tenderness, no midline spinal tenderness, no deformity. Psych: Normal mood and affect. No SI, HI or acute psychosis. Const Vital Signs: 04/06/24 11:32 04/06/24 13:31 04/06/24 14:05 Temperature 98.9 F 97.5 F L Temperature Source Oral Pulse Rate 100 64 61 Respiratory Rate 16 18 14 Blood Pressure 126/66 H 115/74 104/78 Blood Pressure Mean 86 87 86 Pulse Ox 95 96 98 Oxygen Delivery Method Room Air Room Air <Francisco Fabian MD - Last Filed: 04/06/24 14:25> Physical Exam Const Vital Signs: 04/06/24 11:32 04/06/24 13:31 04/06/24 14:05 Temperature 98.9 F 97.5 F L Temperature Source Oral Pulse Rate 100 64 61 Respiratory Rate 16 18 14 Blood Pressure 126/66 H 115/74 104/78 Blood Pressure Mean 86 87 86 Pulse Ox 95 96 98 Oxygen Delivery Method Room Air Room Air MDM <WENDY Noyola - Last Filed: 04/06/24 14:21> [facility] Treatment and Re-Evaluation :: Differential diagnosis includes however is not limited to: Tibial fracture, tibial fibular fracture, dislocation, knee fracture, Patient appears to be in no obvious distress, vital signs are stable. Presenting to the emergency department with complaints of right leg pain secondary to an injury that occurred 1 hour ago. Obvious deformity. Patient x-rays of the right knee, right tibia-fibula will be obtained. All radiologic examinations were read, reviewed by the emergency department attending. From these reads, a plan of care will be put in place. IV fluids, IV morphine and Zofran will be given. X-rays showed a comminuted fracture of the proximal tibia. Secondary to the unstable, angulation, I do the patient needs orthopedic evaluation. There is no orthopedic coverage here today, I reached out to [facility], I was able to speak to the transfer center as well as the emergency room physician Dr. Cuevas. She will accept the patient. I placed the patient in a long-leg posterior splint for comfort for transport. All of the x-rays were sent with the patient. Patient was redosed with IV morphine, patient will likely receive another dose prior to transport. Patient remained stable. Patient is stable for transport. Patient will leave here and go to the [facility] emergency department. Patient is doing well on the long-leg posterior splint. <Francisco Fabian MD - Last Filed: 04/06/24 14:25> [facility] MDM Narrative Medical decision making narrative: Dr. Fabian: I have personally performed a face to face assessment of the patient and have reviewed the BLAYNE Note. I performed a substantive portion of the visit including all aspects of the following. My gordon findings include: History is right lower extremity pain, proximal tibial area after a piece of wood shot out of table saw. Patient had an leg, knocked to the ground, but unable to get up. Complains of pain proximal tibial area. Sustained a large abrasion to the area as well. Exam is GCS 15. ABCs are intact. Regular rate and rhythm. Lungs clear to auscultation bilaterally. Abdomen soft nontender with normoactive bowel sounds. Positive swelling and tenderness to palpation right proximal tibial area. Neuro vas intact distally. Palpable dorsalis pedis pulse. Medical Decision Making: Check x-rays. Analgesia. X-rays of the right knee and the right tibia/fibula interpreted by myself independently shows a comminuted fracture of the proximal tibia. It does not appear intra-articular. As orthopedics is unavailable here, patient discussed with transfer line and general. He has been accepted as an ED to ED transfer.. Disposition is transferred in stable condition. Other additions or changes: [None] Radiography X-Ray: Read by ED Physician and Read by Radiologist Discharge Plan Triage Chief Complaint: Lower Extremity Injury ED Midlevel Provider: Paulino Mcdonald ED Provider: Francisco Fabian Dx/Rx/DC Orders Clinical Impression: Leg injury, Fracture of proximal end of right tibia, Hematoma Prescriptions: No Action escitalopram oxalate 10 mg tablet 10 mg PO QDAY sucralfate [Carafate] 1 gram tablet 1 g PO ONCE sucralfate [Carafate] 100 mg/mL suspension 1 g PO Q6H Qty: 420 0RF Protonix 1 tab PO DAILY ropinirole 0.25 MG tablet 0.25 mg PO QHS Primary Care Provider: Jimenez James Referrals: Jimenez James, DO [Primary Care Provider] - Print Language: Mexican Disposition Disposition: Acute Care Hospital Discharge Location: [facility]
--- NOTE | 2024-04-06 11:48 | RAD_ITS ---
STUDY: X-RAY - RIGHT TIBIA AND FIBULA REASON FOR EXAM: Male, 64 years old. Injury TECHNIQUE: 3 view(s) of the tibia and fibula were obtained. COMPARISON: None. FINDINGS: There is a comminuted fracture of the proximal tibia. The remainder the visualized osseous structures are intact. There is diffuse soft tissue swelling. There are no radiodense foreign bodies. RAD/Tibia & Fibula 2 Views IMPRESSION: Comminuted fracture of the proximal tibia. Electronically Signed: Jori Le MD at 12:05 EDT ,
[2024-04-06] MEDS: Morphine 4 MG/ML Syringe IV ×2 (11:53→13:32)
[2024-04-06] MEDS: Ondansetron 4 MG/2 ML Vial IV ×2 (11:53→14:27)
[2024-04-06] MEDS: 0.9% Normal Saline (1000mL) 1,000 ML 125 ML IV (11:53)
[2024-04-06 13:31] VITALS: BP 115/74; PULSE 64; RESP 18; O2SAT 96
[2024-04-06 14:05] VITALS: BP 104/78; PULSE 61; RESP 14; TEMP 36.4; O2SAT 98
[2024-04-06] MEDS: HYDROmorphone 1 MG/ML Syringe IV (14:27)
== END 2024-04-06 14:37 | disposition short-term general hospital (02) ==
PROVIDERS: Emergency Provider Emergency Medicine; PCP Family Medicine; Visit Provider Emergency Medicine
DX: S82.251A Displaced comminuted fracture of shaft of right tibia, initial encounter for closed fracture (principal); F17.200 Nicotine dependence, unspecified, uncomplicated; X58.XXXA Exposure to other specified factors, initial encounter
CPT/HCPCS: 73560; 73590; 96374; 96375; 96376; 99283; J7030; A4216; J2405

== ENCOUNTER → 2025-04-23 | Outpatient (CLI) | payer BC, SELFPAY ==
--- OUTSIDE RECORDS SUMMARY | 2025-04-23 05:52 | XMS RPT_ITS | CCD ---
Author Organization [facility] ion [facility] Care Team Providers Care Occupational Health Nurse Supervisor Name Role Phone SANG URENA Luba Unavailable Unavailable LANA PRIETO Unavailable Unavailable Conner CHUA, Lana Verduzco Primary Care Provider [phone] Andre Yeh DO Primary Care Provider OUMAR WILLIAM Attending ANDRE Fernandes Primary Care Unavailable LANA PRIETO Primary Care Unavailable LUCY PONCE Attending Unavailable ANDRE YEH Primary Care Unavailable LUCY PONCE Attending Unavailable LANA PRIETO Primary Care Unavailable HUSEYIN STOUT Attending Unavailable SELF Referring Unavailable LANA PRIETO Primary Care Unavailable HUSEYIN STOUT Attending Unavailable ANDRE YEH Primary Care Unavailable Andre Yeh Attending Unavailable Andre Yeh Primary Care Unavailable Allergies Allergy Classification Reported Allergen(s) Allergy Type Date of Onset Reaction(s) Facility (2 sources) Acetaminophen Drug Allergy 08-08-2018 [facility] (2 sources) HYDROcodone Drug Allergy 08-08-2018 [facility] (10 sources) Acetaminophen / HYDROcodone; Translations: [HYDROCODONE-ACETA MINOPHEN] Drug Allergy 03-24-2016 Unknown [facility] (1 source) Acetaminophen Drug Allergy 04-06-2024 [facility] (1 source) HYDROcodone Drug Allergy 04-06-2024 [facility] Medications Current Medications Medication Drug Class(es) Dates Sig (Normalized) Sig (Original) escitalopram 10 mg oral tablet (2 sources) Serotonin Reuptake Inhibitor Start: 09-06-2017 take 10 mg by mouth once daily Escitalopram Oxalate Active 10 MG PO daily September 06, 2017 1:00am Y-Ucdwlkq-X0 Nmji-Fpbvoh-P88 (FOLTANX) 3-35-2 mg tab or Capsule (9 sources) A-Yekwjrw-N9 Xgqx-Wsbbha-R45 (FOLTANX) 3-35-2 mg tab or Capsule Take 1 tablet by mouth. Active F-Sgylcre-G7 Zahira h-Boywdd-S98 (FOLTANX) 3-35-2 mg tab or Capsule Take 1 tablet by mouth. 0 Active oxyCODONE hydrochloride 5 mg oral tablet (1 source) Opioid Agonist Start: 04-08-2024 End: 04-15-2024 take 1 tablet by mouth every six hours as needed for pain oxyCODONE IR (ROXICODONE) 5 mg immediate release tablet Indications: Closed complex fracture of right tibia Take 1 tablet by mouth every 6 hours as needed for pain for up to 7 days. 28 tablet 0 04/08/2024 04/15/2024 Active pantoprazole 40 mg delayed release oral tablet (11 sources) Proton Pump Inhibitor Start: 02-22-2017 take 1 tablet by mouth once daily pantoprazole DR (PROTONIX) 40 mg tablet Take 40 mg by mouth once daily. 02/22/2017 Active Start: 08-20-2016 take 1 tablet by mouth once da radha Protonix Active 1 TABLET PO DAILY August 20, 2016 1:00am rOPINIRole 0.25 mg oral tablet (2 sources) Nonergot Dopamine Agonist Start: 08-25-2017 take 0.25 mg by mouth at bedtime Ropinirole Active 0.25 MG PO AT BEDTIME August 25, 2017 1:00am sennosides, custodial 8.6 mg oral tablet (2 sources) Start: 04-08-2024 End: 04-18-2024 take 2 tablets by mouth every twelve hours as needed senna (SENOKOT) 8.6 mg tab Take 2 tablets by mouth two times a day as needed for constipation for up to 10 days. 20 tablet 0 04/08/2024 04/18/2024 Active sucralfate 100 mg/ml oral suspension (4 sources) Aluminum Complex Start: 09-15-2017 take 1 g by mouth every six hours Sucralfate (Carafate) 100 mg/mL suspension Active 1 GM PO EVERY 6 HOURS 420 September 15, 2017 1:00am Start: 09-06-2017 take 1 tablet by mouth once Grace cralfate (Carafate) 1 gram tablet Active 1 GM PO ONCE September 06, 2017 1:00am tamsulosin hydrochloride 0.4 mg oral capsule (9 sources) alpha-Adrenergic Paz take 0.8 mg by mouth once daily at bedtime tamsulosin (FLOMAX) 0.4 mg Take 0.8 mg by mouth daily at bedtime. Active vilazodone hydrochloride 40 mg oral tablet (9 sources) take 1 tablet by mouth once daily at mealtime vilazodone (VIIBRYD) 40 mg tablet Take 40 mg by mouth once daily. With food Active Completed/Discontinued Medications Medication Drug Class(es) Dates Sig (Normalized) Sig (Original) aspirin 81 mg delayed release oral tablet (6 sources) Platelet Aggregation Inhibitor, Nonsteroidal Anti-inflammatory Drug Start: 04-08-2024 End: 06-14-2024 take 1 tablet by mouth twice daily aspirin, enteric coated (ASPIRIN, ENTERIC COATED) 81 mg EC tablet Take 1 tablet by mouth two times a day for 21 days. 42 tablet 04/08/2024 06/14/2024 Discontinued (Course of therapy completed) Depression Med (2 sources) Start: 08-25-2017 End: 09-06-2017 take 1 tablet by mouth once daily Depression Med Discontinued 1 TABLET PO DAILY August 25, 2017 1:00am September 06, 2017 4:13pm Problems Active Problems Problem Classification Problem Date Documented Da te Episodic/Chronic Anxiety disorders (9 sources) Anxiety; Translations: [Anxiety disorder, unspecified] Onset: 06-18-2009 06-18-2009 Chronic Diabetes mellitus without complication (1 source) Impaired fasting glucose; Translations: [Impaired fasting glucose] Onset: 04-21-2025 Episodic Fracture of lower limb (15 sources) Closed fracture of tibia; Translations: [Other fracture of shaft of right tibia, initial encounter for closed fracture] Onset: 04-06-2024 Resolved: 04-08-2024 04-08-2024 Episodic Other aftercare (2 sources) Surgical follow-up; Translations: [Encounter for follow-up examination after completed treatment for conditions other than malignant neoplasm] 04-18-2024 Episodic Other aftercare (1 source) Encounter for follow-up examination after completed treatment for conditions other than malignant neoplasm; Translations: [Surgery follow-up examination] Onset: 08-27-2024 Episodic Other screening for suspected conditions (not mental disorders or infectious disease) (1 source) Encounter for screening for malignant neoplasm of prostate; Translations: [Encounter for screening for malignant neoplasm of prostate] Onset: 04-21-2025 Episodic Unclassified (1 source) Other Onset: 04-06-2024 Past or Other Problems Problem Classification Problem Date Documented Da te Episodic/Chronic Diseases of mouth; excluding dental (18 sources) Mucocele of salivary gland; 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-2016 Resolved: 03-13-2017 03-13-2017 Episodic Results Test Name Value Interpretation Reference Range Facility CNOVon 08-27-2024 CNOV Office Visit (AGPOB1 ) ANDRE PADRON ([id number]) 1960 M Date Time Provider Department 08/27/24 3:15 PM LUCY PONCE AGPOB1 During your visit today, we recorded the following information about you: Respiration Weight Height 16/minute 97.5 kg 1.854 m Lucy Ponce PA-C 08/27/2024 3:43 PM Signed Ortho Follow Up Note Impression: Stable follow-up right proximal tibia fracture Andre Padron presents for a 4.5 month follow-up of his right proximal tibia fracture status post IM nailing. Overall doing well. Ambulating full weightbearing without aids. Has some localized tenderness proximally and distal. Some patellofemoral crepitance with motion. Patellofemoral crepitance with motion. Wounds are well-healed. No effusion. ROM:0 -120. No tenderness of the proximal tibia. Does have some local inflammatory warmth consistent with fracture healing. Plan: He will continue with usage and weightbearing as tolerated. Can slowly begin weight lifting light weights at higher repetitions. Discussion on diet and balanced nutrition. Follow-up April 2025 for his 1 year anniversary sooner with any concerns or complications. 2 views right tib-fib at that visit. Lucy Ponce PA-C Allergies As of Date: 08/27/2024 Noted Allergy Reaction VICODIN (HYDROCODONE-ACETAMINOPHE* 16 - Unknown Comments: Made patient feel like he was having with drawls from pain medication. Date Reviewed: 08/27/2024 Reviewed by: Lakshmi Elam LPN - Fully Assessed Reason for Visit: Established Patient [175] Cmt: Denies pain or swelling, no recent falls or new injuries. Follow Up [171] Cmt: Denies pain or swelling, no recent falls or new injuries. Primary Visit Diagnosis:Closed fracture of proximal end of right tibia, unspecified fracture morphology, initial encounter [S82.101A] Other Visit Diagnosis:Surgery follow-up examination [Z09] Prescriptions as of 08/27/2024 - vilazodone (VIIBRYD) 40 mg tablet Take 40 mg by mouth once daily. With food - E-Vvchmvx-T1 Bkhz-Qgszks-P50 (FOLTANX) 3-35-2 mg tab or Capsule Take 1 tablet by mouth. - tamsulosin (FLOMAX) 0.4 mg Take 0.8 mg by mouth daily at bedtime. - pantoprazole DR (PROTONIX) 40 mg tablet Take 40 mg by mouth once daily. 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 Follow-up and Disposition History for Encounter Date Provider Department Center 08/27/2024 [id number] Text Encounter Status:Closed by LUCY PONCE on 08/27/24 [facility] 08-12-2024 [facility] Telephone (AGPOB1) ANDRE PADRON ([id number]) 1960 M Date Time Provider Department 08/12/24 HUSEYIN STOUT During your visit today, we recorded the following information about you: Juan Carlos David 08/12/2024 1:[address] STOUT WILL BE OUT OF THE OFFICE. WAS ABLE TO RS FROM HIM TO LUCY PONCE SAME DAY DIFFERENT TIME Allergies As of Date: 08/12/2024 Noted Allergy Reaction VICODIN (HYDROCODONE-ACETAMINOPHE* 16 - Unknown Comments: Made patient feel like he was having with drawls from pain medication. Date Reviewed: 07/11/2024 Reviewed by: Oumar William MD - Fully Assessed Reason for Visit: Appointment [186] Cmt: DR STOUT WILL BE OUT OF THE OFFICE. WAS ABLE TO RS FROM HIM TO LUCY PONCE SAME DAY DIFFERENT TIME Prescriptions as of 08/12/2024 - vilazodone (VIIBRYD) 40 mg tablet Take 40 mg by mouth once daily. With food - I-Dwuhswt-S9 Xhdj-Tkdsqt-M26 (FOLTANX) 3-35-2 mg tab or Capsule Take 1 tablet by mouth. - tamsulosin (FLOMAX) 0.4 mg Take 0.8 mg by mouth daily at bedtime. - pantoprazole DR (PROTONIX) 40 mg tablet Take 40 mg by mouth once daily. 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 Closed complex fracture of right tibia [S82.291*04/06/2024 04/08/2024 Encounter Status:Closed by JUAN CARLOS DAVID on 08/12/24 [facility] CNOVon 07-11-2024 [facility] Office Visit (AGPOB1 ) ANDRE PADRON ([id number]) 1960 M Date Time Provider Department 07/11/24 10:15 AM OUMAR WILLIAM AGPOB1 During your visit today, we recorded the following information about you: Respiration Weight Height 20/minute 97.5 kg 1.854 m Oumar William MD 07/14/2024 11:12 AM Signed ORTHOPAEDIC OFFICE NOTE CHIEF COMPLAINT: right leg injury HISTORY OF PRESENT ILLNESS: Andre Padron is a 64 year old male who presents for reevaluation of intramedullary nail placement right tibia shaft fracture 04/07/[address] Zuleima Stout. Has been weight bearing as tolerated on the extremity. Pain and swelling generally improved. Does not note instability of the leg with activity. No new injury mechanism. 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 Reviewed all prior orthopaedic notes, Dr. Zuleima Stout, [facility] [place], reviewed operative note and prior images. Reviewed nursing note and current pain scale. PAST MEDICAL HISTORY Diagnosis Date - GERD (gastroesophageal reflux disease) - ADAIR (obstructive sleep apnea) states mild case and no CPAP use - Snoring PAST SURGICAL HISTORY Procedure Laterality Date - ANES OPEN/SURG ARTHROSCOPIC ELBOW PROC NOS Right - ANES OPEN/SURG ARTHROSCOPIC PROC KNEE JOINT NOS Left - APPENDECTOMY - COLONOSCOPY FLX DX W/COLLJ SPEC WHEN PFRMD 09/23/2013 Colonoscopy - ESOPHAGOGASTRODUODENOSCOPY TRANSORAL DIAGNOSTIC 09/23/2013 EGD - ESOPHAGOGASTRODUODENOSCOPY TRANSORAL DIAGNOSTIC 08/02/2019 EGD - PAST SURGICAL HISTORY OF Right 04/07/2024 IM Nail right tibia FAMILY HISTORY Problem Relation Age of Onset - Diabetes Father - other (Heart disease) Father - No Known Problems Mother - No Known Problems Sister - other (brain tumor) Brother Social History Tobacco Use - Smoking status: Some Days Types: Cigars - Smokeless tobacco: Never - Tobacco comments: occasionally Substance Use Topics - Alcohol use: Yes Comment: occassional - Drug use: No MEDICATIONS: Current Outpatient Medications Medication Sig - vilazodone (VIIBRYD) 40 mg tablet Take 40 mg by mouth once daily. With food - P-Dnexkdj-V1 Ojqc-Cguvka-Q43 (FOLTANX) 3-35-2 mg tab or Capsule Take 1 tablet by mouth. - tamsulosin (FLOMAX) 0.4 mg Take 0.8 mg by mouth daily at bedtime. - pantoprazole DR (PROTONIX) 40 mg tablet Take 40 mg by mouth once daily. No current facility-administered medications for this visit. ALLERGIES: ALLERGIES Allergen Reactions - Vicodin [Hydrocodon* Unknown Made patient feel like he was having with drawls from pain medication. PHYSICAL EXAMINATION: Resp 20 Ht 6' 1 (1.85m) Wt 215 lb (97.5kg) BMI 28.37 kg/(m2). General Appearance: Well appearing, alert, in no acute distress, well-hydrated, well nourished. Skin: Skin color, texture, turgor normal, no suspicious rashes or lesions. Extremities: Right leg with healed surgical incisions. Mild edema. Right thigh and leg compartments soft and compressible. Demonstrates comfortable full right knee flexion and extension. Demonstrates comfortable right foot DF/PF 5/5/5 strength. Peripheral Pulses: Normal. Neurologic: Intact light touch sensation right lower extremity. IMAGES: Recent Results (from the past 36 hour(s)) XR TIBIA FIBULA 2V AP/LAT RIGHT Narrative AP and lateral views right tibia demonstrate no change in appearance of the visualized hardware about the proximal tibia compared to prior past images. Distal locking screws incompletely imaged. Tibial alignment appropriate with evidence of bone activity in both planes. Posterior fragment with bone resorption about the edges and unchanged in position. No new fracture identified. ASSESSMENT AND PLAN: 1. Other closed fracture of proximal end of right tibia with routine healing, subsequent encounter - ICD9: V54.16, ICD10: S82.191D Functional Plan: No restrictions with weight bearing or range of motion right lower extremity, symptom limited. Assistance Devices: None. Physical/Occupational Therapy: None currently. Wound Care: None. Pain Control: No change in pain regimen recommended this office visit. Additional: Administered work return letter per request for 07/15/2024 without restriction. Return in about 6 weeks (around 08/22/2024). Dr. Michel William MD Medical Decision Making: Problems: Low: Stable chronic illness Data: Unique source(s) for external note(s) reviewed: 3+ Unique test result(s) reviewed: 1 Unique test(s) ordered: 1 Risk: Low: Low risk from testing/treatment Medical Decision Making Level: 3 - Low Referring Provider: SELF [200] Allergies As of Date: 07/11/2024 Noted Allergy Reaction VICODIN (HYDROCODONE-ACETAMINOPHE* 16 - Unknown Comments: Made patient feel like he was having with drawls from pain medication. Date Reviewed: 07/11/2024 Reviewed by: Oumar William (more content not included)... Normal [facility] XR Tibia and Fibula - right AP and Lateralon 07-11-2024 AP and lateral views right tibia demonstrate no change in appearance of the visualized hardware about the proximal tibia compared to prior past images. Distal locking screws incompletely imaged. Tibial alignment appropriate with evidence of bone activity in both planes. Posterior fragment with bone resorption about the edges and unchanged in position. No new fracture identified. [facility] RADIOLOGY [facility] Radiology Study observation (narrative) [facility] CNOVon 06-14-2024 CNOV Office Visit (AGHWW1 ) ANDRE PADRON ([id number]) 1960 M Date Time Provider Department 06/14/24 11:30 AM HUSEYIN STOUT AGHWW1 During your visit today, we recorded the following information about you: Respiration Weight Height 16/minute 97.5 kg 1.854 m Huseyin Stout MD 06/14/2024 11:39 AM Signed I ordered, obtained interpreted today AP and lateral views of the right proximal tibia for follow-up of his proximal tibia fracture. Compared to previous radiographs shows his comminuted fracture of the proximal third of his tibia stabilized by IM nail. Fracture remains well aligned. Hardware intact. Interval healing noted. Impression: Stable follow-up right proximal tibia fracture Andre Padron presents for a 10-week follow-up of his right proximal tibia fracture status post IM nailing. Overall doing well. Progressing in physical therapy. Ambulating full weightbearing without aids. Has some localized tenderness proximally. Some patellofemoral crepitance with motion. Has completed his physical therapy and is going to transition to his home program. Still feels occasional sensation of weakness and giving way to his leg. Does not feel ready to return to work and I would agree. On examination he has some patellofemoral crepitance with motion. Wounds are well-healed. No effusion. 0 -115 degrees range of motion. No tenderness of the proximal tibia. Does have some local inflammatory warmth consistent with fracture healing. At this point he is continue to make slow but steady progress. Fracture still not healed completely clinically or radiographically but making progress. He will continue with his home exercise program. Discussed activity modifications and rest as needed. Will see him back in 4 weeks time for reevaluation potential return to work. GAV Allergies As of Date: 06/14/2024 Noted Allergy Reaction VICODIN (HYDROCODONE-ACETAMINOPHE* 16 - Unknown Comments: Made patient feel like he was having with drawls from pain medication. Date Reviewed: 06/14/2024 Reviewed by: Huseyin Stout MD - Fully Assessed Reason for Visit: Post Op [174] Primary Visit Diagnosis:Other closed fracture of proximal end of right tibia with routine healing, subsequent encounter [S82.265D] Order(s):XR KNEE LIMITED 2V AP/LAT RIGHT [[id number]] Order #: [id number] FUTURE Prescriptions as of 06/14/2024 - vilazodone (VIIBRYD) 40 mg tablet Take 40 mg by mouth once daily. With food - H-Lsckncm-B2 Jwyl-Glhhqz-L22 (FOLTANX) 3-35-2 mg tab or Capsule Take 1 tablet by mouth. - tamsulosin (FLOMAX) 0.4 mg Take 0.8 mg by mouth daily at bedtime. - pantoprazole DR (PROTONIX) 40 mg tablet Take 40 mg by mouth once daily. 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 Disposition: Return in about 4 weeks (around 07/12/2024). Follow-up and Disposition History for Encounter Date Provider Department Center 06/14/2024 [id number] STOUT AL*AGHWW1 [facility] [place] Letter Text Encounter Status:Closed by HUSEYIN STOUT on 06/14/24 Normal [facility] CNOVon 05-15-2024 CNOV Office Visit (AGPOB1 ) ANDRE PADRON ([id number]) 1960 M Date Time Provider Department 05/15/24 10:30 AM HUSEYIN STOUT AGPOB1 During your visit today, we recorded the following information about you: Respiration Weight Height 16/minute 97.5 kg 1.854 m Huseyin Stout MD 05/15/2024 11:06 AM Signed X-ray interpretation:I ordered, obtained and interpreted today AP and lateral views of the proximal tibia for follow-up of a right proximal tibia fracture. Compared to previous radiographs shows his comminuted proximal third tibia fracture in good position. Intramedullary nail intact. Impression: Stable follow-up right proximal tibial fracture Andre Padron Comes in for 5-week follow-up of his right proximal tibia fracture. Has been doing well with his home exercise program. Has been partial weightbearing with his crutches. Feeling more comfortable. Starting to get more weight on the leg as he has been testing it because it has been feeling good. Examination today his wounds are well-healed. He has 0 to 110 degrees range of motion. He has no calf pain or distal edema. At this point he can progress to weightbearing as tolerated. Can progress from his crutches to a cane as needed. Will start him on some outpatient physical therapy. 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 Sooner if there is any issues. GAV Referring Provider: SELF [200] Allergies As of Date: 05/15/2024 Noted Allergy Reaction VICODIN (HYDROCODONE-ACETAMINOPHE* 16 - Unknown Comments: Made patient feel like he was having with drawls from pain medication. Date Reviewed: 05/15/2024 Reviewed by: Paulino Villa Tech - Fully Assessed Reason for Visit: Established Patient [175] Follow Up [171] Post Op [174] Primary Visit Diagnosis:Closed fracture of proximal end of right tibia, unspecified fracture morphology, initial encounter [S82.101A] Order(s):XR KNEE LIMITED 2V AP/LAT RIGHT [[id number]] Order #: [id number] CONSULT TO PHYSICAL THERAPY [9032] Order #: [id number]: 1 FUTURE Prescriptions as of 05/15/2024 - vilazodone (VIIBRYD) 40 mg tablet Take 40 mg by mouth once daily. With food - aspirin, enteric coated (ASPIRIN, ENTERIC COATED) 81 mg EC tablet Take 1 tablet by mouth two times a day for 21 days. - O-Tqyobef-J6 Hshu-Tpcusr-R85 (FOLTANX) 3-35-2 mg tab or Capsule Take 1 tablet by mouth. - tamsulosin (FLOMAX) 0.4 mg Take 0.8 mg by mouth daily at bedtime. - pantoprazole DR (PROTONIX) 40 mg tablet Take 40 mg by mouth once daily. 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 Follow-up and Disposition History for Encounter Date Provider Department Center 05/15/2024 [id number] STOUT*AGPOB1 Ag Pob Encounter Status:Closed by HUSEYIN STOUT on 05/15/24 Normal [facility] XR Knee - right AP and Later shady 05-15-2024 I ordered, obtained and interpreted today AP and lateral views of the proximal tibia for follow-up of a right proximal tibia fracture. Compared to previous radiographs shows his comminuted proximal third tibia fracture in good position. Intramedullary nail intact. Impression: Stable follow-up right proximal tibial fracture [facility] RADIOLOGY [facility] Radiology Study observation (narrative) [facility] CNCOon 04-23-2024 CNCO Letter Text Normal [facility] CNPNon 04-23-2024 CNPN Telephone (AGPOB1) NEREIDAANDRE Maradiaga ([id number]) 1960 M Date Time Provider Department 04/23/24 [facility]IN STOUT [facility] During your visit today, we recorded the following information about you: Millie Donovan 04/23/2024 1:35 PM Signed ----- Message from Melanie Braden sent at 04/23/2024 1:11 PM EDT ----- Regarding: Orthopedic/ [PA Ponce]/ [Paperwork] Subject Line Format: Orthopedics / [Provider Name or Open AND Body Part] / [Issue] Patient has been identified by name and Date of (Y/N): Y Patient: Andre Padron Date of : 1960 Previous Provider Seen: Ponce Body Part(s) Identified: NA Diagnosis/Reason For Visit: NA Reason for the call/escalation: Patient called in to talk to office for FMLA paperwork and a doctor's excuse paper to submit. Patient would like call back at earliest convenience If reason for call/escalation is discharge from ED/ER or Hospital, which facility was the patient seen at: NA Was an appointment scheduled (Y/N): N Person calling if other than patient: Patient Return call to if other than patient: Patient Best contact number: [phone] Thank you, Melanie Braden April 23, 2024 1:11 PM LinwoodFlaquita Giovani 04/23/2024 2:28 PM Signed I called and spoke with the patient again to let him know that once it is signed I will send via my chart. Flaquita Matute Palumbo Allergies As of Date: 04/23/2024 Noted Allergy Reaction VICODIN (HYDROCODONE-ACETAMINOPHE* 16 - Unknown Comments: Made patient feel like he was having with drawls from pain medication. Date Reviewed: 04/18/2024 Reviewed by: Julián Mcdowell Tech - Fully Assessed Reason for Visit: Patient Question [4363] Prescriptions as of 04/23/2024 - vilazodone (VIIBRYD) 40 mg tablet Take 40 mg by mouth once daily. With food - aspirin, enteric coated (ASPIRIN, ENTERIC COATED) 81 mg EC tablet Take 1 tablet by mouth two times a day for 21 days. - H-Exzdoxr-S9 Mzwl-Dkdlft-N59 (FOLTANX) 3-35-2 mg tab or Capsule Take 1 tablet by mouth. - tamsulosin (FLOMAX) 0.4 mg Take 0.8 mg by mouth daily at bedtime. - pantoprazole DR (PROTONIX) 40 mg tablet Take 40 mg by mouth once daily. 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 Closed complex fracture of right tibia [S82.291*04/06/2024 04/08/2024 Encounter Status:Closed by FLAQUITA PALUMBO on 04/23/24 [facility] Shi 04-22-2024 CNPN Telephone (AGPOB1) ANDRE PADRON ([id number]) 1960 M Date Time Provider Department 04/22/24 [facility], HUSEYIN COLES AGPOB1 During your visit today, we recorded the following information about you: Flaquita Palumbo 04/22/2024 5:20 PM Signed ----- Message from Melanie Braden sent at 04/22/2024 4:09 PM EDT ----- Regarding: Orthopedics/ [Ponce]/ [FMLA Paperwork] Subject Line Format: Orthopedics / [Provider Name or Open AND Body Part] / [Issue] Patient has been identified by name and Date of (Y/N): Y Patient: Andre Padron Date of : 1960 Previous Provider Seen: RAMAN Ponce Body Part(s) Identified: NA Diagnosis/Reason For Visit: NA Reason for the call/escalation: Patient called in for a status update on his FMLA paperwork. Contacted the office but department secretary was out. Patient would like call back at earliest convenience If reason for call/escalation is discharge from ED/ER or Hospital, which facility was the patient seen at: NA Was an appointment scheduled (Y/N): N Person calling if other than patient: Patient Return call to if other than patient: Patient Best contact number: [phone] Thank you, Melanie Braden April 22, 2024 4:09 PM [place] Flaquita Matute 04/22/2024 5:22 PM Signed I called and talked with the patient and let him know we rec'd the form, when it was done I would fax it. He asked if I could send via my chart and I let him know if he activates it this evening, it should be available tomorrow. Flaquita Palumbo Allergies As of Date: 04/22/2024 Noted Allergy Reaction VICODIN (HYDROCODONE-ACETAMINOPHE* 16 - Unknown Comments: Made patient feel like he was having with drawls from pain medication. Date Reviewed: 04/18/2024 Reviewed by: Julián Mcdowell Tech - Fully Assessed Prescriptions as of 04/22/2024 - vilazodone (VIIBRYD) 40 mg tablet Take 40 mg by mouth once daily. With food - aspirin, enteric coated (ASPIRIN, ENTERIC COATED) 81 mg EC tablet Take 1 tablet by mouth two times a day for 21 days. - E-Zlotwfz-E3 Rtsp-Bhyavs-T50 (FOLTANX) 3-35-2 mg tab or Capsule Take 1 tablet by mouth. - tamsulosin (FLOMAX) 0.4 mg Take 0.8 mg by mouth daily at bedtime. - pantoprazole DR (PROTONIX) 40 mg tablet Take 40 mg by mouth once daily. 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 Closed complex fracture of right tibia [S82.291*04/06/2024 04/08/2024 Encounter Status:Closed by FLAQUITA PALUMBO on 04/22/24 [facility] CNOVon 04-18-2024 [facility] Office Visit (AGHWW1 ) ANDRE PADRON ([id number]) 1960 M Date Time Provider Department 04/18/24 11:15 AM LUCY PONCE AGHWW1 During your visit today, we recorded the following information about you: Respiration Weight Height 16/minute 97.5 kg 1.854 m Lucy Ponce PA-C 04/18/2024 11:50 AM Signed Orthopedic Post Operative Note DOS:04/07/24 Procedure:IM Nailing right Tibia Surgeon:TIFF Subjective: Patient is a 64 years old seen in follow up day 11. With postoperative recovery. Off of all narcotics. Touchdown weightbearing using crutches. Denies any calf pain or shortness of breath. There is been no drainage from the incision or the wounds. Exam: Alert oriented 64-year-old male NAD Lower extremity inspection shows surgical incisions are secured with vonda and skin glue. No signs of drainage or breakdown Knee is in neutral alignment. Vascularly intact right lower extremity with a positive FHL/EHL of the right great toe. Capillary refill less than 2 seconds distal nailbeds right lower extremity. Sensations intact throughout all dermatomes of the right leg. Diagnostic Imagin views of the right tibia showing intramedullary nohemi spanning the length of the tibia and locked with distal and proximal screws. IM nail is intramedullary encompassing the proximal third of the tibial shaft with a multifragmented fracture mostly reduced to near anatomic position. Assessment:S/P medullary nailing right tibia fracture 04/07/2024 doing well and making good post operative recovery. Plan: Functional Plan: Continue with 50% partial weightbearing using crutches Assistance Devices: None Physical/Occupational Therapy: Exercise program discussed and demonstrated today to include strict elevation, isometric quad contractions. Of motion of the knee is improved. Wound Care: Daily wet soapy rinse and dry. No Jacuzzis or bathtubs. He is not to use any antibiotic ointments on the incisions. Pain Control: Ice, heat, extra strength Tylenol, limited NSAIDs Additional: Andre will be seen back in 3 weeks time for repeat 2 views of the right tib-fib. Follow-up sooner with any worsening or concerning symptoms. Lucy Ponce PA-C Allergies As of Date: 04/18/2024 Noted Allergy Reaction VICODIN (HYDROCODONE-ACETAMINOPHE* 16 - Unknown Comments: Made patient feel like he was having with drawls from pain medication. Date Reviewed: 04/18/2024 Reviewed by: Julián Mcdowell Tech - Fully Assessed Reason for Visit: Post Op [174] Primary Visit Diagnosis:Surgery follow-up examination [Z09] Order(s):XR TIBIA FIBULA 2V AP/LAT RIGHT [[id number]] Order #: [id number] Prescriptions as of 04/18/2024 - vilazodone (VIIBRYD) 40 mg tablet Take 40 mg by mouth once daily. With food - aspirin, enteric coated (ASPIRIN, ENTERIC COATED) 81 mg EC tablet Take 1 tablet by mouth two times a day for 21 days. - senna (SENOKOT) 8.6 mg tab Take 2 tablets by mouth two times a day as needed for constipation for up to 10 days. - G-Xcryjvy-U0 Wiqi-Ubrkqf-B34 (FOLTANX) 3-35-2 mg tab or Capsule Take 1 tablet by mouth. - tamsulosin (FLOMAX) 0.4 mg Take 0.8 mg by mouth daily at bedtime. - pantoprazole DR (PROTONIX) 40 mg tablet Take 40 mg by mouth once daily. 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 Follow-up and Disposition History for Encounter Date Provider Department Center 04/18/2024 [id number], JAMES AGHWW1 [facility] Encounter Status:Closed by LUCY PONCE on 04/18/24 [facility] 04-09-2024 [facility] Telephone (AGPOB1) ANDRE PADRON ([id number]) 1960 M Date Time Provider Department 04/09/24 [facility] During your visit today, we recorded the following information about you: Flaquita Palumbo 04/09/2024 11:13 AM Signed Patient may see his ortho surgeon he is established with. If that surgeon will not see him, he will need an appt on 04-18-24 [facility] with Lucy. I called the patient and left a voicemail with my name, number and ext to call back to schedule, if needed. Flaquita Cerda 04/12/2024 8:23 AM Signed late entry I spoke with the patient and scheduled an appointment. Flaquita Palumbo Allergies As of Date: 04/09/2024 Noted Allergy Reaction VICODIN (HYDROCODONE-ACETAMINOPHE* 16 - Unknown Comments: Made patient feel like he was having with drawls from pain medication. Date Reviewed: 04/07/2024 Reviewed by: Kamini Petersen RN - Fully Assessed Reason for Visit: Appointment [186] Prescriptions as of 04/12/2024 - oxyCODONE IR (ROXICODONE) 5 mg immediate release tablet Take 1 tablet by mouth every 6 hours as needed for pain for up to 7 days. - vilazodone (VIIBRYD) 40 mg tablet Take 40 mg by mouth once daily. With food - aspirin, enteric coated (ASPIRIN, ENTERIC COATED) 81 mg EC tablet Take 1 tablet by mouth two times a day for 21 days. - senna (SENOKOT) 8.6 mg tab Take 2 tablets by mouth two times a day as needed for constipation for up to 10 days. - N-Tafkaqz-X1 Uglq-Wqmmlt-I48 (FOLTANX) 3-35-2 mg tab or Capsule Take 1 tablet by mouth. - tamsulosin (FLOMAX) 0.4 mg Take 0.8 mg by mouth daily at bedtime. - pantoprazole DR (PROTONIX) 40 mg tablet Take 40 mg by mouth once daily. 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 Closed complex fracture of right tibia [S82.291*04/06/2024 04/08/2024 Encounter Status:Closed by FLAQUITA PALUMBO on 04/12/24 Normal [facility] Basic metabolic 2000 panelon 04-08-2024 Anion gap [Moles/Vol] 9 mmol/L Normal 8-15 [facility] Comment on above: Order Comment: Speci men Type: BLOOD SPECIMENOrdering Facility: [facility] Address: [address] [place] [address] Performed By: #### 2 4321-2 ####[facility] LABORATORYCLIA [id number] [place] [address] [place] Calcium [Mass/Vol] 8.5 mg/dL Normal 8.5-10.2 [facility] Comment on above: Order Comment: Speci men Type: BLOOD SPECIMENOrdering Facility: [facility] Address: [address] [place] [address] Performed By: #### 2 4321-2 ####[facility] LABORATORYCLIA [id number] [place] [address] [place] Chloride [Moles/Vol] 103 mmol/L Normal 98-107 [facility] Comment on above: Order Comment: Speci men Type: BLOOD SPECIMENOrdering Facility: [facility] Address: [address] [place] [address] Performed By: #### 2 4321-2 ####[facility] LABORATORYCLIA [id number] [address] [place] CO2 [Moles/Vol] 27 mmol/L Normal 22-30 [facility] Comment on above: Order Comment: Speci men Type: BLOOD SPECIMENOrdering Facility: [facility] Address: [address] [place] [address] Performed By: #### 2 4321-2 ####[facility] LABORATORYCLIA [id number] [place] [address] [place] Creatinine [Mass/Vol] 0.73 mg/dL Normal 0.73-1.22 [facility] Comment on above: Order Comment: Speci men Type: BLOOD SPECIMENOrdering Facility: [facility] Address: [address] [place] [address] Performed By: #### 2 4321-2 ####[facility] LABORATORYCLIA [id number] [address] Creatinine and Glomerular filtration rate.predicted panel (S/P/Bld) 102 mL/min/1.73m??? Normal >=60 [facility] Comment on above: Order Comment: Speci men Type: BLOOD SPECIMENOrdering Facility: [facility] Address: [address] [place] [address] Result Comment: Ashlee mated Glomerular Filtration Rate (eGFR) is calculated using the 2020 CKD-EPI creatinine equation. This equation utilizes serum creatinine, sex, and age as parameters. The creatinine assay has traceable calibration to isotope dilution-mass spectrometry. Refer to KDIGO guidelines for clinical interpretation. In patients with unstable renal function, e.g. those with acute kidney injury, the eGFR may not accurately reflect actual GFR. Performed By: #### 2 4321-2 ####[facility] LABORATORYCLIA [id number] [place] [address] [place] Glucose [Mass/Vol] 193 mg/dL High 74-99 [facility] Comment on above: Order Comment: Speci men Type: BLOOD SPECIMENOrdering Facility: [facility] Address: [address] [place] [address] Result Comment: The [place] Diabetes Association (ADA) provides guidance for cutoff values for fasting glucose and random glucose. The ADA defines fasting as no caloric intake for at least 8 hours. Fasting plasma glucose results between 100 to 125 mg/dL indicate increased risk for diabetes (prediabetes). Fasting plasma glucose results greater than or equal to 126 mg/dL meet the criteria for diagnosis of diabetes. In the absence of unequivocal hyperglycemia, results should be confirmed by repeat testing. In a patient with classic symptoms of hyperglycemia or hyperglycemic crisis, random plasma glucose results greater than or equal to 200 mg/dL meet the criteria for diagnosis of diabetes. Reference: Standards of Medical Care in Diabetes 2016, [place] [employer]. Diabetes Care. 2016.39(Suppl 1). Performed By: #### 2 4321-2 ####[facility] LABORATORYCLIA [id number] [place] [address] [place] Potassium [Moles/Vol] 4.1 mmol/L Normal 3.7-5.1 [facility] Comment on above: Order Comment: Speci men Type: BLOOD SPECIMENOrdering Facility: [facility] Address: [address] [place] [id number] Performed By: #### 2 4321-2 ####[facility] LABORATORYCLIA [id number] [place] [id number] [place] Sodium [Moles/Vol] 139 mmol/L Normal 136-144 [facility] Comment on above: Order Comment: Speci men Type: BLOOD SPECIMENOrdering Facility: [facility] Address: [address] [place] [address] Performed By: #### 2 4321-2 ####[facility] LABORATORYCLIA [id number] [address] [place] [facility] Urea nitrogen [Mass/Vol] 14 mg/dL Normal 9-24 [facility] Comment on above: Order Comment: Speci men Type: BLOOD SPECIMENOrdering Facility: [facility] Address: [address] [place] [address] Performed By: #### 2 4321-2 ####[facility] LABORATORYCLIA [id number] [address] [place] [facility] CBC panel Auto (Bld)on 04-08 Erythrocyte distribution width (RBC) [Ratio] 12.5 % Normal 11.5-15.0 [facility] Comment on above: Order Comment: Speci men Type: BLOOD SPECIMENOrdering Facility: [facility] Address: [address] [place] [address] Performed By: #### 5 8410-2 ####[facility] LABORATORYCLIA [id number] [address] [place]#### [address]-9 ####[facility] LABCLIA [id number] [address] [place] Hematocrit (Bld) [Volume fraction] 30.6 % Low 39.0-51.0 [facility] Comment on above: Order Comment: Speci men Type: BLOOD SPECIMENOrdering Facility: [facility] Address: [address] [place] [address] Performed By: #### 5 8410-2 ####[facility] LABORATORYCLIA [id number] [address] [place]#### [address]-6 ####[facility] LABCLIA [id number] [place] [address] [place] Hemoglobin (Bld) [Mass/Vol] 10.6 g/dL Low 13.0-17.0 [facility] Comment on above: Order Comment: Speci men Type: BLOOD SPECIMENOrdering Facility: [facility] Address: [address] [place] [address] Performed By: #### 5 8410-2 ####[facility] LABORATORYCLIA [id number] [address] [place] [facility]#### 30210-4 ####[facility] LABCLIA [id number] [place] [address] [place] MCH (RBC) [Entitic mass] 31.2 pg Normal 26.0-34.0 [facility] Comment on above: Order Comment: Speci men Type: BLOOD SPECIMENOrdering Facility: [facility] Address: [address] [place] [address] Performed By: #### 5 8410-2 ####[facility] LABORATORYCLIA [id number] [address]#### [address]-7 ####[facility] LABCLIA [id number] [place] [address] [place] MCHC (RBC) [Mass/Vol] 34.6 g/dL Normal 30.5-36.0 [facility] Comment on above: Order Comment: Speci men Type: BLOOD SPECIMENOrdering Facility: [facility] Address: [address] [place] [address] Performed By: #### 5 8410-2 ####[facility] LABORATORYCLIA [id number] [address]#### [address]-7 ####[facility] LABCLIA [id number] [place] [address] [place] MCV (RBC) [Entitic vol] 90.0 fL Normal 80.0-100.0 [facility] Comment on above: Order Comment: Speci men Type: BLOOD SPECIMENOrdering Facility: [facility] Address: [address] [place] [address] Performed By: #### 5 8410-2 ####[facility] LABORATORYCLIA [id number] [address] [place]#### [address]-2 ####[facility] LABCLIA [id number] [place] [address] [place] Nucleated RBC (Bld) [#/Vol] 10*3/uL Normal <0.01 [facility] Comment on above: Order Comment: Speci men Type: BLOOD SPECIMENOrdering Facility: [facility] Address: [address] [place] [address] Performed By: #### 5 8410-2 ####[facility] LABORATORYCLIA [id number] [address]#### [address]-2 ####[facility] LABCLIA [id number] [place] [address] [place] Platelet mean volume (Bld) [Entitic vol] 8.6 fL Low 9.0-12.7 [facility] Comment on above: Order Comment: Speci men Type: BLOOD SPECIMENOrdering Facility: [facility] Address: [address] [place] [address] Performed By: #### 5 8410-2 ####[facility] LABORATORYCLIA [id number] [address] [place]#### [address]-9 ####[facility] LABCLIA [id number] [place] [address] [place] Platelets (Bld) [#/Vol] 206 10*3/uL Normal 150-400 [facility] Comment on above: Order Comment: Speci men Type: BLOOD SPECIMENOrdering Facility: [facility] Address: [address] [place] [address] Performed By: #### 5 8410-2 ####[facility] LABORATORYCLIA [id number] [address] [place]#### [address]-4 ####[facility] LABCLIA [id number] [place] [address] [place] RBC (Bld) [#/Vol] 3.40 10*6/uL Low 4.20-6.00 [facility] Comment on above: Order Comment: Speci men Type: BLOOD SPECIMENOrdering Facility: [facility] Address: [address] [place] [address] Performed By: #### 5 8410-2 ####[facility] LABORATORYCLIA [id number] [address]#### [address]-4 ####[facility] LABCLIA [id number] [place] [address] [place] WBC (Bld) [#/Vol] 9.14 10*3/uL Normal 3.70-11.00 [facility] Comment on above: Order Comment: Speci men Type: BLOOD SPECIMENOrdering Facility: [facility] Address: [address] [place] [address] Performed By: #### 5 8410-2 ####[facility] LABORATORYCLIA [id number] [address]#### [address]-7 ####[facility] LABCLIA [id number] [address] [place] CNDSon 04-08-2024 [facility] HNO ID: [id number] Author: HUSEYIN STOUT MD Service: Orthopaedic Surgery Author Type: Nurse Practitioner Type: Discharge Summary Filed: 04/08/2024 13:09 Note Text: Attestation signed by Huseyin Stout MD at 04/08/2024 1:09 PM Signature: Huseyin Stout MD Service Date: 04/08/2024 Service Time: 1:09 PM ORTHOPEDIC SURGERY DISCHARGE SUMMARY ADMISSION DATE: 04/06/2024 DISCHARGE DATE: 04/08/2024 Attending Physician: Huseyin Stout MD Admitting Diagnosis: comminuted proximal tibia fracture Discharge Diagnosis: Same as admitting Additional Diagnoses: ACTIVE PROBLEM LIST Anxiety Sialocele Closed Complex Fracture of Right Tibia Surgeries During Hospitalization: Procedure(s) (LRB): INSERTION NAIL / NOHEMI INTRAMEDULLARY TIBIA (Right) Consultations: Occupational Therapy Physical Therapy Case Management Internal Medicine Hospital Course: The patient is a 64 year old male who has been followed by Huseyin Ayoub MD, MD. It was determined he would benefit from surgery. The procedure, its risks, benefits, and potential complications were discussed in detail with the patient or POA prior to surgery. Understanding of all topics was conveyed by the patient or POA, and consent was given for surgery. The patient was emergently admitted through the Emergency Department to [facility] on 04/06/2024. Surgery was scheduled and on 04/07/2024 he underwent a Procedure(s) (LRB): INSERTION NAIL / NOHEMI INTRAMEDULLARY TIBIA (Right). The procedure was tolerated well and he was sent to the post operative recovery room in stable condition, where he also did well. He was subsequently sent to his hospital room for postoperative management. Once on the floor his postoperative course was unremarkable and he did well. His diet was advanced which he tolerated. His pain was well controlled. He worked with Physical and Occupational Therapy who recommended he be discharged to home. He remained afebrile with stable vital signs throughout his stay. He was stable for discharge on POD#1. Complete and comprehensive discharge instructions were provided to the patient as well as necessary prescriptions. The patient had no further questions and was advised to call with any questions, concerns, or problems. Patient was hemodynamically stable postoperatively. Relevant labs included: Hemoglobin (g/dL) Date Value 04/08/2024 10.6 (L) 04/07/2024 11.9 (L) 04/06/2024 13.0 Hematocrit (%) Date Value 04/08/2024 30.6 (L) 04/07/2024 34.8 (L) 04/06/2024 37.4 (L) Discharge Antibiotics: None Prior to surgery the patient was treated with antibiotics and continued with antibiotics 24 hours postoperatively DVT Prophylaxis: Sequential Compression Devices and Aspirin to reduce risk of bleeding Complications: Internal medicine was consulted for post op medical management. Surgical site Care: Remove dressing on post op day #7, 04/14/2024. Once dressing removed, shower and wash with soap and water and pat area dry. No creams, lotions, powders, alcohol or peroxide to incisional area. If incision is dry, leave open to air. Weight Berwaing: WBAT RLE Diet: Regular diet Patient Condition @ Discharge: Stable BP 102/51 Pulse 67 Temp 36.5 ?C (97.7 ?F) (Oral) Resp 18 Ht 185.4 cm (6' 1) Wt 97.9 kg (215 lb 13.3 oz) SpO2 94% BMI 28.48 kg/m? Discharge Disposition: Home with Self Care The patient was instructed to follow-up in : FOLLOW UP WITH DR. HUSEYIN STOUT IN 2 WEEKS. CALL FOR SCHEDULED APPOINTMENT FOLLOW UP WITH PCP RE Hg1c. Call to schedule appointment Highest Readmission Risk Score: 12 The 30 day readmissions risk score is derived from an internally validated risk model which evaluates patient level characteristics, utilization history, medication orders and lab results up until the day of discharge. Patients with a score of 40 or above are considered highest risk for readmission. Specific patient level drivers will be listed at the bottom of the summary. The 30 day readmissions risk score is derived from an internally validated risk model which evaluates patient level characteristics, utilization history, medication orders and lab results up until the day of discharge. Patients with a score of 40 or above are considered highest risk for readmission. Specific patient level drivers will be listed at the bottom of the summary. Discharge Medications: Medication List START taking these medications aspirin, enteric coated 81 mg EC tablet Commonly known as: ASPIRIN, ENTERIC COATED Take 1 tablet by mouth two times a day for 21 days. oxyCODONE IR 5 mg immediate release tablet Commonly known as: ROXICODONE Take 1 tablet by mouth every 6 hours as needed for pain for up to 7 days. senna 8.6 mg Tab Commonly kno (more content not included)... Normal [facility] CONSULT PROGon 04-08-2024 CONSULT PROG HNO ID: [id number] Author: KITA SWAIN DO Service: Hospital Medicine Author Type: Physician Type: Consult Progress Note Filed: 04/08/2024 11:43 Note Text: DEPARTMENT OF HOSPITAL MEDICINE PROGRESS NOTE SERVICE DATE: 04/08/2024 SERVICE TIME: 9:05 AM Hospital Medicine/Primary Attending: Kita Swain DO NIGHT AND WEEKEND COVERAGE: [place] COVERAGE: After 7pm, please call cross cover pager #[phone] Subjective INTERVAL HPI: Pt seen and examined. EPIC reviewed. Sitting in chair. No cp or sob. Was lightheaded when he first got up but resolved after getting his bearings. Tolerating diet. Checked BP while in chair and 103/70. This is baseline for him. MEDICATIONS: Reviewed Objective PHYSICAL EXAM: BP 93/51 Pulse 55 Temp (Src) 98.1 (Oral) Resp 16 Ht 6' 1 (1.85m) Wt 215 lb 13.3 oz (97.9kg) SpO2 94% BMI 28.48 kg/(m2). O2 Therapy: Room Air Physical Exam Performed GENERAL: Alert, no distress, cooperative HEAD/SINUSES: No significant findings EYES: PERRLA, EOMI OROPHARYNX: Lips, mucosa, and tongue normal. Teeth and gums normal. Oropharynx normal. LUNGS: Lungs clear to auscultation, Good diaphragmatic excursion CARDIAC: Normal S1 and S2; no rubs, murmurs, or gallops ABDOMEN: Abdomen soft, non-tender, BS normal, No masses or organomegaly EXTREMITIES: haresh wrap on right leg NEURO: Grossly normal cognition, motor function, and cranial nerves III-XII Lines, Drains, and Airways Line Duration Peripheral 04/06/24 Left 20 Gauge 2 days Reviewed lines and needs to be continued: REASONS: Difficulty in obtaining/maintaining access DATA: Diagnostic tests reviewed for today's visit: Most recent labs and imaging results. Assessment/Plan R tibia fx s/p IMN tibia POD 1: per primary team. Preop EKG without ischemic changes. ADAIR: not on cpap. Monitor in post operative period. GERD: protonix 40 mg daily. Hyperglycemia: add A1C to labs. Monitor. Medication and Non-Pharmacologic VTE Prophylaxis/Anticoagulants Anticoagulant AND Antiplatelet Medications (From admission, onward) Start Dose Route Frequency Last Action Ordered Stop 04/08/24 0900 aspirin, enteric coated 81 mg tab(s) (Surgical Risk Categories) 81 mg ORAL 2 TIMES DAILY Ordered 04/07/24 1450 -- 04/07/24 1500 pneumatic compression stockings ([place]) 04/07/24 1500 activity - mobilize patient [place]) 04/06/24 1715 vte pharmacologic prophylaxis contraindicated ([place]) 04/06/24 171 pneumatic compression stockings ([place]) VTE Prophylaxis: as per primary team Disposition: To be determined Plan of care discussed with: Provider, RN, Patient SIGNATURE: Kita Swain DO PATIENT NAME: Andre Padron DATE: April 08, 2024 TIME: 9:05 AM etx [id number] Normal [facility] HbA1c (Bld)on 04-08-2024 Average glucose Estimated from glycated hemoglobin (Bld) [Mass/Vol] 103 mg/dL Normal [facility] Comment on above: Order Comment: Venus wren Type: BLOOD SPECIMENOrdering Facility: [facility] Address: [address] [place] [address] Result Comment: eAG: (Estimated average glucose) is a calculated value from HgbA1c and is agricultural sales representative of the average blood glucose level in the last 2-3 month period. Performed By: #### 5 8410-2 ####[facility] LABORATORYCLIA [id number] [place] [address] [place]#### 90196-6 ####[facility] LABCLIA [id number] [place] [address] [place] HbA1c (Bld) [Mass fraction] 5.2 % Normal 4.3-5.6 [facility] Comment on above: Order Comment: Venus wren Type: BLOOD SPECIMENOrdering Facility: [facility] Address: [address] [id number] Result Comment: [place] Diabetes Association guidelines indicate that patients with HgbA1c in the range 5.7-6.4% are at increased risk for development of diabetes, and intervention by lifestyle modification may be beneficial. HgbA1c greater or equal to 6.5% is considered diagnostic of diabetes. Performed By: #### 5 8410-2 ####[facility] LABORATORYCLIA [id number] [place] [address] [facility]#### 93230-0 ####[facility] LABCLIA [id number] [facility] [id number] [id number] [facility] THERAPY NTon 04-08-2024 THERAPY NT HNO ID: [id number] Author: NELI INGRAM, PT Service: Physical Therapy Author Type: Physical Therapist Type: Therapy (PT/OT/Speech/Resp) Filed: 04/08/2024 10:16 Note Text: Physical Therapy Evaluation Summary SERVICE DATE: 04/08/2024 SERVICE TIME: 914 to 937 ROOM: [place] [address] PT 6 Clicks Score: 22 DISCHARGE RECOMMENDATIONS Home Recommended Discharge Disposition Comments: with family assist. Issued crutches for homegoing Recommended Discharge Equipment: No equipment needs anticipated ASSESSMENT Response to Therapy Interventions: Good Participation in Activities PRECAUTIONS Fall Risk, Weight Bearing Restrictions Right Lower Extremity Weight Bearing Status: WBAT CURRENT HOSPITAL COURSE Struck in the knee from a piece of wood from table saw. 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 SUBJECTIVE Pt pleasant and agreeable to PT. THERAPY DIAGNOSIS Reduced mobility-other TREATMENT INTERVENTIONS Evaluation, Gait Training (29095) $ Evaluation-Moderate (99646) Billed Units: 1 unit Gait Training (41292) Treatment Minutes: 8 $ Gait Training (73656) Billed Units: 1 unit Crutch training for ambulation and stairs. Issued handout for reference. Timed Code Treatment (minutes): 8 Skilled Treatment Time (minutes): 23 TRAINING AND EDUCATION PROVIDED Anatomy and Impact on Deficits, Benefits of In-Hospital Mobility, Discharge Planning, Gait Pattern, Reduction of Deviations, Role of Physical Therapy, Standing Balance, Transfers, Precautions/Restrictions, Stair Navigation, Equipment THERAPEUTIC SKILLS USED Cues for Sequencing/Proper Technique for Activity, Cuing Tactile, Cuing Verbal, Movement Facilitation, Physical Assist FUNCTIONAL STATUS Bed Mobility Transfers Sit To Stand: Stand By Assistance Stand To Sit: Stand By Assistance Bed to Chair Gait Contact Guard Assistance, Additional Information edu and demonstrated proper sizing and use of crutches prior to mobility; cued for placement and sequencing in step to pattern, avoiding taking too large a step Gait Device: Crutch(es) General Deviations/Observations: Antalgic gait, Tila decreased, Step length decreased Gait Distance (feet): 50x2 Stairs Contact Guard Assistance, Additional Information Stairs Device: Crutch(es) Number of Stairs: 4 cued for proper sequence for ascent and descent, pt demonstrates good carryover ROM ROM Limitation Comments: minimal AROM right knee, limited by pain STRENGTH Strength Limitation Comments: right knee 2/5 limited by pain BALANCE Static Standing Balance: Good Dynamic Standing Balance: Fair GOALS Able to Perform HEP with: Independent Transfer Supine to/from Sit with: Independent Transfer Sit to/from Stand with: Independent Ambulate with: Modified Independent Distance: 100 Device: Crutch(es) Ambulate Up and Down Steps with: Supervision Number of Steps: 4 Device: Crutch(es) Rehab Potential: Excellent PLAN PT Frequency: 3 Times Per Week (1-3) Treatment Interventions: Education, Self Care / Home Management, Joint Mobility, Strengthening, Functional Mobility Training, Balance Training, Neuromuscular Re-education SIGNATURE: Neli Ingram, PT PATIENT NAME: Andre Padron DATE: April 08, 2024 TIME: 10:16 AM Normal [facility] THERAPY NT HNO ID: [id number] Author: MICHAEL VÁZQUEZ OTR/L Service: Occupational Therapy Author Type: Occupational Therapist Type: Therapy (PT/OT/Speech/Resp) Filed: 04/08/2024 09:59 Note Text: Occupational Therapy Evaluation Summary SERVICE DATE: 04/08/2024 SERVICE TIME: 844 to 0914 ROOM: [id number] OT 6 Clicks Score: 20 DISCHARGE RECOMMENDATIONS Home Anticipated Discharge Needs: Physical Assist at Home Physical Assist at Home for: Laundry, Cleaning, Meals, Shopping, Transportation ASSESSMENT Response to Therapy Interventions: Good Participation in Activities Patient doing well overall and is okay for safe home-going. PRECAUTIONS Fall Risk, Weight Bearing Restrictions Right Lower Extremity Weight Bearing Status: WBAT CURRENT HOSPITAL COURSE Struk in the knee from a piece of wood from table saw. 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 Baseline Cognition: Oriented to self, Oriented to place, Oriented to time, Oriented to situation SUBJECTIVE agreeable to session COGNITION Responsiveness: Alert Follows Commands: 2-step Commands Executive Function Deficits: Safety Awareness THERAPY DIAGNOSIS Reduced mobility-other, Decreased activities of daily living (ADL), Muscle Weakness (generalized), Unsteadiness on feet, General symptoms and signs-other TREATMENT INTERVENTIONS Evaluation, Self Chcf Management (30375) Timed Code Treatment (minutes): 10 Skilled Treatment Time (minutes): 23 $ Evaluation - Moderate (65295) Billed Units: 1 unit Self Chcf Management (06787) Treatment Minutes: 10 $ Self Chcf Management (65120) Billed Units: 1 unit Educated and demonstrated proper technique to get in/out of car. TRAINING AND EDUCATION PROVIDED Bed Mobility, Benefits of In-Hospital Mobility, Discharge Planning, Disease Specific Education, Functional Mobility Involving ADLs, Role of Occupational Therapy, Standing Balance to Improve [place] with ADLs/Self-Care, Transfer - Sit to Stand, Transfer - Toilet/Commode, Transfer - Tub Shower, Energy Conservation, Assistive Device Use, Lower Extremity Dressing THERAPEUTIC SKILLS USED Activity Dosing, Cues for Sequencing/Proper Technique for Activity, Cuing Tactile, Cuing Verbal, Cuing Visual FUNCTIONAL STATUS Activities of Daily Living Assist Level Additional Information Feeding Set Up Grooming Stand By Assistance Bathing Upper Body Stand By Assistance Bathing Lower Body Minimal Assistance Educated on proper bathing technique following surgery. Dressing Upper Body Stand By Assistance Dressing Lower Body Minimal Assistance Instructed to dress surgical leg first. Toileting Contact Guard Assistance Mobility Assist Level Additional Information Bed Mobility Supine To Sit: Contact Guard Assistance Sit to Stand Contact Guard Assistance Stand to Sit Contact Guard Assistance Bed to Chair Toilet/Commode Contact Guard Assistance Min direction for proper sequence and technique. Had conversation about the possible need for an elevated toilet seat. Shower Discussed the use and benefit of a shower seat. Functional Mobility Contact Guard Assistance, Additional Information Functional Mobility Device: Wheeled Walker functional mobility to bathroom and back STRENGTH Right Upper Extremity Strength Comments: 4/5 Left Upper Extremity Strength Comments: 4/5 BALANCE Static Standing Balance: Good Dynamic Standing Balance: Fair GOALS Grooming with: Independent Upper Body Bathing with: Independent Upper Body Dressing with: Independent Lower Body Bathing with: Independent Lower Body Dressing with: Independent Toilet Hygiene with: Independent Chair Transfer with: Independent Toilet Transfer with: Independent Tub Transfer with: Independent Car Transfer with: Independent Tolerate (minutes of functional activity): 30 Functional Activity with: Independent Demonstrate Competence with Education with: Independent (safety/fall prevention) Rehab Potential: Good PLAN OT Frequency: 1 Time Per Week Treatment Interventions: Education, Self Care/Home Management, Energy Conservation Training, Functional Mobility Training, Balance Training Plan for Next Visit: Bathing Training, Dressing Training SIGNATURE: JACLYN House/Giovani PATIENT NAME: Andre Padron DATE: April 08, 2024 TIME: 9:55 AM Normal [facility] ANES POSTPROC EVALon 04-07-2 024 ANES POSTPROC EVAL HNO ID: [id number] Author: RUDDY HENSON MD Service: Anesthesiology Author Type: Anesthesiologist Type: Anesthesia Postprocedure Evaluation Filed: 04/07/2024 20:20 Note Text: POST ANESTHESIA EVALUATION NOTE : 1960 Procedure Summary Date: 04/07/24 Room / Location: [place] OR / [place] Anesthesia Start: 1110 Anesthesia Stop: 1340 Procedure: INSERTION NAIL / NOHEMI INTRAMEDULLARY TIBIA (Right: Tibia) Diagnosis: Fracture of tibia, shaft (Fracture of tibia, shaft [S82.209A]) Surgeons: Huseyin Stout MD Responsible Provider: Ruddy Henson MD Anesthesia Type: general ASA Status: 2 Anesthesia Type: general Airway Type: ETT Last Vitals Vitals Value Taken Time BP 97/52 04/07/24 1430 Temp 36 ?C (96.8 ?F) 04/07/24 1430 HR SpO2 61 04/07/24 1437 Resp 19 04/07/24 1439 SpO2 98 % 04/07/24 1437 Vitals shown include unfiled device data. Post Anesthesia Patient Status Patient Evaluation: PACU. PACU/ICU Patient Condition: stable. Anticipated Disposition: inpatient floor planned admission. Neurological Status: aware and responsive. Pulmonary Status: breathing comfortably on room air Airway Control: returned to baseline unsupported. Cardiovascular Status: stable. Pain Management: clinically adequate Postoperative Hydration: acceptable. Intraoperative Events: no significant anesthesia events Post Operative Nausea/Vomiting Status: no significant post operative nausea or vomiting Recommendation: further care per PACU/ICU/floor team. Anesthesia Observations No Documentation SIGNATURE: Ruddy Hneson MD PATIENT NAME: Andre Padron DATE: April 07, 2024 TIME: 8:20 PM CSN: [id number] Normal [facility] ANES PRE-OPon 04-07-2024 ANES PRE-OP HNO ID: [id number] Author: RUDDY HENSON MD Service: Anesthesiology Author Type: Anesthesiologist Type: Anesthesia Preprocedure Evaluation Filed: 04/07/2024 10:59 Note Text: ANESTHESIOLOGY DAY OF SURGERY NOTE : 1960 Procedure Information Date/Time: 04/07/24 1130 Procedures: APPLICATION EXTERNAL FIXATOR TIBIA (Right: Tibia) INSERTION NAIL / NOHEMI INTRAMEDULLARY TIBIA (Right: Tibia) Location: [place] OR / [place] Surgeons: Huseyin Stout MD Estimated body mass index is 28.53 kg/m? as calculated from the following: Height as of this encounter: 185.4 cm (6' 1). Weight as of this encounter: 98.1 kg (216 lb 4.3 oz). Most recent hematocrit and potassium results: Hematocrit 37.4 04/06/2024 Potassium 3.7 04/07/2024 Relevant Problems Podiatry (+) Closed complex fracture of right tibia I - PHYSICAL EVALUATION AIRWAY Patient intubated: No. Tracheostomy tube not present Mallampati: II. TM distance: >3 FB. Neck ROM: full ROM without neurological symptoms. Mouth opening: adequate. Short neck: no. Thick neck: no Navarro present: yes DENTAL Dental findings: teeth intact. Additional exam findings: no II - ANESTHESIA PLAN ASA Score: 2 Anesthetic Plan: general Airway type: ETT The patient is not a current smoker. NPO Status: adequate Beta Paz Monitoring Plan Monitoring plan: standard ASA. Post Procedure Analgesic Plan Postoperative analgesic plan: multimodal analgesia. Informed Consent Anesthetic risks, benefits, alternatives, personnel and consent discussed: yes. Patient / Responsible Constitution Party agrees to proceed: yes Patient / Surrogate agrees to blood products: Yes Significant changes in the patient condition since the History and Physical, not otherwise documented in primary service progress note: no. Potential Anesthesia issues that may suggest increased risk of complications or contraindication to planned procedure: none. Vitals Value Taken Time BP 117/76 04/07/24 1033 Pulse 94 04/07/24 1033 Resp 16 04/07/24 1033 Temp 36.2 ?C (97.2 ?F) 04/07/24 1033 SpO2 94 % 04/07/24 1033 Facility-Administered Medications as of 04/07/2024 Medication Dose Route Frequency - [Held on Transfer] pantoprazole DR 40 mg tab(s) (PROTONIX) 40 mg ORAL DAILY - [Held on Transfer] gabapentin 600 mg cap(s) (NEURONTIN) 600 mg ORAL AT BEDTIME - [Held on Transfer] NaCl 0.9% iv flush bag 20 mL INTRAVENOUS PRN - [Held on Transfer] lactated ringers iv infusion 125 mL/hr INTRAVENOUS CONTINUOUS - [Held on Transfer] morphine 2 mg injection 2 mg INTRAVENOUS q 2 H PRN - [Held on Transfer] ondansetron (PF) 4 mg injection (ZOFRAN) 4 mg INTRAVENOUS q 6 H PRN - [Held on Transfer] melatonin 3 mg tab(s) 3 mg ORAL AT BEDTIME PRN - [Held on Transfer] acetaminophen 1,000 mg tab(s) (TYLENOL) 1,000 mg ORAL q 8 H - [Held on Transfer] oxyCODONE IR 5-10 mg tab(s) (ROXICODONE) 5-10 mg ORAL q 4 H PRN Outpatient Medications as of 04/07/2024 Medication Sig - gabapentin (NEURONTIN) 600 mg tablet TAKE ONE HALF TABLET BY MOUTH AT SUPPER AND ONE TABLET AT BEDTIME DIRECTED - temazepam (RESTORIL) 15 mg cap Take 15 mg by mouth at bedtime as needed. - pantoprazole DR (PROTONIX) 40 mg tablet Take 40 mg by mouth once daily. I have interviewed and examined the patient. I have reviewed the medical record and/or the pre-anesthesia evaluation, pertinent labs, and test results. This contains updated information obtained within 48 hours of Surgery/Procedure. SIGNATURE: Ruddy Henson MD PATIENT NAME: Andre Padron DATE: April 07, 2024 TIME: 10:40 AM CSN: [id number] [facility] BRIEF OP NOTon 04-07-2024 BRIEF OP NOT HNO ID: [id number] Author: HUSEYIN STOUT MD Service: Orthopaedic Surgery Author Type: Physician Type: Brief Op Note Filed: 04/07/2024 13:44 Note Text: BRIEF OPERATIVE / PROCEDURE NOTE LOG ID: [id number] Surgery/Procedure Date: 04/07/2024 Incision/Procedure Start Time: 11:41 AM Incision Close/Procedure End Time: 1:24 PM Surgeon(s)/Proceduralist(s) and Sales Project Manager(s): Surgeon(s) and Role: * Huseyin Stout MD - Primary * [place] DO - Resident - Assisting No Additional Staff Procedure(s): Procedure(s) (LRB): INSERTION NAIL / NOHEMI INTRAMEDULLARY TIBIA (Right) Anesthesia: General Peripheral Block Type: None Approach: suprapatellar Estimated Blood Loss: 100 mls Specimens: None Complications: None Closure Technique: Primary Total Joint Arthroplasty (TJA) Surgical Risk Procedure: Not on file Date assessed: Not on file No data to display Implant: Implant Name Type Inv. Item Serial No. Sales Expert Lot No. LRB No. Used Action LOCKING SCREW FOR IM NAIL XL25 5MM X 52MM STRL Screw [employer] Right 1 Wasted TIBIAL NAIL-ADVANCED 10MM X 375MM STERILE Nail Recovers [facility] [id number] Right 1 Implanted LOCKING SCREW FOR IM NAIL XL25 5MM X 50MM STRL Screw Recovers [facility] Right 1 Implanted LOCKING SCREW FOR IM NAIL XL25 5MM X 40MM STRL Screw Recovers [facility] Right 1 Implanted LOCKING SCREW FOR IM NAIL XL25 5MM X 70MM STRL Screw Recovers [facility] Right 1 Implanted LOW PROFILE LOCKING SCREW FOR IM NAIL XL25 5MM X 32MM STRL Screw [employer] SYNTHES [facility] Right 1 Implanted Pre-Op/Pre-Procedure Diagnosis: Right proximal tibial shaft fracture Post-Op/Post-Procedure Diagnosis: SAME Weight Bearing Status: Full Weight Bearing SIGNATURE: Huseyin Stout MD PATIENT NAME: Andre Padron DATE: April 07, 2024 TIME: 1:43 PM Normal [facility] Basic metabolic 2000 panelon 04-07-2024 Anion gap [Moles/Vol] 7 mmol/L Low 8-15 [facility] Comment on above: Order Comment: Speci men Type: BLOOD SPECIMENOrdering Facility: [facility] Address: [address] [place] [address] Performed By: #### 2 4321-2 ####[facility] LABORATORYCLIA [id number] [place] [address] [place] Calcium [Mass/Vol] 8.7 mg/dL Normal 8.5-10.2 [facility] Comment on above: Order Comment: Speci men Type: BLOOD SPECIMENOrdering Facility: [facility] Address: [address] [place] [address] Performed By: #### 2 4321-2 ####[facility] LABORATORYCLIA [id number] [place] [address] [place] Chloride [Moles/Vol] 103 mmol/L Normal 98-107 [facility] Comment on above: Order Comment: Speci men Type: BLOOD SPECIMENOrdering Facility: [facility] Address: [address] [place] [address] Performed By: #### 2 4321-2 ####[facility] LAB[facility]ATORYCLIA [id number] [place] [address] [place] CO2 [Moles/Vol] 30 mmol/L Normal 22-30 [facility] Comment on above: Order Comment: Speci men Type: BLOOD SPECIMENOrdering Facility: [facility] Address: [address] [place] [address] Performed By: #### 2 4321-2 ####[facility] LABORATORYCLIA [id number] [address] OF [facility] Creatinine [Mass/Vol] 0.77 mg/dL Normal 0.73-1.22 [facility] Comment on above: Order Comment: Venus wren Type: BLOOD SPECIMENOrdering Facility: [facility] Address: [address] [place] [address] Performed By: #### 2 4321-2 ####[facility] LABORATORYCLIA [id number] [address] Creatinine and Glomerular filtration rate.predicted panel (S/P/Bld) 101 mL/min/1.73m??? Normal >=60 [facility] Comment on above: Order Comment: Venus wren Type: BLOOD SPECIMENOrdering Facility: [facility] Address: [address] [place] [address] Result Comment: Ashlee mated Glomerular Filtration Rate (eGFR) is calculated using the 2020 CKD-EPI creatinine equation. This equation utilizes serum creatinine, sex, and age as parameters. The creatinine assay has traceable calibration to isotope dilution-mass spectrometry. Refer to KDIGO guidelines for clinical interpretation. In patients with unstable renal function, e.g. those with acute kidney injury, the eGFR may not accurately reflect actual GFR. Performed By: #### 2 4321-2 ####[facility] LABORATORYCLIA [id number] [address] [place] Glucose [Mass/Vol] 101 mg/dL High 74-99 [facility] Comment on above: Order Comment: Venus wren Type: BLOOD SPECIMENOrdering Facility: [facility] Address: [address] [place] [address] Result Comment: The [place] Diabetes Association (ADA) provides guidance for cutoff values for fasting glucose and random glucose. The ADA defines fasting as no caloric intake for at least 8 hours. Fasting plasma glucose results between 100 to 125 mg/dL indicate increased risk for diabetes (prediabetes). Fasting plasma glucose results greater than or equal to 126 mg/dL meet the criteria for diagnosis of diabetes. In the absence of unequivocal hyperglycemia, results should be confirmed by repeat testing. In a patient with classic symptoms of hyperglycemia or hyperglycemic crisis, random plasma glucose results greater than or equal to 200 mg/dL meet the criteria for diagnosis of diabetes. Reference: Standards of Medical Care in Diabetes 2016, [place] Diabetes Association. Diabetes Care. 2016.39(Suppl 1). Performed By: #### 2 4321-2 ####[facility] LABORATORYCLIA [id number] [address] [place] [facility] Potassium [Moles/Vol] 3.7 mmol/L Normal 3.7-5.1 [facility] Comment on above: Order Comment: Speci men Type: BLOOD SPECIMENOrdering Facility: [facility] Address: [address] [place] [address] Performed By: #### 2 4321-2 ####[facility] LABORATORYCLIA [id number] [address] Sodium [Moles/Vol] 140 mmol/L Normal 136-144 [facility] Comment on above: Order Comment: Speci men Type: BLOOD SPECIMENOrdering Facility: [facility] Address: [address] [place] [address] Performed By: #### 2 4321-2 ####[facility] LABORATORYCLIA [id number] [address] [place] [facility] Urea nitrogen [Mass/Vol] 13 mg/dL Normal 9-24 [facility] Comment on above: Order Comment: Speci men Type: BLOOD SPECIMENOrdering Facility: [facility] Address: [address] [place] [address] Performed By: #### 2 4321-2 ####[facility] LABORATORYCLIA [id number] [address] [place] [facility] CBC W Auto Differential pane l (Bld)on 04-07-2024 Basophils (Bld) [#/Vol] 10*3/uL Normal <0.11 [facility] Comment on above: Order Comment: Speci men Type: BLOOD SPECIMENOrdering Facility: [facility] Address: [facility] [place] [address] Performed By: #### 5 7021-8 ####[facility] LABORATORYCLIA [id number] [address] Basophils/100 WBC (Bld) 0.2 % Normal [facility] Comment on above: Order Comment: Speci men Type: BLOOD SPECIMENOrdering Facility: [facility] Address: [address] [place] [address] Performed By: #### 5 7021-8 ####[facility] LABORATORYCLIA [id number] [address] [place] Differential cell count method Nom (Bld) Auto Normal [facility] Comment on above: Order Comment: Speci men Type: BLOOD SPECIMENOrdering Facility: [facility] Address: [address] [place] [address] Performed By: #### 5 7021-8 ####[facility] LABORATORYCLIA [id number] [address] [place] Eosinophils (Bld) [#/Vol] 10*3/uL Normal <0.46 [facility] Comment on above: Order Comment: Speci men Type: BLOOD SPECIMENOrdering Facility: [facility] Address: [address] [place] [address] Performed By: #### 5 7021-8 ####[facility] LABORATORYCLIA [id number] [address] [place] [facility] Eosinophils/100 WBC (Bld) 0.0 % Normal [facility] Comment on above: Order Comment: Speci men Type: BLOOD SPECIMENOrdering Facility: [facility] Address: [address] [place] [address] Performed By: #### 5 7021-8 ####[facility] LABORATORYCLIA [id number] [address] [place] Erythrocyte distribution width (RBC) [Ratio] 12.8 % Normal 11.5-15.0 [facility] Comment on above: Order Comment: Speci men Type: BLOOD SPECIMENOrdering Facility: [facility] Address: [address] [place] [address] Performed By: #### 5 7021-8 ####[facility] LABORATORYCLIA [id number] [place] [address] [place] Hematocrit (Bld) [Volume fraction] 34.8 % Low 39.0-51.0 [facility] Comment on above: Order Comment: Speci men Type: BLOOD SPECIMENOrdering Facility: [facility] Address: [address] [place] [address] Performed By: #### 5 7021-8 ####[facility] LABORATORYCLIA [id number] [place] [address] [place] Hemoglobin (Bld) [Mass/Vol] 11.9 g/dL Low 13.0-17.0 [facility] Comment on above: Order Comment: Speci men Type: BLOOD SPECIMENOrdering Facility: [facility] Address: [address] [place] [address] Performed By: #### 5 7021-8 ####[facility] LABORATORYCLIA [id number] [address] [place] Immature granulocytes (Bld) [#/Vol] 10*3/uL Normal <0.10 [facility] Comment on above: Order Comment: Speci men Type: BLOOD SPECIMENOrdering Facility: [facility] Address: [address] [place] [address] Performed By: #### 5 7021-8 ####[facility] LABORATORYCLIA [id number] [address] [place] Immature granulocytes/100 WBC (Bld) 0.2 % Normal [facility] Comment on above: Order Comment: Speci men Type: BLOOD SPECIMENOrdering Facility: [facility] Address: [address] [place] [address] Performed By: #### 5 7021-8 ####[facility] LABORATORYCLIA [id number] [place] [address] [place] Lymphocytes (Bld) [#/Vol] 0.35 10*3/uL Low 1.00-4.00 [facility] Comment on above: Order Comment: Speci men Type: BLOOD SPECIMENOrdering Facility: [facility] Address: [address] [place] [address] Performed By: #### 5 7021-8 ####[facility] LABORATORYCLIA [id number] [address] [place] [facility] Lymphocytes/100 WBC (Bld) 3.7 % Normal [facility] Comment on above: Order Comment: Speci men Type: BLOOD SPECIMENOrdering Facility: [facility] Address: [address] [place] [address] Performed By: #### 5 7021-8 ####[facility] LABORATORYCLIA [id number] [address] MCH (RBC) [Entitic mass] 31.1 pg Normal 26.0-34.0 [facility] Comment on above: Order Comment: Speci men Type: BLOOD SPECIMENOrdering Facility: [facility] Address: [address] [place] [address] Performed By: #### 5 7021-8 ####[facility] LABORATORYCLIA [id number] [address] MCHC (RBC) [Mass/Vol] 34.2 g/dL Normal 30.5-36.0 [facility] Comment on above: Order Comment: Speci men Type: BLOOD SPECIMENOrdering Facility: [facility] Address: [address] [place] [address] Performed By: #### 5 7021-8 ####[facility] LABORATORYCLIA [id number] [address] MCV (RBC) [Entitic vol] 90.9 fL Normal 80.0-100.0 [facility] Comment on above: Order Comment: Speci men Type: BLOOD SPECIMENOrdering Facility: [facility] Address: [address] [place] [address] Performed By: #### 5 7021-8 ####[facility] LABORATORYCLIA [id number] [address] Monocytes (Bld) [#/Vol] 0.07 10*3/uL Normal <0.87 [facility] Comment on above: Order Comment: Speci men Type: BLOOD SPECIMENOrdering Facility: [facility] Address: [address] [place] [address] Performed By: #### 5 7021-8 ####[facility] LABORATORYCLIA [id number] [place] [id number] [place] Monocytes/100 WBC (Bld) 0.7 % Normal [facility] Comment on above: Order Comment: Speci men Type: BLOOD SPECIMENOrdering Facility: [facility] Address: [address] [place] [address] Performed By: #### 5 7021-8 ####[facility] LABORATORYCLIA [id number] [place] [address] [place] Neutrophils (Bld) [#/Vol] 8.92 10*3/uL High 1.45-7.50 [facility] Comment on above: Order Comment: Speci men Type: BLOOD SPECIMENOrdering Facility: [facility] Address: [address] [place] [address] Performed By: #### 5 7021-8 ####[facility] LABORATORYCLIA [id number] [address] [place] Neutrophils/100 WBC (Bld) 95.2 % Normal [facility] Comment on above: Order Comment: Speci men Type: BLOOD SPECIMENOrdering Facility: [facility] Address: [address] [place] [address] Performed By: #### 5 7021-8 ####[facility] LABORATORYCLIA [id number] [place] [address] [place] Nucleated RBC (Bld) [#/Vol] 10*3/uL Normal <0.01 [facility] Comment on above: Order Comment: Speci men Type: BLOOD SPECIMENOrdering Facility: [facility] Address: [address] [place] [address] Performed By: #### 5 7021-8 ####[facility] LABORATORYCLIA [id number] [place] [address] [place] Nucleated RBC/100 WBC (Bld) [Ratio] 0.0 /100 WBC Normal [facility] Comment on above: Order Comment: Speci men Type: BLOOD SPECIMENOrdering Facility: [facility] Address: [address] [place] [address] Performed By: #### 5 7021-8 ####[facility] LABORATORYCLIA [id number] [address] [place] Platelet mean volume (Bld) [Entitic vol] 8.8 fL Low 9.0-12.7 [facility] Comment on above: Order Comment: Speci men Type: BLOOD SPECIMENOrdering Facility: [facility] Address: [address] [place] [address] Performed By: #### 5 7021-8 ####[facility] LABORATORYCLIA [id number] [place] [address] [place] Platelets (Bld) [#/Vol] 224 10*3/uL Normal 150-400 [facility] Comment on above: Order Comment: Speci men Type: BLOOD SPECIMENOrdering Facility: [facility] Address: [address] [place] [address] Performed By: #### 5 7021-8 ####[facility] LABORATORYCLIA [id number] [place] [address] [place] RBC (Bld) [#/Vol] 3.83 10*6/uL Low 4.20-6.00 [facility] Comment on above: Order Comment: Speci men Type: BLOOD SPECIMENOrdering Facility: [facility] Address: [address] [place] [address] Performed By: #### 5 7021-8 ####[facility] LABORATORYCLIA [id number] [address] [place] WBC (Bld) [#/Vol] 9.38 10*3/uL Normal 3.70-11.00 [facility] Comment on above: Order Comment: Speci men Type: BLOOD SPECIMENOrdering Facility: [facility] Address: [address] [place] [address] Performed By: #### 5 7021-8 ####[facility] LABORATORYCLIA [id number] [place] [address] [place] CONSULT PROGon 04-07-2024 CONSULT PROG HNO ID: [id number] Author: KITA SWAIN DO Service: Hospital Medicine Author Type: Physician Type: Consult Progress Note Filed: 04/07/2024 13:56 Note Text: DEPARTMENT OF HOSPITAL MEDICINE PROGRESS NOTE SERVICE DATE: 04/07/2024 SERVICE TIME: 1:50 PM Hospital Medicine/Primary Attending: Kita Swain DO NIGHT AND WEEKEND COVERAGE: [facility] COVERAGE: After 7pm, please call cross cover pager #[phone] Subjective INTERVAL HPI: Pt seen and examined. EPIC reviewed. See in pacu post op. Groggy as he just got pain meds. No cp or sob. Just pain in his leg. MEDICATIONS: Reviewed Objective PHYSICAL EXAM: BP 94/51 Pulse 58 Temp (Src) 98.2 (Oral) Resp 16 Ht 6' 1 (1.85m) Wt 216 lb 4.3 oz (98.1kg) SpO2 97% BMI 28.54 kg/(m2). O2 Therapy: Room Air Physical Exam Performed GENERAL: Alert, No Distress, groggy but answers all questions appropriately HEAD/SINUSES: No significant findings EYES: PERRLA, EOMI LUNGS: Lungs clear to auscultation, Good diaphragmatic excursion CARDIAC: Normal S1 and S2; no rubs, murmurs, or gallops ABDOMEN: Abdomen soft, non-tender, BS normal, No masses or organomegaly EXTREMITIES: RLE with haresh wrap in place. LLE wo edema Lines, Drains, and Airways Line Duration Peripheral 04/06/24 Left 20 Gauge 1 day Reviewed lines and needs to be continued: REASONS: Difficulty in obtaining/maintaining access DATA: Diagnostic tests reviewed for today's visit: Most recent labs and imaging results. Assessment/Plan R tibia fx s/p IMN tibia POD 0: per primary team. Preop EKG without ischemic changes. ADAIR: not on cpap. Monitor in post operative period. GERD: protonix 40 mg daily. Medication and Non-Pharmacologic VTE Prophylaxis/Anticoagulants 04/06/241714 vte pharmacologic prophylaxis contraindicated (la,oh) 04/06/241714 pneumatic compression stockings (la,il) VTE Prophylaxis: as per primary team Disposition: To be determined Plan of care discussed with: Provider, RN, Patient SIGNATURE: Kita Swain DO PATIENT NAME: Andre Padron DATE: April 07, 2024 TIME: 1:50 PM etx [id number] Normal [facility] OPERATIVE NOon 04-07-2024 OPERATIVE NO HNO ID: [id number] Author: HUSEYIN STOUT MD Service: Orthopaedic Surgery Author Type: Physician Type: Operative Report Filed: 04/08/2024 06:58 Note Text: OPERATIVE REPORT LOG ID: [id number] Surgery/Procedure Date: 04/07/2024 Incision/Procedure Start Time: 11:41 AM Incision Close/Procedure End Time: 1:24 PM Surgeon(s)/Proceduralist(s) and Sales Project Manager(s): Surgeon(s) and Role: * Huseyin Stout MD - Primary * [place] DO - Resident - Assisting No Additional Staff Procedure(s): Procedure(s) (LRB): INSERTION NAIL / NOHEMI INTRAMEDULLARY TIBIA (Right) Anesthesia: General Procedure Details: Patient was brought to the operative theater where general endotracheal anesthesia was administered. The right leg was identified and prepped and draped free in a sterile orthopedic fashion. Timeout was performed. We made a midline incision proximal to the patella. Sharp dissection was carried out down to the quadriceps tendon. The tendon was then incised longitudinally in a full-thickness fashion with a knife. Digital dissection was performed in the suprapatellar pouch until we could mobilize under the patella itself. The starting trocar for the suprapatellar nail was then placed under the patella and centered on the tibia proximally. Guidepin was then placed and checked with the C arm in the AP and lateral planes. Once our starting point was established the opening reamer was then used. Ball-tipped guide nohemi was then manipulated down across the fracture site. We then reamed until we achieve cortical chatter. To maintain the reduction manually as the fracture wanted to fall into slight varus. We overreamed by 1-1/2. Measured our nail and placed it. The fracture maintained good alignment. Proximal distal locking screws were then placed. Final position of the implant and fracture were checked in the AP lateral planes and found to be satisfactory. The stab wounds were irrigated. Closed with 2-0 Vicryl and vonda. The arthrotomy was irrigated with saline and Betadine. The quadriceps tendon was then closed with #2 Ethibond sutures. Layered closure performed with Vicryl and then Monocryl for skin followed by Steri-Strips. Mepilex dressings were applied. The patient was then awakened and transferred to the recovery room in satisfactory condition having taught the procedure well. Ancef was given preoperatively as I by prophylaxis. Pre-Op/Pre-Procedure Diagnosis: Right Tibial shaft fracture Post-Op/Post-Procedure Diagnosis: SAME Estimated Blood Loss: 100 mls Specimens: None Implant: Implant Name Type Inv. Item Serial No. Sales Expert Lot No. LRB No. Used Action LOCKING SCREW FOR IM NAIL XL25 5MM X 52MM STRL Screw [employer] [facility] Right 1 Wasted TIBIAL NAIL-ADVANCED 10MM X 375MM STERILE Nail Compete [facility] [id number] Right 1 Implanted LOCKING SCREW FOR IM NAIL XL25 5MM X 50MM STRL Screw [employer] [facility] Right 1 Implanted LOCKING SCREW FOR IM NAIL XL25 5MM X 40MM STRL Screw [employer] [facility] Right 1 Implanted LOCKING SCREW FOR IM NAIL XL25 5MM X 70MM STRL Screw [employer] [facility] Right 1 Implanted LOW PROFILE LOCKING SCREW FOR IM NAIL XL25 5MM X 32MM STRL Screw [employer] [facility] Right 1 Implanted Complications: None Weight Bearing Status: Full Weight Bearing Participation in Procedure: I/primary surgeon/proceduralist performed the procedure with assistance. SIGNATURE: Huseyin Stout MD PATIENT NAME: Andre Padron DATE: April 08, 2024 TIME: 6:53 AM Normal [facility] TYPE + SCREENon 04-07-2024 ABO AB Normal [facility] Comment on above: Order Comment: Speci men Type: BLOOD SPECIMENOrdering Facility: [facility] Address: [address] [place] [address] Performed By: #### T SCR ####[facility] BLOOD BANKCLIA [id number] [address] [place] HISTORICAL AB SCR STATUS Negative Normal [facility] Comment on above: Order Comment: Speci men Type: BLOOD SPECIMENOrdering Facility: [facility] Address: [address] [place] [address] Performed By: #### T SCR ####[facility] BLOOD BANKCLIA [id number] [place] [address] [facility] [place] Rh Nom (Bld) Positive Normal [facility] Comment on above: Order Comment: Speci men Type: BLOOD SPECIMENOrdering Facility: [facility] Address: [address] [place] [address] Performed By: #### T SCR ####[facility] BLOOD BANKCLIA [id number] [place] [address] [facility] TYPE AND SCREEN EXPIRATION 04/10/2024 23:59 Normal [facility] Comment on above: Order Comment: Speci men Type: BLOOD SPECIMENOrdering Facility: [facility] Address: [address] [place] [address] Performed By: #### T SCR ####[facility] BLOOD BANKCLIA [id number] [place] [address] [facility] XR TIBIA FIBULA 2V AP/LAT RT on 04-07-2024 XR TIBIA FIBULA 2V AP/LAT RT * * *Final Report* * * DATE OF EXAM: Apr 07 2024 2:47PM [id number] - XR TIBIA FIBULA 2V AP/LAT RT / PROCEDURE REASON: Fracture / Dislocation * * * * Physician Interpretation * * * * EXAM TITLE: XR TIBIA FIBULA 2V AP/LAT RT DATE: 04/07/2024 2:52 PM INDICATION: Postoperative assessment COMPARISON: None. FINDINGS: An intramedullary nohemi transfixes comminuted fractures of the proximal tibia. Fracture fragment alignment is near anatomic. Small amount of gas is noted in the knee joint space. No additional fractures or dislocations. IMPRESSION: Satisfactory postoperative appearance. Doctor Of Audiology: PSCB Transcribe Date/Time: Apr 07 2024 2:52P Dictated by : AMAURY LEHMAN MD This examination was interpreted and the report reviewed and electronically signed by: AMAURY LEHMAN MD on Apr 07 2024 2:53PM EST [id number] Normal [facility] XR TIBIA FIBULA 2V AP/LAT RT * * *Final Report* * * DATE OF EXAM: Apr 07 2024 1:16PM [id number] - XR TIBIA FIBULA 2V AP/LAT RT / PROCEDURE REASON: NAIL AND NOHEMI * * * * Physician Interpretation * * * * INTRAOPERATIVE FLUOROSCOPY HISTORY: NAIL AND NOHEMI COMPARISON: None TECHNIQUE: Fluoroscopic imaging was provided for procedure localization. Fluoroscopic Radiation Summary: Plane A, Air Kerma: 7.7 mGy Dose Area Product (DAP): Fluoro time: 2:12 min:sec RESULT: See impression IMPRESSION: Fluoroscopy was used in the operating room for procedural guidance during ORIF of comminuted proximal right tibial fracture. 7 portable fluoroscopic spot films were obtained. Study was performed by Dr. HUSEYIN STOUT. Recommend correlation with real-time interoperative findings and procedure note. Doctor Of Audiology: PSCB Transcribe Date/Time: Apr 07 2024 4:47P Dictated by : STEPHANIE MACK MD This examination was interpreted and the report reviewed and electronically signed by: STEPHANIE MACK MD on Apr 07 2024 4:47PM EST [id number] Normal [facility] CBC W Auto Differential pane l (Bld)on 04-06-2024 Basophils (Bld) [#/Vol] 0.05 10*3/uL Normal <0.11 [facility] Comment on above: Order Comment: Speci men Type: BLOOD SPECIMENOrdering Facility: [facility] Address: [address] [place] [address] Performed By: #### 5 7021-8 ####[facility] LABORATORYCLIA [id number] [place] [address] [place] Basophils/100 WBC (Bld) 0.5 % Normal [facility] Comment on above: Order Comment: Speci men Type: BLOOD SPECIMENOrdering Facility: [facility] Address: [address] [place] [address] Performed By: #### 5 7021-8 ####[facility] LABORATORYCLIA [id number] [place] [address] [place] Differential cell count method Nom (Bld) Auto Normal [facility] Comment on above: Order Comment: Speci men Type: BLOOD SPECIMENOrdering Facility: [facility] Address: [address] [place] [address] Performed By: #### 5 7021-8 ####[facility] LABORATORYCLIA [id number] [address] [place] Eosinophils (Bld) [#/Vol] 0.12 10*3/uL Normal <0.46 [facility] Comment on above: Order Comment: Speci men Type: BLOOD SPECIMENOrdering Facility: [facility] Address: [address] [place] [address] Performed By: #### 5 7021-8 ####[facility] LABORATORYCLIA [id number] [address] Eosinophils/100 WBC (Bld) 1.3 % Normal [facility] Comment on above: Order Comment: Speci men Type: BLOOD SPECIMENOrdering Facility: [facility] Address: [address] [place] [address] Performed By: #### 5 7021-8 ####[facility] LABORATORYCLIA [id number] [address] Erythrocyte distribution width (RBC) [Ratio] 12.7 % Normal 11.5-15.0 [facility] Comment on above: Order Comment: Speci men Type: BLOOD SPECIMENOrdering Facility: [facility] Address: [address] [place] [address] Performed By: #### 5 7021-8 ####[facility] LABORATORYCLIA [id number] [address] Hematocrit (Bld) [Volume fraction] 37.4 % Low 39.0-51.0 [facility] Comment on above: Order Comment: Speci men Type: BLOOD SPECIMENOrdering Facility: [facility] Address: [address] [place] [address] Performed By: #### 5 7021-8 ####[facility] LABORATORYCLIA [id number] [address] Hemoglobin (Bld) [Mass/Vol] 13.0 g/dL Normal 13.0-17.0 [facility] Comment on above: Order Comment: Speci men Type: BLOOD SPECIMENOrdering Facility: [facility] Address: [address] [place] [address] Performed By: #### 5 7021-8 ####[facility] LABORATORYCLIA [id number] [address] Immature granulocytes (Bld) [#/Vol] 0.04 10*3/uL Normal <0.10 [facility] Comment on above: Order Comment: Speci men Type: BLOOD SPECIMENOrdering Facility: [facility] Address: [address] [place] [address] Performed By: #### 5 7021-8 ####[facility] LABORATORYCLIA [id number] [address] Immature granulocytes/100 WBC (Bld) 0.4 % Normal [facility] Comment on above: Order Comment: Speci men Type: BLOOD SPECIMENOrdering Facility: [facility] Address: [address] [place] [address] Performed By: #### 5 7021-8 ####[facility] LABORATORYCLIA [id number] [address] [place] [facility] Lymphocytes (Bld) [#/Vol] 1.08 10*3/uL Normal 1.00-4.00 [facility] Comment on above: Order Comment: Speci men Type: BLOOD SPECIMENOrdering Facility: [facility] Address: [address] [place] [address] Performed By: #### 5 7021-8 ####[facility] LABORATORYCLIA [id number] [address] Lymphocytes/100 WBC (Bld) 11.4 % Normal [facility] Comment on above: Order Comment: Speci men Type: BLOOD SPECIMENOrdering Facility: [facility] Address: [address] [place] [address] Performed By: #### 5 7021-8 ####[facility] LABORATORYCLIA [id number] [address] [place] MCH (RBC) [Entitic mass] 31.1 pg Normal 26.0-34.0 [facility] Comment on above: Order Comment: Speci men Type: BLOOD SPECIMENOrdering Facility: [facility] Address: [address] [place] [address] Performed By: #### 5 7021-8 ####[facility] LABORATORYCLIA [id number] [address] [place] MCHC (RBC) [Mass/Vol] 34.8 g/dL Normal 30.5-36.0 [facility] Comment on above: Order Comment: Speci men Type: BLOOD SPECIMENOrdering Facility: [facility] Address: [address] [place] [address] Performed By: #### 5 7021-8 ####[facility] LABORATORYCLIA [id number] [address] [place] MCV (RBC) [Entitic vol] 89.5 fL Normal 80.0-100.0 [facility] Comment on above: Order Comment: Speci men Type: BLOOD SPECIMENOrdering Facility: [facility] Address: [address] [place] [address] Performed By: #### 5 7021-8 ####[facility] LABORATORYCLIA [id number] [address] [place] Monocytes (Bld) [#/Vol] 0.66 10*3/uL Normal <0.87 [facility] Comment on above: Order Comment: Speci men Type: BLOOD SPECIMENOrdering Facility: [facility] Address: [address] [place] [address] Performed By: #### 5 7021-8 ####[facility] LABORATORYCLIA [id number] [address] Monocytes/100 WBC (Bld) 6.9 % Normal [facility] Comment on above: Order Comment: Speci men Type: BLOOD SPECIMENOrdering Facility: [facility] Address: [address] [place] [address] Performed By: #### 5 7021-8 ####[facility]ORATORYCLIA [id number] [place] [address] [place] Neutrophils (Bld) [#/Vol] 7.56 10*3/uL High 1.45-7.50 [facility] Comment on above: Order Comment: Speci men Type: BLOOD SPECIMENOrdering Facility: [facility] Address: [address] [place] [address] Performed By: #### 5 7021-8 ####[facility]ORATORYCLIA [id number] [place] [address] [place] Neutrophils/100 WBC (Bld) 79.5 % Normal [facility] Comment on above: Order Comment: Speci men Type: BLOOD SPECIMENOrdering Facility: [facility] Address: [facility] [place] [address] Performed By: #### 5 7021-8 ####[facility] LABORATORYCLIA [id number] [place] [address] [place] Nucleated RBC (Bld) [#/Vol] 10*3/uL Normal <0.01 [facility] Comment on above: Order Comment: Speci men Type: BLOOD SPECIMENOrdering Facility: [facility] Address: [address] [place] [address] Performed By: #### 5 7021-8 ####[facility]ATORYCLIA [id number] [address] [place] Nucleated RBC/100 WBC (Bld) [Ratio] 0.0 /100 WBC Normal [facility] Comment on above: Order Comment: Speci men Type: BLOOD SPECIMENOrdering Facility: [facility] Address: [address] [place] [address] Performed By: #### 5 7021-8 ####[facility]ORATORYCLIA [id number] [place] [address] [place] Platelet mean volume (Bld) [Entitic vol] 8.4 fL Low 9.0-12.7 [facility] Comment on above: Order Comment: Speci men Type: BLOOD SPECIMENOrdering Facility: [facility] Address: [address] [place] [address] Performed By: #### 5 7021-8 ####[facility]ORATORYCLIA [id number] [address] [place] Platelets (Bld) [#/Vol] 220 10*3/uL Normal 150-400 [facility] Comment on above: Order Comment: Speci men Type: BLOOD SPECIMENOrdering Facility: [facility] Address: [address] [place] [address] Performed By: #### 5 7021-8 ####[facility] LABORATORYCLIA [id number] [address] OF [facility] RBC (Bld) [#/Vol] 4.18 10*6/uL Low 4.20-6.00 [facility] Comment on above: Order Comment: Speci men Type: BLOOD SPECIMENOrdering Facility: [facility] Address: [address] [place] [address] Performed By: #### 5 7021-8 ####[facility] LABORATORYCLIA [id number] [address] WBC (Bld) [#/Vol] 9.51 10*3/uL Normal 3.70-11.00 [facility] Comment on above: Order Comment: Speci men Type: BLOOD SPECIMENOrdering Facility: [facility] Address: [address] [place] [address] Performed By: #### 5 7021-8 ####[facility] LABORATORYCLIA [id number] [address] CONSULTon 04-06-2024 CONSULT HNO ID: [id number] Author: JACKIE SHEPPARD DO Service: Hospital Medicine Author Type: Physician Type: Consults Filed: 04/06/2024 22:28 Note Text: DEPARTMENT OF HOSPITAL MEDICINE INITIAL CONSULT SERVICE DATE: 04/06/2024 SERVICE TIME: 10:23 PM Primary Care Physician: Lana Prieto MD NIGHT AND WEEKEND COVERAGE: From 7am - 7pm, please call Sound for medical issues After 7pm, please call cross cover pager #[phone] REQUESTING PHYSICIAN: Dr. Stout REASON FOR CONSULT: pre/post op Subjective CHIEF COMPLAINT: Right leg pain HPI: This is a 64 year old male who presents with right lower extremity pain. He was using a table saw and it caught a piece of wood that he was cutting and it struck him in the knee. He was found to have a proximal tibia fracture. He was transferred to [facility] under the orthopedic department. He denies chest pain shortness breath lightheadedness or dizziness. He has no cardiovascular history and prior to today's event he was able to do all of his ADLs PAST MEDICAL HISTORY Diagnosis Date GERD (gastroesophageal reflux disease) ADAIR (obstructive sleep apnea) states mild case and no CPAP use Snoring PAST SURGICAL HISTORY Procedure Laterality Date ANES OPEN/SURG ARTHROSCOPIC ELBOW PROC NOS Right ANES OPEN/SURG ARTHROSCOPIC PROC KNEE JOINT NOS Left APPENDECTOMY COLONOSCOPY FLX DX W/COLLJ SPEC WHEN PFRMD 09/23/2013 Colonoscopy ESOPHAGOGASTRODUODENOSCOPY TRANSORAL DIAGNOSTIC 09/23/2013 EGD ESOPHAGOGASTRODUODENOSCOPY TRANSORAL DIAGNOSTIC 08/02/2019 EGD FAMILY HISTORY Problem Relation Age of Onset Diabetes Father other (Heart disease) Father No Known Problems Mother No Known Problems Sister other (brain tumor) Brother Social History Tobacco Use Smoking status: Some Days Types: Cigars Smokeless tobacco: Never Tobacco comments: occasionally Substance Use Topics Alcohol use: Yes Comment: occassional Drug use: No HOME MEDICATIONS: gabapentin (NEURONTIN) 600 mg tablet, TAKE ONE HALF TABLET BY MOUTH AT SUPPER AND ONE TABLET AT BEDTIME DIRECTED, Disp: , Rfl: 2 temazepam (RESTORIL) 15 mg cap, Take 15 mg by mouth at bedtime as needed., Disp: , Rfl: [address] (PROTONIX) 40 mg tablet, Take 40 mg by mouth once daily., Disp: , Rfl: Current Facility-Administered Medications Medication Dose Route Frequency pantoprazole DR 40 mg tab(s) (PROTONIX) 40 mg ORAL DAILY gabapentin 600 mg cap(s) (NEURONTIN) 600 mg ORAL AT BEDTIME NaCl 0.9% iv flush bag 20 mL INTRAVENOUS PRN lactated ringers iv infusion 125 mL/hr INTRAVENOUS CONTINUOUS morphine 2 mg injection 2 mg INTRAVENOUS q 2 H PRN ondansetron (PF) 4 mg injection (ZOFRAN) 4 mg INTRAVENOUS q 6 H PRN melatonin 3 mg tab(s) 3 mg ORAL AT BEDTIME PRN acetaminophen 1,000 mg tab(s) (TYLENOL) 1,000 mg ORAL q 8 H oxyCODONE IR 5-10 mg tab(s) (ROXICODONE) 5-10 mg ORAL q 4 H PRN ALLERGIES Allergen Reactions Vicodin [Hydrocodon* Unknown Made patient feel like he was having with drawls from pain medication. REVIEW OF SYSTEM: All ROS are negative except those noted in HPI Objective PHYSICAL EXAM: BP 99/64 Pulse 62 Temp (Src) 98 (Oral) Resp 17 Ht 6' 1 (1.85m) Wt 210 lb (95.3kg) SpO2 96% BMI 27.71 kg/(m2). O2 Therapy: Room Air GENERAL: Alert, no distress, cooperative, NAD SKIN: Warm, dry intact HEAD/SINUSES: Normocephalic, atraumatic, oral mucosa moist NECK: No jugulovenous distention, Supple, no adenopathy LUNGS: Lungs clear to auscultation, no wheezes, ronchi, or rales CARDIAC: RRR, Normal S1 and S2; no rubs, murmurs, or gallops ABDOMEN: Abdomen soft, non-tender, BS normal, No masses or organomegaly EXTREMITIES: Right lower extremity in knee immobilizer NEURO: speech was clear and coherent, moves all present extremities DATA: Diagnostic tests reviewed for today's visit: Most recent labs and imaging results. CBC: Recent Labs 04/06/24 1826 WBC 9.51 RBC 4.18* HB 13.0 HCT 37.4* PLT 220 MCV 89.5 MCH 31.1 MPV 8.4* Coags: No results for input(s): PT, INR, APTT in the last 24 hours. BMP: No results for input(s): NA, K, CHLOR, CO2, BUN, CREAT, GLUC in the last 24 hours. CMP: No results for input(s): NA, K, CHLOR, CO2, BUN, CREAT, GLUC, TPROT, CA, MG, ALBUMIN, TBILI, ALKPHOS, ALT, AST, ANION in the last 24 hours. Cardiac Enzymes: No results for input(s): CK, MB, CKMB, TROPT in the last 24 hours. Liver Function, Amylase, Lipase: No results for input(s): TPROT, ALB, ALT, AST, ALKPHOS, TBILI, AMYLASE, LIPASE, LACTATE in the last 24 hours. MG/PHOS: No results for input(s): MG, P in the last 24 hours. Renal Panel: No results for input(s): ALBUMIN, CREAT, BUN, GLUC, CA, P, CHLOR, K, CO2, NA in the last 24 hours. Heme: No results for input(s): RETICP, ABSRETIC, LD, RON, FE, TIBC,TRANSFERSAT in the last 2 (more content not included)... Normal [facility] CT KNEE WO IVCON RTon 2023 CT KNEE WO IVCON RT * * *Final Report* * * DATE OF EXAM: Apr 06 2024 9:28PM [facility] 0084 - CT KNEE WO IVCON RT / PROCEDURE REASON: Fracture, knee * * * * Physician Interpretation * * * * CT KNEE WO IVCON RT 04/06/2024 9:28 PM HISTORY: Fracture, knee TECHNIQUE: Non-contrast axial CT imaging of the right knee .was performed. . Coronal and sagittal reconstructions were performed. Contrast: None. CT Radiation dose: Integrated Dose-length product (DLP) for this visit = 369 mGy*cm. CT Dose Reduction Employed: Automated exposure control(AEC) and iterative recon COMPARISON: None. RESULT: Acute comminuted fracture of the proximal diaphysis of the right tibia with posterior butterfly fracture fragment and mild impaction and overriding. Superior aspect of the fracture line extends to the posterior superior tibial metaphysis. Fracture line does not extend to the articular surface. Anterior subcutaneous soft tissue edema is present. Tricompartmental degenerative changes of the right knee. Posterior medial small Pruitt's cyst is noted. 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 Posterior superior fracture line extends through this lesion. No evidence of fracture of the distal femur or proximal right fibula. Stunner (topogram) images: No additional findings. IMPRESSION: Acute comminuted fracture of the proximal diaphysis of the right tibia with posterior butterfly fracture fragment and mild impaction and overriding. Superior aspect of the fracture line extends to the posterior superior tibial metaphysis. Fracture line does not extend to the articular surface. Anterior subcutaneous soft tissue edema is present. Doctor Of Audiology: REID Transcribe Date/Time: Apr 07 2024 4:14P Dictated by : STEPHANIE MACK MD This examination was interpreted and the report reviewed and electronically signed by: STEPHANIE MACK MD on Apr 07 2024 4:49PM EST [id number] [facility] ECG COMPLETEon 04-06-2024 ECG COMPLETE Ventricular Rate : 6 0 BPM Atrial Rate : 60 BPM P-R Interval : 168 ms QRS Duration : 92 ms Q-T Interval : 406 ms QTC Calculation(Bazett) : 406 ms Calculated P [place] : 21 degrees Calculated R [place] : 27 degrees Calculated T [place] : 30 degrees NORMAL SINUS RHYTHM NORMAL ECG NO PREVIOUS ECGS AVAILABLE Confirmed by MD HAMILTON VINAY ([id number]) on 04/07/2024 4:45:08 PM NAME : ANDRE PADRON PID : [id number] : 1960 Gender : Male Race : ORD : [id number] Procedure Date : Apr 06 2024 22:20:06 Edit Date : Apr 07 2024 16:45:09 Diagnosis: NORMAL SINUS RHYTHM NORMAL ECG NO PREVIOUS ECGS AVAILABLE Confirmed by MD HAMILTON VINAY ([id number]) on 04/07/2024 4:45:08 PM Test Reason : Pre-OP Location : [address] : [place] [address] Overread By : MD HAMILTON VINAY Edited By : MD HAMILTON VINAY Referred By : , Acquired by : SYLVIE MARTINEZ [facility] ED NOTEon 04-06-2024 ED NOTE HNO ID: [id number] Author: MARIO ALBERTO PENA RN Service: Nursing Author Type: Registered Nurse Type: ED Notes Filed: 04/06/2024 21:02 Note Text: Talked with Vu Mccarty MD with orthopedics, he would like pt to have CT knee done prior to going to ready room. [facility] ED NOTE HNO ID: [id number] Author: MARIO ALBERTO PENA RN Service: Nursing Author Type: Registered Nurse Type: ED Notes Filed: 04/06/2024 19:54 Note Text: CT notified pt is ready for scan. [facility] ED NOTE HNO ID: [id number] Author: TRACI PYLE RN Service: ? Author Type: Registered Nurse Type: ED Notes Filed: 04/06/2024 15:37 Note Text: Bed: 42-ED Expected date: Expected time: Means of arrival: Comments: Ariela 11 Normal [facility] ED PROV NOTEon 04-06-2024 ED PROV NOTE HNO ID: [id number] Author: JACKIE CANSECO MD Service: Emergency Medicine Author Type: Physician Type: ED Provider Notes Filed: 04/06/2024 17:08 Note Text: ED Provider Note Patient Name: Andre Padron : 1960 SERVICE DATE: 04/06/24 History Patient presents with: surgery c/s: Pt was cutting a board with a table saw when the cut kicked out and hit him in the leg. Pt is a transfer from [place], scans showed a R tibia fx. Leg appears to be splinted [employer], meds given before transfer. Pt is AANDOx3. Patient presents today for evaluation of an open right tibial fracture. Patient is a transfer from [facility]. He states that earlier today he was using a table saw when it caught a board which struck him at high velocity in the right leg. The patient denies any other complaints. He states his tetanus was updated 2 weeks ago. He states his pain is well-controlled at this time. He states he is hungry. He has no other complaints. PAST MEDICAL HISTORY Diagnosis Date GERD (gastroesophageal reflux disease) ADAIR (obstructive sleep apnea) states mild case and no CPAP use Snoring PAST SURGICAL HISTORY Procedure Laterality Date ANES OPEN/SURG ARTHROSCOPIC ELBOW PROC NOS Right ANES OPEN/SURG ARTHROSCOPIC PROC KNEE JOINT NOS Left APPENDECTOMY COLONOSCOPY FLX DX W/COLLJ SPEC WHEN PFRMD 09/23/2013 Colonoscopy ESOPHAGOGASTRODUODENOSCOPY TRANSORAL DIAGNOSTIC 09/23/2013 EGD ESOPHAGOGASTRODUODENOSCOPY TRANSORAL DIAGNOSTIC 08/02/2019 EGD FAMILY HISTORY Problem Relation Age of Onset Diabetes Father other (Heart disease) Father No Known Problems Mother No Known Problems Sister other (brain tumor) Brother Social History Tobacco Use Smoking status: Some Days Types: Cigars Smokeless tobacco: Never Tobacco comments: occasionally Substance and Sexual Activity Alcohol use: Yes Comment: occassional Drug use: No Sexual activity: Yes Partners: Female ALLERGIES Allergen Reactions Vicodin [Hydrocodon* Unknown Made patient feel like he was having with drawls from pain medication. Review of Systems Constitutional: Negative for activity change, appetite change, chills and fever. HENT: Negative for congestion and sore throat. Eyes: Negative for pain, redness and visual disturbance. Respiratory: Negative for cough, chest tightness and shortness of breath. Cardiovascular: Negative for chest pain. Gastrointestinal: Negative for abdominal pain, constipation, diarrhea, nausea and vomiting. Endocrine: Negative for cold intolerance and heat intolerance. Genitourinary: Negative for dysuria, flank pain and hematuria. Musculoskeletal: Positive for arthralgias. Negative for back pain, neck pain and neck stiffness. Skin: Negative for color change and rash. Allergic/Immunologic: Negative for environmental allergies and food allergies. Neurological: Negative for dizziness, syncope, weakness, numbness and headaches. Psychiatric/Behavioral: Negative for agitation, confusion and suicidal ideas. Physical Exam Vitals [04/06/24 1545] BP Pulse Temp Temp src Resp SpO2 Weight Height 124/76 64 36.8 ?C (98.3 ?F) Oral 12 100 % 95.3 kg (210 lb) 1.854 m (6' 1) Physical Exam Vitals and nursing note reviewed. Constitutional: Appearance: Normal appearance. He is well-developed. HENT: Head: Normocephalic and atraumatic. Right Ear: External ear normal. Left Ear: External ear normal. Nose: Nose normal. Mouth/Throat: Mouth: Mucous membranes are moist. Pharynx: Oropharynx is clear. Eyes: Conjunctiva/sclera: Conjunctivae normal. Pupils: Pupils are equal, round, and reactive to light. Cardiovascular: Rate and Rhythm: Normal rate and regular rhythm. Heart sounds: Normal heart sounds. Pulmonary: Effort: Pulmonary effort is normal. No respiratory distress. Breath sounds: Normal breath sounds. No stridor. No wheezing, rhonchi or rales. Abdominal: General: Bowel sounds are normal. There is no distension. Palpations: Abdomen is soft. Tenderness: There is no abdominal tenderness. There is no guarding or rebound. Musculoskeletal: General: Tenderness present. No signs of injury. Normal range of motion. Cervical back: Normal range of motion and neck supple. Comments: The patient has a splint present over the right lower extremity. He is neurovascular intact distally with less than 2-second capillary refill in the great toe, he is able to wiggle all toes and he has intact sensation in the toes. Lymphadenopathy: Cervical: No cervical adenopathy. Skin: General: Skin is warm and dry. Coloration: Skin is not jaundiced. Findings: No rash. Neurological: General: No focal deficit present. Mental Status: He is alert and oriented to person, place, and time. Cranial Nerves: No cranial nerve deficit. Coordination: Coordination normal. Psychiatric: Mood and Affect: Mood normal. Behavior: Behavior normal. Thought Content: (more content not included)... Normal [facility] HISTORY PHYSICALon HISTORY PHYSICAL HNO ID: [id number] Author: HUSEYIN STOUT MD Service: Orthopaedic Surgery Author Type: Physician Type: H&P Filed: 04/07/2024 10:59 Note Text: I evaluated the patient and personally participated in the gordon components. I agree with the resident's findings and plan with the following revisions and/or additions: I reviewed the nature of the injury and proposed surgical intervention. Risks, benefits and expected recovery discussed. All questions answered to his apparent satisfaction and he agrees to proceed. Signature: Huseyin Stout MD Service Date: 04/07/2024 Service Time: 10:58 AM Orthopaedic Surgery History and Physical Chief Complaint: Closed proximal comminuted R tibia fracture Admitting Physician: Dr. Michel MD Date: April 06, 2024 Time: 5:57 PM History of Present Illness Andre Padron is a 64 year old male transferred from [facility] who presents with a right proximal tibia fracture. Patient states he was using a table saw when it caught the piece of wood he was cutting causing it to strike him in the knee. Patient endorses some subjective tingling distal to the injury. Patient denies prior surgery to right leg. Denies blood thinners. Patient lives at home and ambulates independently. Review of Systems A 10-point review of systems was completed and is otherwise non-contributory to the patient's presenting condition. History PAST MEDICAL HISTORY Diagnosis Date GERD (gastroesophageal reflux disease) ADAIR (obstructive sleep apnea) states mild case and no CPAP use Snoring PAST SURGICAL HISTORY Procedure Laterality Date ANES OPEN/SURG ARTHROSCOPIC ELBOW PROC NOS Right ANES OPEN/SURG ARTHROSCOPIC PROC KNEE JOINT NOS Left APPENDECTOMY COLONOSCOPY FLX DX W/COLLJ SPEC WHEN PFRMD 09/23/2013 Colonoscopy ESOPHAGOGASTRODUODENOSCOPY TRANSORAL DIAGNOSTIC 09/23/2013 EGD ESOPHAGOGASTRODUODENOSCOPY TRANSORAL DIAGNOSTIC 08/02/2019 EGD Pneumococcal Vaccine(1 of 2 - PCV) Never done Depression Screening Never done Hepatitis C Screening Never done HIV Screening Never done Lipid Screening Never done Shingrix Vaccine(1 of 2) Never done Prostate Cancer Screening Discussion Never done Diabetes Screening due on 02/23/2020 RSV Vaccine(1 - 1-dose 60+ series) Never done Covid-19 Vaccine( - season) Never done Colorectal Cancer Screening due on 09/23/2023 Influenza Vaccine(1) due on 05/12/2024 DTaP,Tdap,Td Vaccine(3 - Td or Tdap) due on 03/16/2034 A review of the patient's history was completed and is otherwise non-contributory to the patient's presenting condition. Medications gabapentin (NEURONTIN) 600 mg tabletTAKE ONE HALF TABLET BY MOUTH AT SUPPER AND ONE TABLET AT BEDTIME DIRECTEDDisp: Rfl: 2 temazepam (RESTORIL) 15 mg capTake 15 mg by mouth at bedtime as needed.Disp: Rfl: [address] (PROTONIX) 40 mg tabletTake 40 mg by mouth once daily.Disp: Rfl: Allergies Vicodin [Hydrocodone-Acetaminophen] Family History Family History Reviewed Including Cardiac Diseases, Psychiatric Diseases, AND Substance Abuse Problem: Diabetes Relation: Father Age of Onset: (Not Specified) Problem: other (Heart disease) Relation: Father Age of Onset: (Not Specified) Problem: No Known Problems Relation: Mother Age of Onset: (Not Specified) Problem: No Known Problems Relation: Sister Age of Onset: (Not Specified) Problem: other (brain tumor) Relation: Brother Age of Onset: (Not Specified) Social History 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 General Alert and oriented. NAD. Skin No rashes or lesions. Appropriate skin turgor. Pulmonary Non-labored breathing on room air. Symmetric chest expansion. Psych Appropriate mood and affect. Right Lower Extremity No obvious deformity Swelling around knee Ecchymosis medial side proximal tibia Patient has superficial abrasion to anterior leg, does not probe deep Compartments of the thigh and leg are soft and compressible. The patient tolerates passive stretch of the digits SILT Grace/Sa/DP/SP/T. Motor intact EHL/DF/PF. DP pulse palpable; BCR all digits. Components of the patient's physical examination not noted above were not contributory to the present assessment. Labs No results for input(s): NA, K, CHLOR, CO2, BUN, CREAT, GLUC, ANION, CA, MG, P, ALB, AST, ALT, ALKPHOS, TBILI, DBILI, PHOSINTL, WBC, HB, HCT, PLT, LACT, INR, PH, PCO2, (more content not included)... Normal [facility] Absolute lymphocyte countOrd ered By: Andre Yeh on 03-14-2023 Lymphocytes Auto (Unsp spec) [#/Vol] 1.44 10*3/uL 0.83-4.51 [facility] Basophil percentageOrdered B y: Andre Yeh on 03-14-2023 Basophils/100 WBC (Bld) 0.8 % 0-1 [facility] Bilirubin [Mass/Vol] 0.90 mg/dL 0.20-1.00 [facility] Comment on above: For patients on eltr ombopag therapy, use of Dimension Gideon TBIL is not recommended. Chloride [Moles/Vol] 111 mmol/L 98-107 [facility] Cholesterol [Mass/Vol] 158 mg/dL <200 [facility] Comment on above: <200 mg/dL Desirable 200-240 mg/dL Borderline >240 mg/dL High Risk Eosinophils/100 WBC (Bld) 3.4 % 0-5 [facility] Glucose [Mass/Vol] 101 mg/dL 74-106 [facility] Comment on above: Fasting Glucose resu lt from 100 to 125 mg/dL suggests IMPAIRED HOMEOSTASIS per A.D.A. criteria. Neutrophils (Bld) [#/Vol] 2.5 10*3/uL 2.0-7.7 [facility] Neutrophils/100 WBC (Bld) 52.7 % 47-70 [facility] Potassium [Moles/Vol] 3.6 mmol/L 3.5-5.1 [facility] Protein [Mass/Vol] 7.3 g/dL 6.4-8.2 [facility] Sodium [Moles/Vol] 141 mmol/L 136-145 [facility] Triglyceride [Mass/Vol] 69 mg/dL <199 [facility] Comment on above: The drugs N-Acetylcy steine and Metamizole may falsely depress this assay.Serum Triglycerides Reference Interval Normal <150 mg/dL Borderline high 150 - 199 mg/dL High 200 - 499 mg/dL Very High > or = 500 mg/dL WBC (Bld) [#/Vol] 4.7 10*3/uL 4.4-11.0 [facility] Blood erythrocytes count (nu mber/volume)Ordered By: Andre Yeh on 03-14-2023 RBC (Bld) [#/Vol] 4.54 10*6/uL 4.6-6.2 [facility] Blood hemoglobin measurement (mass/volume)Ordered By: Andre Yeh on 03-14-2023 Hemoglobin (Bld) [Mass/Vol] 14.4 g/dL 13.0-16.5 [facility] Blood lymphocytes/100 leukoc ytesOrdered By: Andre Yeh on 03-14-2023 Lymphocytes/100 WBC (Bld) 30.4 % 19-41 [facility] Blood monocytes/100 leukocyt esOrdered By: Andre Yeh on 03-14-2023 Monocytes/100 WBC (Bld) 12.5 % 0-10 [facility] Blood platelet mean volumeOr dered By: Andre Yeh on 03-14-2023 Platelet mean volume (Bld) [Entitic vol] 7.9 fL 6.2-12.0 [facility] Determination of erythrocyte mean corpuscular volume (MCV)Ordered By: Andre Yeh on 03-14-2023 MCV (RBC) [Entitic vol] 87.2 fL 80-94 [facility] Hematocrit Auto (Bld) [Volum e fraction]Ordered By: Andre Yeh on 03-14-2023 Hematocrit (Bld) [Volume fraction] 39.6 % 40-54 [facility] Laboratory - Chemistry and C hemistry - challengeOrdered By: Andre Yeh on 03-14-2023 ALP [Catalytic activity/Vol] 50 U/L 45-117 [facility] ALT [Catalytic activity/Vol] 37 U/L 16-61 [facility] CO2 [Moles/Vol] 26.0 mmol/L 21.0-32.0 [facility] Globulin (S) [Mass/Vol] 3.4 g/dL 2.2-4.2 [facility] Urea nitrogen/Creatinine [Mass ratio] 17.4 mg/mg 10-20 [facility] Laboratory - Hematology and Cell countsOrdered By: Andre Yeh on 03-14-2023 Erythrocyte distribution width (RBC) [Entitic vol] 40.3 fL 35.1-43.9 [facility] Erythrocyte distribution width (RBC) [Ratio] 12.8 % 11.6-14.6 [facility] Immature granulocytes/100 WBC (Bld) 0.200 % 0.0-0.9 [facility] Comment on above: IG% - Immature Granu locytes (promyelocytes, myelocytes and metamyelocytes) > 1% indicates that a LEFT SHIFT is Present. MCH (RBC) [Entitic mass] 31.7 pg 27.0-32.0 [facility] Nucleated RBC/100 WBC (Bld) [Ratio] 0 % 0-5 [facility] MCHC Auto (RBC) [Mass/Vol]Or dered By: Andre Yeh on 03-14-2023 MCHC (RBC) [Mass/Vol] 36.4 g/dL 32-36 [facility] No Panel InformationOrdered By: Andre Yeh on 03-14-2023 Estimated GFR (MDRD) Amer 116 mL/min >60 [facility] Comment on above: GFR Calc Estimated GFR (MDRD) Non-Af Amer 96 mL/min >60 [facility] Comment on above: Non- GFR Calc Prostate Specific Antigen Screen 0.91 ng/mL 0.00-4.00 [facility] Comment on above: This test was perfor med using the TPSA assay method [facility]. Values obtained with differentassay methods cannot be used interchangably.When changing PSA assays in the course of monitoring apatient, additional sequential testing should be carriedout to confirm baseline values. Platelets bldOrdered By: Shanell Yeh on 03-14-2023 Platelets (Bld) [#/Vol] 251 10*3/uL 150-450 [facility] Serum or plasma albumin jennifer urement (mass/volume)Ordered By: Andre Yeh on 03-14-2023 Albumin [Mass/Vol] 3.9 g/dL 3.2-5.0 [facility] Serum or plasma albumin/glob ulin mass ratioOrdered By: Andre Yeh on 03-14-2023 Albumin/Globulin [Mass ratio] 1.1 {ratio} 0.9-2.4 [facility] Serum or plasma calcium jennifer urement (mass/volume)Ordered By: Andre Yeh on 03-14-2023 Calcium [Mass/Vol] 8.9 mg/dL 8.5-10.1 [facility] Serum or plasma cholesterol in HDL measurement (mass/volume)Ordered By: Andre Yeh on 03-14-2023 Cholesterol in HDL [Mass/Vol] 39 mg/dL >40 [facility] Comment on above: The drugs N-Acetylcy steine and Metamizole may falsely depress this assay. Reference Range HDL <40 mg/dL Low HDL Cholesterol HDL >or= 60 mg/dL High HDL Cholesterol Serum or plasma cholesterol in VLDL measurement (mass/volume)Ordered By: Andre Yeh on 03-14-2023 Cholesterol in VLDL [Mass/Vol] 14 mg/dL 5-40 [facility] Serum or plasma creatinine m easurement (mass/volume)Ordered By: Andre Yeh on 03-14-2023 Creatinine [Mass/Vol] 0.86 mg/dL 0.70-1.30 [facility] Comment on above: The validity of the calculated GFR & GFRAA in patients over 70 years has not been determined. Clinical correlation is essential. Serum or plasma low density lipoprotein (LDL) cholesterol measurement (mass/volume)Ordered By: Andre Yeh on 03-14-2023 Cholesterol in LDL [Mass/Vol] 105 mg/dL 0-130 [facility] Serum or plasma urea nitroge n measurement (mass/volume)Ordered By: Andre Yeh on 03-14-2023 Urea nitrogen [Mass/Vol] 15 mg/dL 7-18 [facility] Thin prep Papanicolaou smear with manual screeningOrdered By: Andre Yeh on 03-14-2023 Thin prep Papanicolaou smear with manual screening 26 U/L 15-37 [facility] Thin prep Papanicolaou smear with manual screening 4 5-15 [facility] Whole blood hemoglobin A1c/t otal hemoglobin ratio (mass fraction)Ordered By: Andre Yeh on 03-14-2023 HbA1c (Bld) [Mass fraction] 5.5 % 3.8-5.6 [facility] Comment on above: Normal < 5.7 % Predi abetic 5.7 - 6.4 % Diabetic >or= 6.5 % Please note range changes. Basophil percentageon 2021 Bilirubin [Mass/Vol] 1.10 mg/dL 0.20-1.00 [facility] Work Phone: Comment on above: For patients on eltr ombopag therapy, use of Dimension Gideon TBIL is not recommended. Chloride [Moles/Vol] 107 mmol/L 98-107 [facility] Work Phone: Cholesterol [Mass/Vol] 152 mg/dL <200 [facility] Work Phone: Comment on above: <200 mg/dL Desirable 200-240 mg/dL Borderline >240 mg/dL High Risk Glucose [Mass/Vol] 105 mg/dL 74-106 [facility] Work Phone: Comment on above: Fasting Glucose resu lt from 100 to 125 mg/dL suggests IMPAIRED HOMEOSTASIS per A.D.A. criteria. Potassium [Moles/Vol] 3.9 mmol/L 3.5-5.1 [facility] Work Phone: Protein [Mass/Vol] 7.0 g/dL 6.4-8.2 [facility] Work Phone: Sodium [Moles/Vol] 140 mmol/L 136-145 [facility] Work Phone: Triglyceride [Mass/Vol] 112 mg/dL <199 [facility] Work Phone: Comment on above: The drugs N-Acetylcy steine and Metamizole may falsely depress this assay.Serum Triglycerides Reference Interval Normal <150 mg/dL Borderline high 150 - 199 mg/dL High 200 - 499 mg/dL Very High > or = 500 mg/dL Laboratory - Chemistry and C hemistry - challengeon 07-09-2022 ALP [Catalytic activity/Vol] 52 U/L 45-117 [facility] Work Phone: ALT [Catalytic activity/Vol] 36 U/L 16-61 [facility] Work Phone: CO2 [Moles/Vol] 28.0 mmol/L 21.0-32.0 [facility] Work Phone: Globulin (S) [Mass/Vol] 3.2 g/dL 2.2-4.2 [facility] Work Phone: Urea nitrogen/Creatinine [Mass ratio] 12.2 mg/mg 10-20 [facility] Work Phone: No Panel Informationon 07-09 Estimated GFR (MDRD) Amer 110 mL/min >60 [facility] Work Phone: Comment on above: GFR Calc Estimated GFR (MDRD) Non-Af Amer 91 mL/min >60 [facility] Work Phone: Comment on above: Non- GFR Calc Serum or plasma albumin jennifer urement (mass/volume)on 07-09-2022 Albumin [Mass/Vol] 3.8 g/dL 3.2-5.0 [facility] Work Phone: Serum or plasma albumin/glob ulin mass ratioon 07-09-2022 Albumin/Globulin [Mass ratio] 1.2 {ratio} 0.9-2.4 [facility] Work Phone: Serum or plasma calcium jennifer urement (mass/volume)on 07-09-2022 Calcium [Mass/Vol] 8.6 mg/dL 8.5-10.1 [facility] Work Phone: Serum or plasma cholesterol in HDL measurement (mass/volume)on 07-09-2022 Cholesterol in HDL [Mass/Vol] 41 mg/dL >40 [facility] Work Phone: Comment on above: The drugs N-Acetylcy steine and Metamizole may falsely depress this assay. Reference Range HDL <40 mg/dL Low HDL Cholesterol HDL >or= 60 mg/dL High HDL Cholesterol Serum or plasma cholesterol in VLDL measurement (mass/volume)on 07-09-2022 Cholesterol in VLDL [Mass/Vol] 22 mg/dL 5-40 [facility] Work Phone: Serum or plasma creatinine m easurement (mass/volume)on 07-09-2022 Creatinine [Mass/Vol] 0.90 mg/dL 0.70-1.30 [facility] Work Phone: Comment on above: The validity of the calculated GFR & GFRAA in patients over 70 years has not been determined. Clinical correlation is essential. Serum or plasma low density lipoprotein (LDL) cholesterol measurement (mass/volume)on 07-09-2022 Cholesterol in LDL [Mass/Vol] 89 mg/dL 0-130 [facility] Work Phone: Serum or plasma urea nitroge n measurement (mass/volume)on 07-09-2022 Urea nitrogen [Mass/Vol] 11 mg/dL 7-18 [facility] Work Phone: Thin prep Papanicolaou smear with manual screeningon 07-09-2022 Thin prep Papanicolaou smear with manual screening 25 U/L 15-37 [facility] Work Phone: Thin prep Papanicolaou smear with manual screening 5 5-15 [facility] Work Phone: PROGRESSon 09-07-2019 PROGRESS HNO ID: [id number] Author: Kee Sibley Service: ? Author Type: Physician Type: Progress Notes Filed: 09/07/2019 9:39 AM Note Text: FOLLOW UP VISIT - ENDOSCOPY NAME: Andre Maradiaga [facility] NO.: [id number] DATE OF SERVICE: 09/06/2019 : 1960 REFERRING PHYSICIAN: Lana Prieto MD The patient is a 59 year old male referred for a complaint of upper abdominal discomfort and bloating and what he is concerned about as a possible upper midline hernia. The patient notes that when he raises his legs he notes a sausage-shaped bulge from his xiphoid to his umbilicus. This is increased in size of last 3 years as his weight has increased. He notes no true bulge in his umbilical area. Andre notes no history of colon complaints. The patient notes the following upper complaints: He notes epigastric discomfort and reflux symptoms. He has been on Protonix for a protracted period of time and is worried about staying on this medication but notes that his epigastric symptoms and heartburn worsen when he does not take these medications. He denies true dysphagia symptoms when eating food. Andre has undergone prior endoscopy. And unremarkable colonoscopy September 23, [address] Gil. Upper endoscopy for reflux symptoms demonstrated erythematous GE junction, a small hiatal hernia, and mild diffuse erythematous gastric mucosa. The patient is being seen by me today at the request of Dr. Lana Prieto MD for my opinion and advice regarding persistent epigastric symptoms. I performed upper endoscopy on August 02, 2019. The patient was found to have erythematous to adenopathy, gastritis, multiple gastric polyps consistent with fundic gland polyps moderate reflux esophagitis in the distal esophagus with a normal-appearing middle esophagus. Pathology demonstrated: FINAL DIAGNOSIS 1. Jejunum, biopsy (A) - Small intestinal mucosa with focal mild active enteritis. 2. Stomach, antrum, biopsy (B) - Mixed gastric antral/oxyntic-type mucosa with mild chronic inactive gastritis, see comment. - No intestinal metaplasia or Helicobacter pylori organisms. 3. Stomach, polyp, biopsy (C) - Fundic gland polyp. 4. Esophagus, distal, biopsy (D) - Focal mild active esophagitis. - No morphologic evidence of fungal organisms or viral cytopathic effect. 5. Esophagus, mid, biopsy (E) - Squamous esophageal mucosa with no significant pathological change. ES/SA/rw 08/05/2019 The patient notes mild improvement in his complaints since the procedure. He has us prescription for Protonix but has been taking this every other day after hearing about risks of side effects from proton pump inhibitors. VITALS: There were no vitals taken for this visit. On examination, the abdomen is benign. Assessment IMPRESSION: Mild duodenitis, gastritis, reflux esophagitis PLAN: If the patient notes any problems or changes in bowel function, the patient should contact me immediately. Otherwise I recommend follow up endoscopy as needed-especially if the patient notes dysphagia or changes reflux symptoms. I recommend he try 40 mg of Protonix per day to see if this improves his symptoms. We discussed that I feel the risk of proton pump inhibitors has been over blunt and the media and that if this improves his symptoms it is appropriate to take with a good risk-benefit ratio. We did discuss that the smallest dose of any medication that has a positive affect is inappropriate maneuver. Diagnoses: (R10.13) Epigastric pain (primary encounter diagnosis) (M62.08) Diastasis recti Return to Clinic: The patient is instructed to follow-up with me as needed. Kee Sibley MD [facility] CNOVon 09-06-2019 CNOV Office Visit (GENSWS ) ANDRE PADRON ([id number]) 1960 M Date Time Provider Department 09/06/19 3:50 PM KEE SIBLEY During your visit today, we recorded the following information about you: Kee Sibley MD 09/07/2019 9:39 AM Signed FOLLOW UP VISIT - ENDOSCOPY NAME: Andre Padron CLINIC NO.: [id number] DATE OF SERVICE: 09/06/2019 : 1960 REFERRING PHYSICIAN: Lana Prieto MD The patient is a 59 year old male referred for a complaint of upper abdominal discomfort and bloating and what he is concerned about as a possible upper midline hernia. The patient notes that when he raises his legs he notes a sausage-shaped bulge from his xiphoid to his umbilicus. This is increased in size of last 3 years as his weight has increased. He notes no true bulge in his umbilical area. Andre notes no history of colon complaints. The patient notes the following upper complaints: He notes epigastric discomfort and reflux symptoms. He has been on Protonix for a protracted period of time and is worried about staying on this medication but notes that his epigastric symptoms and heartburn worsen when he does not take these medications. He denies true dysphagia symptoms when eating food. Andre has undergone prior endoscopy. And unremarkable colonoscopy September 23, [address] Gil. Upper endoscopy for reflux symptoms demonstrated erythematous GE junction, a small hiatal hernia, and mild diffuse erythematous gastric mucosa. The patient is being seen by me today at the request of Dr. Lana Prieto MD for my opinion and advice regarding persistent epigastric symptoms. I performed upper endoscopy on August 02, 2019. The patient was found to have erythematous to adenopathy, gastritis, multiple gastric polyps consistent with fundic gland polyps moderate reflux esophagitis in the distal esophagus with a normal-appearing middle esophagus. Pathology demonstrated: FINAL DIAGNOSIS 1. Jejunum, biopsy (A) - Small intestinal mucosa with focal mild active enteritis. 2. Stomach, antrum, biopsy (B) - Mixed gastric antral/oxyntic-type mucosa with mild chronic inactive gastritis, see comment. - No intestinal metaplasia or Helicobacter pylori organisms. 3. Stomach, polyp, biopsy (C) - Fundic gland polyp. 4. Esophagus, distal, biopsy (D) - Focal mild active esophagitis. - No morphologic evidence of fungal organisms or viral cytopathic effect. 5. Esophagus, mid, biopsy (E) - Squamous esophageal mucosa with no significant pathological change. ES/SA/rw 08/05/2019 The patient notes mild improvement in his complaints since the procedure. He has us prescription for Protonix but has been taking this every other day after hearing about risks of side effects from proton pump inhibitors. VITALS: There were no vitals taken for this visit. On examination, the abdomen is benign. Assessment IMPRESSION: Mild duodenitis, gastritis, reflux esophagitis PLAN: If the patient notes any problems or changes in bowel function, the patient should contact me immediately. Otherwise I recommend follow up endoscopy as needed-especially if the patient notes dysphagia or changes reflux symptoms. I recommend he try 40 mg of Protonix per day to see if this improves his symptoms. We discussed that I feel the risk of proton pump inhibitors has been over blunt and the media and that if this improves his symptoms it is appropriate to take with a good risk-benefit ratio. We did discuss that the smallest dose of any medication that has a positive affect is inappropriate maneuver. Diagnoses: (R10.13) Epigastric pain (primary encounter diagnosis) (M62.08) Diastasis recti Return to Clinic: The patient is instructed to follow-up with me as needed. Kee Sibley MD Referring Provider: LANA PRIETO [[id number]] Allergies As of Date: 09/06/2019 Noted Allergy Reaction VICODIN (HYDROCODONE-ACETAMINOPHE* 16 - Unknown Comments: Made patient feel like he was having with drawls from pain medication. 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 Andre Padron 1960 ? REFERRING PHYSICIAN: Lana Prieto MD ? CHIEF COMPLAINT: bloating questionable hernia ? HPI: The patient is a 59 year old male referred for a complaint of upper abdominal discomfort and bloating and what he is concerned about as a possible upper midline hernia. ? The patient notes that when he raises his legs he notes a sausage-shaped bulge from his xiphoid to his umbilicus. This is increased in size of last 3 years as his weight has increased. ? He notes no true bulge in his umbilical area. ? Andre notes no history of colon complaints. ? The patient notes the following upper complaints: He notes epigastric discomfort and reflux symptoms. He has been on Protonix for a protracted period of time and is worried about staying on this medication but notes that his epigastric symptoms and heartburn worsen when he does not take these medications. He denies true dysphagia symptoms when eating food. ? Andre has undergone prior endoscopy. And unremarkable colonoscopy September 23, [address] Gil. Upper endoscopy for reflux symptoms demonstrated erythematous GE junction, a small hiatal hernia, and mild diffuse erythematous gastric mucosa. ? The patient is being seen by me today at the request of Dr. Lana Prieto MD for my opinion and advice regarding persistent epigastric symptoms. ? ? PAST MEDICAL HISTORY PAST MEDICAL HISTORY Diagnosis Date - GERD (gastroesophageal reflux disease) ? ? ? PAST SURGICAL HISTORY PAST SURGICAL HISTORY Procedure Laterality Date - APPENDECTOMY ? ? - COLONOSCOP W/ OR W/O BRSH SPEC ? 09/23/2013 ? Colonoscopy - EGD W/O OR W/BRUSH/WASH ? 09/23/2013 ? EGD - ND ANESTH,ELBOW,NOS ? ? ? Right - ND ANESTH,KNEE JOINT; NOS ? ? ? Left ? Current Outpatient Medications: TRINTELLIX 20 mg tab Take 1 tablet by mouth once daily. escitalopram oxalate (LEXAPRO) 5 mg tablet ? gabapentin (NEURONTIN) 600 mg tablet TAKE ONE HALF TABLET BY MOUTH AT SUPPER AND ONE TABLET AT BEDTIME DIRECTED pilocarpine (SALAGEN, PILOCARPINE,) 5 mg tablet Take 1 tablet by mouth three times daily. temazepam (RESTORIL) 15 mg cap Take 15 mg by mouth at bedtime as needed. pantoprazole DR (PROTONIX) 40 mg tablet Take 40 mg by mouth once daily. ? No current facility-administered medications for this visit. ? ALLERGIES: Vicodin [Hydrocodone-Acetaminophen] ? 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 Employer: [employer] Social Needs Financial resource strain: Not on file Food insecurity: Worry: Not on file Inability: Not on file Transportation needs: Medical: Not on file Non-medical: Not on file Tobacco Use Smoking status: Never Smoker Substance and Sexual Activity Alcohol use: Yes Comment: occassional Drug use: No Sexual activity: Yes Partners: Female Lifestyle Physical activity: Days per week: Not on file Minutes per session: Not on file Stress: Not on file Relationships Social connections: Talks on phone: Not on file Gets together: Not on file Attends rastafari service: Not on file Active member of club or organization: Not on file Attends meetings of clubs or organizations: Not on file Relationship status: Not on file Intimate partner violence: Fear of current or ex partner: Not on file Emotionally abused: Not on file Physically abused: Not on file Forced sexual activity: Not on file Other Topics Concerns: Not on file Social History Narrative Not on file ? FAMILY HISTORY: FAMILY HISTORY FAMILY HISTORY Problem Relation Age of Onset - Diabetes Father ? - other (Heart disease) Father ? - No Known Problems Mother ? - No Known Problems Sister ? - other (brain tumor) Brother ? ? ? REVIEW OF SYMPTOMS: The review of systems data was entered by the nurse and reviewed by me ? Nursing Notes: Adina Simeon LPN 06/06/2019 8:37 AM Signed REVIEW OF SYSTEMS: General: The patient NOTES fatigue, denies weight loss, NOTES weight gain, denies feeling hot, and denies feelings of cold. Eyes: The patient denies glaucoma, NOTES eye injury/surgery, wears glasses or contacts. Ear/Nose/Throat: The patient denies allergies, denies hayfever, denies ear infections, and denies bloody noses. Cardiovascular: The patient denies chest pain, denies heart disease, denies high blood pressure,denies cardiac stent, denies prior heart attack, denies irregular heart beat, denies high cholesterol, denies poor circulation, denies heart failure, other cardiac issues, denies claudication, denies cold feet, denies peripheral arterial stent. Respiratory: The patient denies tuberculosis, denies pneumonia, denies frequent cough, denies pulmonary embolism, denies shortness of breath, and denies coughing up blood. Gastrointestinal: The patient denies difficulty swallowing, NOTES acid reflux, denies ulcers, denies vomiting, denies jaundice/hepatitis, denies gallbladder problems, denies black or tarry stools, NOTES hemorrhoids, NOTES bleeding from rectum, denies diverticulitis, denies constipation, denies diarrhea, denies loss of stool control, and denies hernias. Kidney/Bladder: The patient denies kidney stones, denies urine infections, and denies bloody urine. Skin: The patient denies a history of skin cancer, denies bleeding/changing moles, and denies a history of skin rash. Neurologic: The patient denies a history of epilepsy/convulsions, denies headaches, denies head/spinal injuries, and denies stroke/TIA. Psychiatric: The patient denies psychiatric medications, NOTES depression, and denies voices, denies substance abuse. Endocrine: The patient denies thyroid disorders, denies diabetes, and denies hormonal problems. Hematologic: The patient denies a history of bruising, denies bleeding, and denies anemia, denies blood clots. Infections: The patient denies a history of measles and mumps, denies rheumatic fever, and denies sexually transmitted diseases. Musculoskeletal: The patient denies back pain/injury, denies back problems, denies sciatica, NOTES knee/foot trouble, denies arthritis, or denies gout. ? ? When was patient's last Mammogram screening? N/A ? Last Colonoscopy: 2013 ? Adina Simeon LPN PHYSICAL EXAMINATION: ? General: The patient is 59 year old male, well nourished, well hydrated in no acute distress. The patient is oriented to time, place, and person. ? VITALS: Blood pressure 122/78, pulse 92, temperature 36.2 ?C (97.1 ?F), temperature source Temporal Artery, resp. rate 14, height 185.4 cm (6' 1), weight 120.2 kg (265 lb), SpO2 97 %. Body mass index is 34.96 kg/m?. ? HEENT: Normal cephalic, ataumatic, pupils are equally round, sclera are anicteric, mucous membranes are moist, oropharynx is clear. Neck has no masses, asymmetry or lymphadenopathy. Thyroid is unremarkable. ? Respiratory: Clear to auscultation and percussion. Normal respiratory excursion and pattern. ? Cardiac: Examination is regular rate and rhythm. ? Abdominal exam: Soft, nontender, with no palpable masses. No hepatosplenomegaly. No palpable hernias. - Diastases recti ? Rectal exam: exam deferred ? Extremities: no clubbing, cyanosis or edema. No adenopathy. ? Other: ? LABORATORY VALUES: As Noted ? RADIOLOGIC STUDIES: As Noted ? Assessment IMPRESSION: Persistent epigastric symptoms on long-term PPIs, history of gastritis ? PLAN: I plan to perform upper endoscopy. We discussed the risks and benefits of the planned endoscopy. I have informed the patient that complications can occur including failure to complete the endoscopy and perforation. The patient had the opportunity to ask questions concerning the planned endoscopy. My staff has also explained the procedure to the patient in understandable terms and has given the patient printed material concerning the procedure. The patient freely consents to surgery. ? Diagnoses: (R10.13) Epigastric pain (primary encounter diagnosis) (M62.08) Diastasis recti ? A letter was sent to Dr. Lana Prieto MD indicating the above finding for this patient. Return to Clinic: The patient is instructed to follow-up with me after the testing has been completed. ? _ Kee Sibley MD [facility] NURSING PROGon 08-02-2019 NURSING PROG HNO ID: [id number] Author: Sharri Rajan RN Service: ? Author Type: Registered Nurse Type: Nursing Progress Note Filed: 08/02/2019 8:28 AM Note Text: Patient did not experience a fall prior to discharge. Patient did not experience a burn prior to discharge. Sharri Rajan RN [facility] NURSING PROG HNO ID: [id number] Author: Sharri Rajan RN Service: ? Author Type: Registered Nurse Type: Nursing Progress Note Filed: 08/02/2019 8:30 AM Note Text: Pt sitting up in bed tolerating snack and drink. Denies sore throat, pain or nausea. at bedside. Abd soft and nondistended. No complaints. Sharri Rajan RN [facility] NURSING PROG HNO ID: [id number] Author: Sharri Rajan RN Service: ? Author Type: Registered Nurse Type: Nursing Progress Note Filed: 08/02/2019 7:40 AM Note Text: Dr. Sibley at bedside and spoke with pt's . Pt very sleepy. Sharri Rajan RN [facility] NURSING PROG HNO ID: [id number] Author: Gwendolyn Westbrook RN Service: Nursing Author Type: Registered Nurse Type: Nursing Progress Note Filed: 08/02/2019 7:20 AM Note Text: Patient did not experience a fall within the Intraoperative area. Patient did not experience a burn within the Intraoperative area. Gwendolyn Westbrook RN [facility] NURSING PROG HNO ID: [id number] Author: Sharri Rajan RN Service: ? Author Type: Registered Nurse Type: Nursing Progress Note Filed: 08/02/2019 7:14 AM Note Text: [facility] PRE-OP NURSING HAND OFF NOTE SBAR Hand off given to Gwendolyn Westbrook RN. Hand off was communicated verbally and at the patient's bedside and all questions were answered. FALLS/UMANZOR Patient did not experience a fall within the Preoperative area. Patient did not experience a burn within the Preoperative area. Sharri Rajan RN [facility] PT EDon 08-02-2019 PT ED HNO ID: [id number] Author: Sharri Rajan RN Service: ? Author Type: Registered Nurse Type: Patient Education Filed: 08/02/2019 7:33 AM Note Text: POST OP LEARNING RESPONSE INSTRUCTION PROVIDED TO: Patient and Spouse METHOD OF INSTRUCTION: Individual instruction Written instruction - handouts Verbal instruction PATIENT / FAMILY RESPONSE: Verbalizes understanding of: MEDICAL REGIMEN-Importance of following prescribed medical regimen POST-PROCEDURE INSTRUCTIONS-Correct actions to take to reduce post procedure complications WORSENING CONDITION-Signs and symptoms of a worsening condition that warrant a call to the physician FOLLOW-UP PLAN: Patient instructed to call with any further issues Follow up phone call. Contact information given. SUPPLEMENTAL MATERIAL: Post sedation instructions given Procedure discharge instructions REFERRAL (RECOMMENDATION): None Electronically Signed By: Sharri Rajan RN In Department: AMBULATORY SURGERY [facility] PT ED HNO ID: [id number] Author: Sharri Rajan RN Service: ? Author Type: Registered Nurse Type: Patient Education Filed: 08/02/2019 6:27 AM Note Text: PRE OP LEARNING ASSESSMENT PROCEDURE/SURGERY: GI PROCEDURES: EGD READINESS TO LEARN COGNITIVE ABILITY: Alert and oriented MOTIVATION TO LEARN: Eager FAMILY SUPPORT: High - Very involved in pt care PATIENT LEARNS BEST BY: Multiple Methods FACTORS AFFECTING LEARNING: None PHYSICAL LIMITATIONS AFFECTING LEARNING: None Electronically Signed By: Sharri Rajan RN In Department: AMBULATORY SURGERY [facility] SURGICAL PATHOLOGYon 019 SURGICAL PATHOLOGY Specimen originated from [facility] Specimen #: [id number] Submitting Physician: KEE SIBLEY ([email or web address]) FINAL DIAGNOSIS 1. Jejunum, biopsy (A) - Small intestinal mucosa with focal mild active enteritis. 2. Stomach, antrum, biopsy (B) - Mixed gastric antral/oxyntic-type mucosa with mild chronic inactive gastritis, see comment. - No intestinal metaplasia or Helicobacter pylori organisms. 3. Stomach, polyp, biopsy (C) - Fundic gland polyp. 4. Esophagus, distal, biopsy (D) - Focal mild active esophagitis. - No morphologic evidence of fungal organisms or viral cytopathic effect. 5. Esophagus, mid, biopsy (E) - Squamous esophageal mucosa with no significant pathological change. ERWIN//radha 08/05/2019 COMMENT 2. Given the presence of mild chronic inactive gastritis, a Helicobacter pylori immunohistochemical stain was performed on block B1 and is negative for Helicobacter pylori organisms. Laboratory Developed Test (LDT) Disclaimer: Positive and negative controls stain appropriately. Performance characteristics of immunohistochemical, immunofluorescent and chromogenic in-situ hybridization tests have been determined by [facility]'s [facility] Pathology and Laboratory Medicine [place] [facility] in a manner consistent with CLIA requirements. One or more of these tests have not been cleared or approved by the FDA. [facility] is regulated under CLIA as qualified to perform high-complexity testing.These tests are used for clinical purposes. They should not be regarded as investigational or for research. Adeline Corey, M.D. (Electronic Signature) SPECIMEN SUBMITTED A: JEJUNUM, BIOPSY B: ANTRUM, BIOPSY H/H C: FUNDIC GLAND POLYP, BIOPSY D: DISTAL ESOPHAGUS, BIOPSY E: MID-ESOPHAGUS, BIOPSY CLINICAL DATA R10.11 GROSS DESCRIPTION A. Received in formalin is one piece of kang, soft tissue measuring 0.4 x 0.3 x 0.2 cm. Totally submitted in one cassette. B. Received in formalin is one piece of kang, soft tissue measuring 0.6 x 0.3 x 0.2 cm. Totally submitted in one cassette. C. Received in formalin is one piece of kang, soft tissue measuring 0.3 x 0.2 x 0.3 cm. Totally submitted in one cassette. D. Received in formalin is one piece of kang, soft tissue measuring 0.4 x 0.3 x 0.2 cm. Totally submitted in one cassette. E. Received in formalin is one piece of kang, soft tissue measuring 0.3 x 0.2 x 0.1 cm. Totally submitted in one cassette. Gross examination performed at [facility], [address] [place] [address] 08/03/2019 1:33:29 AM Date of Report: 08/06/2019 Date of Procedure: 08/02/2019 Date of Receipt: 08/02/2019 Submitted by: KEE SIBLEY ([email or web address]) Location: W010 Diagnostic interpretation performed at [place] [address]. CLIA Number: [id number] [facility] CNOVon 06-06-2019 CNOV Office Visit (GENSWS ) ANDRE PADRON ([id number]) 1960 M Date Time Provider Department 06/06/19 8:40 AM KEE SIBLEY During your visit today, we recorded the following information about you: Temperature Pulse Respiration Blood pressure 97.1 degrees 92/minute 14/minute 122/78 Weight Height 120.2 kg 1.854 m Adina Simeon JOSE 06/06/2019 8:37 AM Signed REVIEW OF SYSTEMS: General: The patient NOTES fatigue, denies weight loss, NOTES weight gain, denies feeling hot, and denies feelings of cold. Eyes: The patient denies glaucoma, NOTES eye injury/surgery, wears glasses or contacts. Ear/Nose/Throat: The patient denies allergies, denies hayfever, denies ear infections, and denies bloody noses. Cardiovascular: The patient denies chest pain, denies heart disease, denies high blood pressure,denies cardiac stent, denies prior heart attack, denies irregular heart beat, denies high cholesterol, denies poor circulation, denies heart failure, other cardiac issues, denies claudication, denies cold feet, denies peripheral arterial stent. Respiratory: The patient denies tuberculosis, denies pneumonia, denies frequent cough, denies pulmonary embolism, denies shortness of breath, and denies coughing up blood. Gastrointestinal: The patient denies difficulty swallowing, NOTES acid reflux, denies ulcers, denies vomiting, denies jaundice/hepatitis, denies gallbladder problems, denies black or tarry stools, NOTES hemorrhoids, NOTES bleeding from rectum, denies diverticulitis, denies constipation, denies diarrhea, denies loss of stool control, and denies hernias. Kidney/Bladder: The patient denies kidney stones, denies urine infections, and denies bloody urine. Skin: The patient denies a history of skin cancer, denies bleeding/changing moles, and denies a history of skin rash. Neurologic: The patient denies a history of epilepsy/convulsions, denies headaches, denies head/spinal injuries, and denies stroke/TIA. Psychiatric: The patient denies psychiatric medications, NOTES depression, and denies voices, denies substance abuse. Endocrine: The patient denies thyroid disorders, denies diabetes, and denies hormonal problems. Hematologic: The patient denies a history of bruising, denies bleeding, and denies anemia, denies blood clots. Infections: The patient denies a history of measles and mumps, denies rheumatic fever, and denies sexually transmitted diseases. Musculoskeletal: The patient denies back pain/injury, denies back problems, denies sciatica, NOTES knee/foot trouble, denies arthritis, or denies gout. When was patient's last Mammogram screening? N/A Last Colonoscopy: 2013 Adina Sibley MD 06/06/2019 6:21 PM Signed HISTORY AND PHYSICAL Andre Padron 1960 REFERRING PHYSICIAN: Lana Prieto MD CHIEF COMPLAINT: bloating questionable hernia HPI: The patient is a 59 year old male referred for a complaint of upper abdominal discomfort and bloating and what he is concerned about as a possible upper midline hernia. The patient notes that when he raises his legs he notes a sausage-shaped bulge from his xiphoid to his umbilicus. This is increased in size of last 3 years as his weight has increased. He notes no true bulge in his umbilical area. Andre notes no history of colon complaints. The patient notes the following upper complaints: He notes epigastric discomfort and reflux symptoms. He has been on Protonix for a protracted period of time and is worried about staying on this medication but notes that his epigastric symptoms and heartburn worsen when he does not take these medications. He denies true dysphagia symptoms when eating food. Andre has undergone prior endoscopy. And unremarkable colonoscopy September 23, [address] Gil. Upper endoscopy for reflux symptoms demonstrated erythematous GE junction, a small hiatal hernia, and mild diffuse erythematous gastric mucosa. The patient is being seen by me today at the request of Dr. Lana Prieto MD for my opinion and advice regarding persistent epigastric symptoms. PAST MEDICAL HISTORY Diagnosis Date - GERD (gastroesophageal reflux disease) PAST SURGICAL HISTORY Procedure Laterality Date - APPENDECTOMY - COLONOSCOP W/ OR W/O BRSH SPEC 09/23/2013 Colonoscopy - EGD W/O OR W/BRUSH/WASH 09/23/2013 EGD - ND ANESTH,ELBOW,NOS Right - ND ANESTH,KNEE JOINT; NOS Left Current Outpatient Medications: TRINTELLIX 20 mg tab Take 1 tablet by mouth once daily. escitalopram oxalate (LEXAPRO) 5 mg tablet gabapentin (NEURONTIN) 600 mg tablet TAKE ONE HALF TABLET BY MOUTH AT SUPPER AND ONE TABLET AT BEDTIME DIRECTED pilocarpine (SALAGEN, PILOCARPINE,) 5 mg tablet Take 1 tablet by mouth three times daily. temazepam (RESTORIL) 15 mg cap Take 15 mg by mouth at bedtime as needed. pantoprazole DR (PROTONIX) 40 mg tablet Take 40 mg by mouth once daily. No current facility-administered medications for this visit. 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 Social Needs Financial resource strain: Not on file Food insecurity: Worry: Not on file Inability: Not on file Transportation needs: Medical: Not on file Non-medical: Not on file Tobacco Use Smoking status: Never Smoker Substance and Sexual Activity Alcohol use: Yes Comment: occassional Drug use: No Sexual activity: Yes Partners: Female Lifestyle Physical activity: Days per week: Not on file Minutes per session: Not on file Stress: Not on file Relationships Social connections: Talks on phone: Not on file Gets together: Not on file Attends rastafari service: Not on file Active member of club or organization: Not on file Attends meetings of clubs or organizations: Not on file Relationship status: Not on file Intimate partner violence: Fear of current or ex partner: Not on file Emotionally abused: Not on file Physically abused: Not on file Forced sexual activity: Not on file Other Topics Concerns: Not on file Social History Narrative Not on file FAMILY HISTORY: FAMILY HISTORY Problem Relation Age of Onset - Diabetes Father - other (Heart disease) Father - No Known Problems Mother - No Known Problems Sister - other (brain tumor) Brother REVIEW OF SYMPTOMS: The review of systems data was entered by the nurse and reviewed by wy Nursing Notes: Adina Simeon LPN 06/06/2019 8:37 AM Signed REVIEW OF SYSTEMS: General: The patient NOTES fatigue, denies weight loss, NOTES weight gain, denies feeling hot, and denies feelings of cold. Eyes: The patient denies glaucoma, NOTES eye injury/surgery, wears glasses or contacts. Ear/Nose/Throat: The patient denies allergies, denies hayfever, denies ear infections, and denies bloody noses. Cardiovascular: The patient denies chest pain, denies heart disease, denies high blood pressure,denies cardiac stent, denies prior heart attack, denies irregular heart beat, denies high cholesterol, denies poor circulation, denies heart failure, other cardiac issues, denies claudication, denies cold feet, denies peripheral arterial stent. Respiratory: The patient denies tuberculosis, denies pneumonia, denies frequent cough, denies pulmonary embolism, denies shortness of breath, and denies coughing up blood. Gastrointestinal: The patient denies difficulty swallowing, NOTES acid reflux, denies ulcers, denies vomiting, denies jaundice/hepatitis, denies gallbladder problems, denies black or tarry stools, NOTES hemorrhoids, NOTES bleeding from rectum, denies diverticulitis, denies constipation, denies diarrhea, denies loss of stool control, and denies hernias. Kidney/Bladder: The patient denies kidney stones, denies urine infections, and denies bloody urine. Skin: The patient denies a history of skin cancer, denies bleeding/changing moles, and denies a history of skin rash. Neurologic: The patient denies a history of epilepsy/convulsions, denies headaches, denies head/spinal injuries, and denies stroke/TIA. Psychiatric: The patient denies psychiatric medications, NOTES depression, and denies voices, denies substance abuse. Endocrine: The patient denies thyroid disorders, denies diabetes, and denies hormonal problems. Hematologic: The patient denies a history of bruising, denies bleeding, and denies anemia, denies blood clots. Infections: The patient denies a history of measles and mumps, denies rheumatic fever, and denies sexually transmitted diseases. Musculoskeletal: The patient denies back pain/injury, denies back problems, denies sciatica, NOTES knee/foot trouble, denies arthritis, or denies gout. When was patient's last Mammogram screening? N/A [facility]: General: The patient is 59 year old male, well nourished, well hydrated in no acute distress. The patient is oriented to time, place, and person. VITALS: Blood pressure 122/78, pulse 92, temperature 36.2 ?C (97.1 ?F), temperature source Temporal Artery, resp. rate 14, height 185.4 cm (6' 1), weight 120.2 kg (265 lb), SpO2 97 %. Body mass index is 34.96 kg/m?. HEENT: Normal cephalic, ataumatic, pupils are equally round, sclera are anicteric, mucous membranes are moist, oropharynx is clear. Neck has no masses, asymmetry or lymphadenopathy. Thyroid is unremarkable. Respiratory: Clear to auscultation and percussion. Normal respiratory excursion and pattern. Cardiac: Examination is regular rate and rhythm. Abdominal exam: Soft, nontender, with no palpable masses. No hepatosplenomegaly. No palpable hernias. - Diastases recti Rectal exam: exam deferred Extremities: no clubbing, cyanosis or edema. No adenopathy. Other: LABORATORY VALUES: As Noted RADIOLOGIC STUDIES: As Noted Assessment IMPRESSION: Persistent epigastric symptoms on long-term PPIs, history of gastritis PLAN: I plan to perform upper endoscopy. We discussed the risks and benefits of the planned endoscopy. I have informed the patient that complications can occur including failure to complete the endoscopy and perforation. The patient had the opportunity to ask questions concerning the planned endoscopy. My staff has also explained the procedure to the patient in understandable terms and has given the patient printed material concerning the procedure. The patient freely consents to surgery. Diagnoses: (R10.13) Epigastric pain (primary encounter diagnosis) (M62.08) Diastasis recti A letter was sent to Dr. Lana Prieto MD indicating the above finding for this patient. Return to Clinic: The patient is instructed to follow-up with me after the testing has been completed. _ Kee Sibley MD Referring Provider: LANA PRIETO [[id number]] Allergies As of Date: 06/06/2019 Noted Allergy Reaction VICODIN (HYDROCODONE-ACETAMINOPHE* 16 - Unknown Comments: Made patient feel like he was having with drawls from pain medication. Date Reviewed: 06/06/2019 Reviewed by: Adina Simeon LPN - Fully Assessed Reason for Visit: bloating questionable hernia [Other] Primary Visit Diagnosis:Epigastric pain [R10.13] Other Visit Diagnosis:Diastasis recti [M62.08] Order(s):EGD [[id number]] Order #: [id number] FUTURE Prescriptions as of 06/06/2019 Sig: TRINTELLIX 20 MG TABLET Take 1 tablet by mouth once d* ESCITALOPRAM 5 MG TABLET GABAPENTIN 600 MG TABLET TAKE ONE HALF TABLET BY MOUTH* PILOCARPINE 5 MG TABLET Take 1 tablet by mouth three * TEMAZEPAM 15 MG CAPSULE Take 15 mg by mouth at bedtim* PANTOPRAZOLE 40 MG TABLET,DEL* Take 40 mg by mouth once elvis* Problem List As Of Date 06/06/2019 Noted Resolved Anxiety [F41.9] INVALID FOR* Parotid mass [K11.8] INVALID FOR*03/13/2017 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 Eyes: The patient denies glaucoma, NOTES eye injury/surgery, wears glasses or contacts. Ear/Nose/Throat: The patient denies allergies, denies hayfever, denies ear infections, and denies bloody noses. Cardiovascular: The patient denies chest pain, denies heart disease, denies high blood pressure,denies cardiac stent, denies prior heart attack, denies irregular heart beat, denies high cholesterol, denies poor circulation, denies heart failure, other cardiac issues, denies claudication, denies cold feet, denies peripheral arterial stent. Respiratory: The patient denies tuberculosis, denies pneumonia, denies frequent cough, denies pulmonary embolism, denies shortness of breath, and denies coughing up blood. Gastrointestinal: The patient denies difficulty swallowing, NOTES acid reflux, denies ulcers, denies vomiting, denies jaundice/hepatitis, denies gallbladder problems, denies black or tarry stools, NOTES hemorrhoids, NOTES bleeding from rectum, denies diverticulitis, denies constipation, denies diarrhea, denies loss of stool control, and denies hernias. Kidney/Bladder: The patient denies kidney stones, denies urine infections, and denies bloody urine. Skin: The patient denies a history of skin cancer, denies bleeding/changing moles, and denies a history of skin rash. Neurologic: The patient denies a history of epilepsy/convulsions, denies headaches, denies head/spinal injuries, and denies stroke/TIA. Psychiatric: The patient denies psychiatric medications, NOTES depression, and denies voices, denies substance abuse. Endocrine: The patient denies thyroid disorders, denies diabetes, and denies hormonal problems. Hematologic: The patient denies a history of bruising, denies bleeding, and denies anemia, denies blood clots. Infections: The patient denies a history of measles and mumps, denies rheumatic fever, and denies sexually transmitted diseases. Musculoskeletal: The patient denies back pain/injury, denies back problems, denies sciatica, NOTES knee/foot trouble, denies arthritis, or denies gout. When was patient's last Mammogram screening? N/A Last Colonoscopy: 2013 Adina Simeon OUTSOLE MOLDER Letter Text Encounter Status:Closed by KEE SIBLEY MD on 06/06/19 [facility] HOSPon 06-06-2019 HOSP Patient:Andre Padron MRN: Height:6' 1(1.854 m) Weight:No patient weight recorded within the last 30 days. 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 Author Type: Physician Type: Progress Notes Filed: 06/06/2019 6:21 PM Note Text: HISTORY AND PHYSICAL Andre Hiren Nereida 1960 REFERRING PHYSICIAN: Lana Prieto MD CHIEF COMPLAINT: bloating questionable hernia HPI: The patient is a 59 year old male referred for a complaint of upper abdominal discomfort and bloating and what he is concerned about as a possible upper midline hernia. The patient notes that when he raises his legs he notes a sausage-shaped bulge from his xiphoid to his umbilicus. This is increased in size of last 3 years as his weight has increased. He notes no true bulge in his umbilical area. Andre notes no history of colon complaints. The patient notes the following upper complaints: He notes epigastric discomfort and reflux symptoms. He has been on Protonix for a protracted period of time and is worried about staying on this medication but notes that his epigastric symptoms and heartburn worsen when he does not take these medications. He denies true dysphagia symptoms when eating food. Andre has undergone prior endoscopy. And unremarkable colonoscopy September 23, [address] Gil. Upper endoscopy for reflux symptoms demonstrated erythematous GE junction, a small hiatal hernia, and mild diffuse erythematous gastric mucosa. The patient is being seen by me today at the request of Dr. Lana Prieto MD for my opinion and advice regarding persistent epigastric symptoms. PAST MEDICAL HISTORY Diagnosis Date - GERD (gastroesophageal reflux disease) PAST SURGICAL HISTORY Procedure Laterality Date - APPENDECTOMY - COLONOSCOP W/ OR W/O BRSH SPEC 09/23/2013 Colonoscopy - EGD W/O OR W/BRUSH/WASH 09/23/2013 EGD - ND ANESTH,ELBOW,NOS Right - ND ANESTH,KNEE JOINT; NOS Left Current Outpatient Medications: TRINTELLIX 20 mg tab Take 1 tablet by mouth once daily. escitalopram oxalate (LEXAPRO) 5 mg tablet gabapentin (NEURONTIN) 600 mg tablet TAKE ONE HALF TABLET BY MOUTH AT SUPPER AND ONE TABLET AT BEDTIME DIRECTED pilocarpine (SALAGEN, PILOCARPINE,) 5 mg tablet Take 1 tablet by mouth three times daily. temazepam (RESTORIL) 15 mg cap Take 15 mg by mouth at bedtime as needed. pantoprazole DR (PROTONIX) 40 mg tablet Take 40 mg by mouth once daily. No current facility-administered medications for this visit. 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: [employer] Social Needs Financial resource strain: Not on file Food insecurity: Worry: Not on file Inability: Not on file Transportation needs: Medical: Not on file Non-medical: Not on file Tobacco Use Smoking status: Never Smoker Substance and Sexual Activity Alcohol use: Yes Comment: occassional Drug use: No Sexual activity: Yes Partners: Female Lifestyle Physical activity: Days per week: Not on file Minutes per session: Not on file Stress: Not on file Relationships Social connections: Talks on phone: Not on file Gets together: Not on file Attends rastafari service: Not on file Active member of club or organization: Not on file Attends meetings of clubs or organizations: Not on file Relationship status: Not on file Intimate partner violence: Fear of current or ex partner: Not on file Emotionally abused: Not on file Physically abused: Not on file Forced sexual activity: Not on file Other Topics Concerns: Not on file Social History Narrative Not on file FAMILY HISTORY: FAMILY HISTORY Problem Relation Age of Onset - Diabetes Father - other (Heart disease) Father - No Known Problems Mother - No Known Problems Sister - other (brain tumor) Brother REVIEW OF SYMPTOMS: The review of systems data was entered by the nurse and reviewed by wy Nursing Notes: Adina Simeon LPN 06/06/2019 8:37 AM Signed REVIEW OF SYSTEMS: General: The patient NOTES fatigue, denies weight loss, NOTES weight gain, denies feeling hot, and denies feelings of cold. Eyes: The patient denies glaucoma, NOTES eye injury/surgery, wears glasses or contacts. Ear/Nose/Throat: The patient denies allergies, denies hayfever, denies ear infections, and denies bloody noses. Cardiovascular: The patient denies chest pain, denies heart disease, denies high blood pressure,denies cardiac stent, denies prior heart attack, denies irregular heart beat, denies high cholesterol, denies poor circulation, denies heart failure, other cardiac issues, denies claudication, denies cold feet, denies peripheral arterial stent. Respiratory: The patient denies tuberculosis, denies pneumonia, denies frequent cough, denies pulmonary embolism, denies shortness of breath, and denies coughing up blood. Gastrointestinal: The patient denies difficulty swallowing, NOTES acid reflux, denies ulcers, denies vomiting, denies jaundice/hepatitis, denies gallbladder problems, denies black or tarry stools, NOTES hemorrhoids, NOTES bleeding from rectum, denies diverticulitis, denies constipation, denies diarrhea, denies loss of stool control, and denies hernias. Kidney/Bladder: The patient denies kidney stones, denies urine infections, and denies bloody urine. Skin: The patient denies a history of skin cancer, denies bleeding/changing moles, and denies a history of skin rash. Neurologic: The patient denies a history of epilepsy/convulsions, denies headaches, denies head/spinal injuries, and denies stroke/TIA. Psychiatric: The patient denies psychiatric medications, NOTES depression, and denies voices, denies substance abuse. Endocrine: The patient denies thyroid disorders, denies diabetes, and denies hormonal problems. Hematologic: The patient denies a history of bruising, denies bleeding, and denies anemia, denies blood clots. Infections: The patient denies a history of measles and mumps, denies rheumatic fever, and denies sexually transmitted diseases. Musculoskeletal: The patient denies back pain/injury, denies back problems, denies sciatica, NOTES knee/foot trouble, denies arthritis, or denies gout. When was patient's last Mammogram screening? N/A Last Colonoscopy: 2013 [facility] PHYSICAL EXAMINATION: General: The patient is 59 year old male, well nourished, well hydrated in no acute distress. The patient is oriented to time, place, and person. VITALS: Blood pressure 122/78, pulse 92, temperature 36.2 ?C (97.1 ?F), temperature source Temporal Artery, resp. rate 14, height 185.4 cm (6' 1), weight 120.2 kg (265 lb), SpO2 97 %. Body mass index is 34.96 kg/m?. HEENT: Normal cephalic, ataumatic, pupils are equally round, sclera are anicteric, mucous membranes are moist, oropharynx is clear. Neck has no masses, asymmetry or lymphadenopathy. Thyroid is unremarkable. Respiratory: Clear to auscultation and percussion. Normal respiratory excursion and pattern. Cardiac: Examination is regular rate and rhythm. Abdominal exam: Soft, nontender, with no palpable masses. No hepatosplenomegaly. No palpable hernias. - Diastases recti Rectal exam: exam deferred Extremities: no clubbing, cyanosis or edema. No adenopathy. Other: LABORATORY VALUES: As Noted RADIOLOGIC STUDIES: As Noted Assessment IMPRESSION: Persistent epigastric symptoms on long-term PPIs, history of gastritis PLAN: I plan to perform upper endoscopy. We discussed the risks and benefits of the planned endoscopy. I have informed the patient that complications can occur including failure to complete the endoscopy and perforation. The patient had the opportunity to ask questions concerning the planned endoscopy. My staff has also explained the procedure to the patient in understandable terms and has given the patient printed material concerning the procedure. The patient freely consents to surgery. Diagnoses: (R10.13) Epigastric pain (primary encounter diagnosis) (M62.08) Diastasis recti A letter was sent to Dr. Lana Prieto MD indicating the above finding for this patient. Return to Clinic: The patient is instructed to follow-up with me after the testing has been completed. _ Kee Sibley MD Normal [facility] DHEASon 02-14-2018 DHEA-SO4 35 mcg/dL Low 80-560 [facility] ([place]) Comment on above: Performed By: #### E 2, TESTO, DHEAS ####[place] [address] E2on 02-08-2018 Estradiol Level 29 pg/mL Normal 12-52 [facility] ([place]) Comment on above: Result Comment: Adul t Female E2 Reference Ranges (09/16/11): Follicular phase 21 - 165 pg/mL Midcycle 50 - 367 pg/mL Luteal phase 40 - 259 pg/mL Post menopausal 11 - 58 pg/mL Performed By: #### E 2, TESTO, DHEAS ####[address] [address] TESTOon 02-08-2018 Testosterone Lvl 835.8 ng/dL High 241.0-827.0 [facility] ([place]) Comment on above: Performed By: #### E 2, TESTO, DHEAS ####[address] [address] Vital Signs Date Time Vital Sign Value Performing Clinician Wendy woodall 08-27-2024 15:07-0500 Body height 185.4 cm Lucy Ponce PA-C Work Phone: [facility] 08-27-2024 15:07-0500 Body mass index (BMI) [Ratio] 28.37 kg/m2 Lucy Ponce PA-C Work Phone: [facility] 08-27-2024 15:07-0500 Body weight 97.52 kg Lucy Ponce PA-C Work Phone: [facility] 08-27-2024 15:07-0500 Respiratory rate 16 /min Lucy Ponce PA-C Work Phone: [facility] 07-11-2024 10:28-0400 Body height 185.4 cm Oumar William MD Work Phone: [facility] 07-11-2024 10:28-0400 Body mass index (BMI) [Ratio] 28.37 kg/m2 Oumar William MD Work Phone: [facility] 07-11-2024 10:28-0400 Body weight 97.52 kg Oumar William MD Work Phone: [facility] 07-11-2024 10:28-0400 Respiratory rate 20 /min Oumar William MD Work Phone: [facility] 06-14-2024 11:14-0400 Body height 185.4 cm Huseyin Stout MD Work Phone: [facility] 06-14-2024 11:14-0400 Body mass index (BMI) [Ratio] 28.37 kg/m2 Huseyin Stout MD Work Phone: [facility] 06-14-2024 11:14-0400 Body weight 97.52 kg Huseyin Stout MD Work Phone: [facility] 06-14-2024 11:14-0400 Respiratory rate 16 /min Huseyin Stout MD Work Phone: [facility] 05-15-2024 10:40-0400 Body height 185.4 cm Huseyin Stout MD Work Phone: [facility] 05-15-2024 10:40-0400 Body mass index (BMI) [Ratio] 28.37 kg/m2 Huseyin Stout MD Work Phone: [facility] 05-15-2024 10:40-0400 Body weight 97.52 kg Huseyin Stout MD Work Phone: [facility] 05-15-2024 10:40-0400 Respiratory rate 16 /min Huseyin Stout MD Work Phone: [facility] 04-18-2024 11:17-0400 Body height 185.4 cm Lucy CAMARGO-C Work Phone: [facility] 04-18-2024 11:17-0400 Body mass index (BMI) [Ratio] 28.37 kg/m2 Lucy CAMARGO-C Work Phone: [facility] 04-18-2024 11:17-0400 Body weight 97.52 kg Lucy Ponce PA-C Work Phone: [facility] 04-18-2024 11:17-0400 Respiratory rate 16 /min Lucy CAMARGO-C Work Phone: [facility] Encounters Encounter Date Encounter Type Care Provider Facility Start: 04-21-2025 Encounter for genera l adult medical examination without abnormal findings [facility] Start: 04-21-2025 ambulatory [facility] Facility: [facility] Start: 08-27-2024 End: 08-27-2024 Patient encounter procedure Lucy CAMARGO-C Work Phone: [facility] Comment on above: Closed fracture of p roximal end of right tibia, unspecified fracture morphology, initial encounter (Primary Dx); Surgery follow-up examination Start: 08-27-2024 End: 08-27-2024 ambulatory LUCY PONCE Facility:[facility] Start: 08-12-2024 End: 08-12-2024 Telephone encounter Huseyin Stout MD Work Phone: [facility] Comment on above: Appointment (DR ELIOT TUBBS WILL BE OUT OF THE OFFICE. WAS ABLE TO RS FROM HIM TO LUCY PONCE SAME DAY DIFFERENT TIME) Start: 07-11-2024 End: 07-11-2024 Patient encounter procedure Oumar William MD Work Phone: [facility] Comment on above: Other closed fractur e of proximal end of right tibia with routine healing, subsequent encounter (Primary Dx) Start: 07-11-2024 End: 07-11-2024 ambulatory OUMAR WILLIAM Facility:[facility] Start: 06-14-2024 End: 06-14-2024 Patient encounter procedure Huseyin Stout MD Work Phone: [facility] Comment on above: Other closed fractur e of proximal end of right tibia with routine healing, subsequent encounter (Primary Dx) Start: 06-14-2024 End: 06-14-2024 ambulatory HUSEYIN STOUT Facility:[facility] Start: 05-15-2024 End: 05-15-2024 ambulatory HUSEYIN STOUT Facility:[facility] Start: 05-15-2024 End: 05-15-2024 Patient encounter procedure Huseyin Stout MD Work Phone: [facility] Comment on above: Closed fracture of p roximal end of right tibia, unspecified fracture morphology, initial encounter (Primary Dx) Start: 04-23-2024 Telephone encounter Huseyin Hall MD Work Phone: [facility] Comment on above: Patient Question Start: 04-22-2024 Telephone encounter Huseyin Hall MD Work Phone: [facility] Start: 04-18-2024 End: 04-18-2024 Patient encounter procedure Lucy Ponce PA-C Work Phone: [facility] Comment on above: Surgery follow-up ex amination (Primary Dx) Start: 04-18-2024 End: 04-18-2024 ambulatory LUCY PONCE Facility:[facility] Start: 04-09-2024 Telephone encounter Huseyin Hall MD Work Phone: [facility] Comment on above: Appointment Start: 04-06-2024 Emergency department patient visit LANA PRIETO Facility:[facility] Start: 03-14-2023 End: 03-14-2023 ambulatory [facility] Work Phone: Start: 03-14-2023 End: 03-14-2023 Patient encounter procedure [facility] Work Phone: Start: 07-09-2022 End: 07-09-2022 ambulatory [facility] Work Phone: Start: 07-09-2022 End: 07-09-2022 Patient encounter procedure [facility] Start: 02-07-2018 End: 02-08-2018 Ambulatory SANG URENA Facility[facility] Procedures Date Procedure Procedure Detail Performing Clinician Start: 07-11-2024 Radiologic examinati on tibia & fibula 2 views Oumar William MD Work Phone: Start: 05-15-2024 Radiologic examinati on knee 1/2 views Huseyin Stout MD Work Phone: Start: 04-07-2024 Antibody screen REGINA WILLIAM Comment on above: Order Comment: Speci men Type: BLOOD SPECIMENOrdering Facility: [facility] Address: [address] [place] [address] Performed By: #### T SCR ####[facility] [id number] [address] [place] Start: 09-23-2013 Colonoscopy Huseyin joe MD Work Phone: Plan of Treatment Date Care Activity Detail Author Start: 03-16-2034 Urine microalbumin profile DTaP,Tdap,Td Vaccine (3 - Td or Tdap) [facility] Start: 04-08-2027 Diabetes Screening Diabetes Screenin g [facility] Start: 08-27-2024 End: 08-27-2024 Patient encounter procedure [facility] Comment on above: F/U 6 weeks, R Tibia F/U 6 weeks, R Tibia ..WAS RS FROM DR STOUT TO LUCY PONCE Start: 07-12-2024 End: 07-12-2024 Patient encounter procedure 07/12/2024 9:15 AM EDT Office Visit [facility] [address] [place] [address] Huseyin Stout MD [address] [place] [address] F/U, R Tibia [facility] Comment on above: F/U, R Tibia Start: 06-14-2024 End: 06-14-2024 Patient encounter procedure 06/14/2024 11:30 AM EDT Office Visit [facility] [address] [place] [address] Huseyin Stout MD [address] [place] [address] PO 4 week F/U, R Tibia (surgery 04/07/2024) [facility] Comment on above: PO 4 week F/U, R Tib ia (surgery 04/07/2024) Start: 05-17-2024 End: 05-17-2024 Patient encounter procedure 05/17/2024 10:15 AM EDT Office Visit [facility] [address] [place] [address] Huseyin Stout MD [address] [place] [address] R tibia sx 04-07 F/U [facility] Comment on above: R tibia sx - F/U Start: 05-12-2024 Covid-19 Vaccine ( season) Covid-19 Vaccine ( season) [facility] Start: 05-12-2024 Covid-19 Vaccine ( season) Covid-19 Vaccine ( season) [facility] Start: 05-12-2024 Influenza vaccination Influenza Vacc ine (#1) [facility] Start: 04-18-2024 End: 04-18-2024 Patient encounter procedure 04/18/2024 11:15 AM EDT Office Visit [facility] [address] [place] [address] Lucy Ponce PA-C [address] [place] [address] [address] [place] [address] po R tibia sx - [facility] Comment on above: po R tibia sx - Start: 09-23-2023 Screening for malign ant neoplasm of colon [facility] Start: 05-12-2023 Covid-19 Vaccine ( season) Covid-19 Vaccine ( season) [facility] Start: 2021 RSV Vaccine (1 - 1-d ose 60+ series) RSV Vaccine (1 - 1-dose 60+ series) [facility] Start: 2021 RSV Vaccine (1 - Ris k 60-74 years 1-dose series) RSV Vaccine (1 - Risk 60-74 years 1-dose series) [facility] Start: 01-24-2016 Prostate specific antigen measurement Prostate Cancer Screening Discussion [facility] Start: 2011 Shingrix Vaccine (1 of 2) Shingrix Vaccine (1 of 2) [facility] Start: 2006 Screening for malign ant neoplasm of colon [facility] Start: 01-24-1996 Lipid panel Lipid Screening [facility] Start: 01-24-1980 Pneumococcal Vaccine : 50+ (1 of 2 - PCV) Pneumococcal Vaccine: 50+ (1 of 2 - PCV) [facility] Start: 1979 Depression Screening Depression Scre ening [facility] Start: 1979 Hepatitis C screening Hepatitis C Sc reening [facility] Start: 1979 HIV screening HIV Screening [facility] Start: 1967 Pneumococcal vaccination Pneumococcal Vaccine (1 of 2 - PCV) [facility] End: 07-14-2025 XR Knee - right AP and Lateral XR KNEE LIMITED 2V AP/LAT RIGHT Radiology Routine Other closed fracture of proximal end of right tibia with routine healing, subsequent encounter 1 Occurrences starting 06/14/2024 until 07/14/2025 [facility] Work Phone: Comment on above: 1 Occurrences starti ng 06/14/2024 until 07/14/2025 XR Tibia and Fibula - right AP and Lateral XR TIBIA FIBULA 2V AP/LAT RIGHT Radiology Routine Surgery follow-up examination Ordered: 04/18/2024 [facility] Work Phone: Comment on above: Ordered: 04/18/2024 Immunizations Immunization Date Immunization Notes Care Provider Simran swan 08-20-2016 tetanus toxoid, redu magy diphtheria toxoid, and acellular pertussis vaccine, adsorbed [facility] Payers Date Payer Category Payer Self-pay [id number] 2015 Unknown [employer] PPO [id number] 2015-Present [phone] [address] [place] [address] PPO [id number] 2015 Unknown [id number] Unknown [id number] Social History Date Type Detail Facility Start: 09-06-2017 Tobacco smoking status [facility] Unknown if ever smoked [facility] Start: 1960 Sex Assigned At Male W [facility] Start: 08-02-2019 End: 04-18-2024 Tobacco smoking status NHIS Occasional tobacco smoker [facility] History of tobacco use Cigar Smoker [facility] Start: 08-02-2019 End: 04-18-2024 Tobacco use and exposure Smokeless tobacco non-user [facility] Start: 04-07-2024 End: 08-27-2024 Alcohol intake Current drinker of alcohol (finding) [facility] Start: 04-06-2024 End: 04-07-2024 History of Social function [facility] Start: 04-06-2024 End: 04-07-2024 Tobacco use panel [facility] National Score (1-100), lower number is lower risk 70 [facility] Start: 08-02-2019 End: 04-18-2024 Tobacco Comment occasionally [facility] Start: 1960 Sex Assigned At Not on file C [facility] Medical Equipment Procedure Code Equipment Code Equipment Origin al Text Equipment Identifier Dates Matrix Alloderm Thick Acellular Dermis 7x3cm Tissue Allograft Regenerative - [id number] Start: 02-03-2017 Tibial Nail-Adva nced 10mm X 375mm Sterile [id number] Start: 04-07-2024 Locking Screw Fo r Im Nail Xl25 5mm X 50mm Strl [id number] Start: 04-07-2024 Locking Screw Fo r Im Nail Xl25 5mm X 40mm Strl [id number] Start: 04-07-2024 Locking Screw Fo r Im Nail Xl25 5mm X 70mm Strl [id number] Start: 04-07-2024 Low Profile Lock ing Screw For Im Nail Xl25 5mm X 32mm Strl [id number] Start: 04-07-2024 Clinical Notes 04-07-2024 to 08-27-2024 Lucy Ponce PA-C - 08/27/2024 2:52 PM ESTTelephone Encounter - Juan Carlos David - 08/12/2024 1:18 PM ESTTelephone Encounter - Juan Carlos David - 08/12/2024 1:18 PM EST Note Date & Type Note Facility 08-27-2024 Note HNO ID: [id number] Author: LUCY PONCE PA-C Service: ? Author Type: Physician Sales Project Manager Type: Progress Notes Filed: 08/27/2024 15:43 Note Text: Ortho Follow Up Note Impression: Stable follow-up right proximal tibia fracture Andre Padron presents for a 4.5 month follow-up of his right proximal tibia fracture status post IM nailing. Overall doing well. Ambulating full weightbearing without aids. Has some localized tenderness proximally and distal. Some patellofemoral crepitance with motion. Patellofemoral crepitance with motion. Wounds are well-healed. No effusion. ROM:0 -120. No tenderness of the proximal tibia. Does have some local inflammatory warmth consistent with fracture healing. Plan: He will continue with usage and weightbearing as tolerated. Can slowly begin weight lifting light weights at higher repetitions. Discussion on diet and balanced nutrition. Follow-up April 2025 for his 1 year anniversary sooner with any concerns or complications. 2 views right tib-fib at that visit. Lucy Ponce PA-C [facility] 08-27-2024 History of Present illness Narrative Ortho Follow Up Note Impression: Stable follow-up right proximal tibia fracture Andre Padron presents for a 4.5 month follow-up of his right proximal tibia fracture status post IM nailing. Overall doing well. Ambulating full weightbearing without aids. Has some localized tenderness proximally and distal. Some patellofemoral crepitance with motion. Patellofemoral crepitance with motion. Wounds are well-healed. No effusion. ROM:0 -120. No tenderness of the proximal tibia. Does have some local inflammatory warmth consistent with fracture healing. Plan: He will continue with usage and weightbearing as tolerated. Can slowly begin weight lifting light weights at higher repetitions. Discussion on diet and balanced nutrition. Follow-up April 2025 for his 1 year anniversary sooner with any concerns or complications. 2 views right tib-fib at that visit. Lucy Ponce PA-C documented in this encounter [facility] 08-12-2024 Telephone encounter Note Summary: IS OUT OF THE OFFICE DR STOUT WILL BE OUT OF THE OFFICE. WAS ABLE TO RS FROM HIM TO LUCY PONCE SAME DAY DIFFERENT TIME [facility] 08-12-2024 Miscellaneous Notes Summary: IS OUT OF THE OFFICE DR STOUT WILL BE OUT OF THE OFFICE. WAS ABLE TO RS FROM HIM TO LUCY PONCE SAME DAY DIFFERENT TIME documented in this encounter [facility] 07-11-2024 Note HNO ID: [id number] Author: OUMAR WILLIAM MD Service: ? Author Type: Physician Type: Progress Notes Filed: 07/14/2024 11:12 Note Text: ORTHOPAEDIC OFFICE NOTE CHIEF COMPLAINT: right leg injury HISTORY OF PRESENT ILLNESS: Andre Padron is a 64 year old male who presents for reevaluation of intramedullary nail placement right tibia shaft fracture 04/07/[address] Zuleima Stout. Has been weight bearing as tolerated on the extremity. Pain and swelling generally improved. Does not note instability of the leg with activity. No new injury mechanism. 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 Reviewed all prior orthopaedic notes, Dr. Zuleima Stout, Lucy Ponce, reviewed operative note and prior images. Reviewed nursing note and current pain scale. PAST MEDICAL HISTORY Diagnosis Date - GERD (gastroesophageal reflux disease) - ADAIR (obstructive sleep apnea) states mild case and no CPAP use - Snoring PAST SURGICAL HISTORY Procedure Laterality Date - ANES OPEN/SURG ARTHROSCOPIC ELBOW PROC NOS Right - ANES OPEN/SURG ARTHROSCOPIC PROC KNEE JOINT NOS Left - APPENDECTOMY - COLONOSCOPY FLX DX W/COLLJ SPEC WHEN PFRMD 09/23/2013 Colonoscopy - ESOPHAGOGASTRODUODENOSCOPY TRANSORAL DIAGNOSTIC 09/23/2013 EGD - ESOPHAGOGASTRODUODENOSCOPY TRANSORAL DIAGNOSTIC 08/02/2019 EGD - PAST SURGICAL HISTORY OF Right 04/07/2024 IM Nail right tibia FAMILY HISTORY Problem Relation Age of Onset - Diabetes Father - other (Heart disease) Father - No Known Problems Mother - No Known Problems Sister - other (brain tumor) Brother Social History Tobacco Use - Smoking status: Some Days Types: Cigars - Smokeless tobacco: Never - Tobacco comments: occasionally Substance Use Topics - Alcohol use: Yes Comment: occassional - Drug use: No MEDICATIONS: Current Outpatient Medications Medication Sig - vilazodone (VIIBRYD) 40 mg tablet Take 40 mg by mouth once daily. With food - J-Fyxhlgu-X9 Mqic-Chzahk-O84 (FOLTANX) 3-35-2 mg tab or Capsule Take 1 tablet by mouth. - tamsulosin (FLOMAX) 0.4 mg Take 0.8 mg by mouth daily at bedtime. - pantoprazole DR (PROTONIX) 40 mg tablet Take 40 mg by mouth once daily. No current facility-administered medications for this visit. ALLERGIES: ALLERGIES Allergen Reactions - Vicodin [Hydrocodon* Unknown Made patient feel like he was having with drawls from pain medication. PHYSICAL EXAMINATION: Resp 20 Ht 6' 1 (1.85m) Wt 215 lb (97.5kg) BMI 28.37 kg/(m2). General Appearance: Well appearing, alert, in no acute distress, well-hydrated, well nourished. Skin: Skin color, texture, turgor normal, no suspicious rashes or lesions. Extremities: Right leg with healed surgical incisions. Mild edema. Right thigh and leg compartments soft and compressible. Demonstrates comfortable full right knee flexion and extension. Demonstrates comfortable right foot DF/PF 5/5/5 strength. Peripheral Pulses: Normal. Neurologic: Intact light touch sensation right lower extremity. IMAGES: Recent Results (from the past 36 hour(s)) XR TIBIA FIBULA 2V AP/LAT RIGHT Narrative AP and lateral views right tibia demonstrate no change in appearance of the visualized hardware about the proximal tibia compared to prior past images. Distal locking screws incompletely imaged. Tibial alignment appropriate with evidence of bone activity in both planes. Posterior fragment with bone resorption about the edges and unchanged in position. No new fracture identified. ASSESSMENT AND PLAN: 1. Other closed fracture of proximal end of right tibia with routine healing, subsequent encounter - ICD9: V54.16, ICD10: S82.191D Functional Plan: No restrictions with weight bearing or range of motion right lower extremity, symptom limited. Assistance Devices: None. Physical/Occupational Therapy: None currently. Wound Care: None. Pain Control: No change in pain regimen recommended this office visit. Additional: Administered work return letter per request for 07/15/2024 without restriction. Return in about 6 weeks (around 08/22/2024). Dr. Michel William MD Medical Decision Making: Problems: Low: Stable chronic illness Data: Unique source(s) for external note(s) reviewed: 3+ Unique test result(s) reviewed: 1 Unique test(s) ordered: 1 Risk: Low: Low risk from testing/treatment Medical Decision Making Level: 3 - Low [facility] 07-11-2024 History of Present illness Narrative Images from the original note were not included. ORTHOPAEDIC OFFICE NOTE CHIEF COMPLAINT: right leg injury HISTORY OF PRESENT ILLNESS: Andre Padron is a 64 year old male who presents for reevaluation of intramedullary nail placement right tibia shaft fracture 04/07/[address] Zuleima Stout. Has been weight bearing as tolerated on the extremity. Pain and swelling generally improved. Does not note instability of the leg with activity. No new injury mechanism. 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 Reviewed all prior orthopaedic notes, Dr. Zuleima Stout, Lucy Ponce, reviewed operative note and prior images. Reviewed nursing note and current pain scale. PAST MEDICAL HISTORY Diagnosis Date GERD (gastroesophageal reflux disease) ADAIR (obstructive sleep apnea) states mild case and no CPAP use Snoring PAST SURGICAL HISTORY Procedure Laterality Date ANES OPEN/SURG ARTHROSCOPIC ELBOW PROC NOS Right ANES OPEN/SURG ARTHROSCOPIC PROC KNEE JOINT NOS Left APPENDECTOMY COLONOSCOPY FLX DX W/COLLJ SPEC WHEN PFRMD 09/23/2013 Colonoscopy ESOPHAGOGASTRODUODENOSCOPY TRANSORAL DIAGNOSTIC 09/23/2013 EGD ESOPHAGOGASTRODUODENOSCOPY TRANSORAL DIAGNOSTIC 08/02/2019 EGD PAST SURGICAL HISTORY OF Right 04/07/2024 IM Nail right tibia FAMILY HISTORY Problem Relation Age of Onset Diabetes Father other (Heart disease) Father No Known Problems Mother No Known Problems Sister other (brain tumor) Brother Social History Tobacco Use Smoking status: Some Days Types: Cigars Smokeless tobacco: Never Tobacco comments: occasionally Substance Use Topics Alcohol use: Yes Comment: occassional Drug use: No MEDICATIONS: Current Outpatient Medications Medication Sig vilazodone (VIIBRYD) 40 mg tablet Take 40 mg by mouth once daily. With food W-Bgegurg-N7 Bhnq-Dcvxzb-M19 (FOLTANX) 3-35-2 mg tab or Capsule Take 1 tablet by mouth. tamsulosin (FLOMAX) 0.4 mg Take 0.8 mg by mouth daily at bedtime. pantoprazole DR (PROTONIX) 40 mg tablet Take 40 mg by mouth once daily. No current facility-administered medications for this visit. ALLERGIES: ALLERGIES Allergen Reactions Vicodin [Hydrocodon* Unknown Made patient feel like he was having with drawls from pain medication. PHYSICAL EXAMINATION: Resp 20 Ht 6' 1 (1.85m) Wt 215 lb (97.5kg) BMI 28.37 kg/(m^2). General Appearance: Well appearing, alert, in no acute distress, well-hydrated, well nourished. Skin: Skin color, texture, turgor normal, no suspicious rashes or lesions. Extremities: Right leg with healed surgical incisions. Mild edema. Right thigh and leg compartments soft and compressible. Demonstrates comfortable full right knee flexion and extension. Demonstrates comfortable right foot DF/PF 5/5/5 strength. Peripheral Pulses: Normal. Neurologic: Intact light touch sensation right lower extremity. IMAGES: Recent Results (from the past 36 hour(s)) XR TIBIA FIBULA 2V AP/LAT RIGHT Narrative AP and lateral views right tibia demonstrate no change in appearance of the visualized hardware about the proximal tibia compared to prior past images. Distal locking screws incompletely imaged. Tibial alignment appropriate with evidence of bone activity in both planes. Posterior fragment with bone resorption about the edges and unchanged in position. No new fracture identified. ASSESSMENT AND PLAN: 1. Other closed fracture of proximal end of right tibia with routine healing, subsequent encounter - ICD9: V54.16, ICD10: S82.191D Functional Plan: No restrictions with weight bearing or range of motion right lower extremity, symptom limited. Assistance Devices: None. Physical/Occupational Therapy: None currently. Wound Care: None. Pain Control: No change in pain regimen recommended this office visit. Additional: Administered work return letter per request for 07/15/2024 without restriction. Return in about 6 weeks (around 08/22/2024). Dr. Michel William MD Medical Decision Making: Problems: Low: Stable chronic illness Data: Unique source(s) for external note(s) reviewed: 3+ Unique test result(s) reviewed: 1 Unique test(s) ordered: 1 Risk: Low: Low risk from testing/treatment Medical Decision Making Level: 3 - Low documented in this encounter [facility] 06-14-2024 Note HNO ID: [id number] Author: HUSEYIN STOUT MD Service: ? Author Type: Physician Type: Progress Notes Filed: 06/14/2024 11:39 Note Text: I ordered, obtained interpreted today AP and lateral views of the right proximal tibia for follow-up of his proximal tibia fracture. Compared to previous radiographs shows his comminuted fracture of the proximal third of his tibia stabilized by IM nail. Fracture remains well aligned. Hardware intact. Interval healing noted. Impression: Stable follow-up right proximal tibia fracture Andre Padron presents for a 10-week follow-up of his right proximal tibia fracture status post IM nailing. Overall doing well. Progressing in physical therapy. Ambulating full weightbearing without aids. Has some localized tenderness proximally. Some patellofemoral crepitance with motion. Has completed his physical therapy and is going to transition to his home program. Still feels occasional sensation of weakness and giving way to his leg. Does not feel ready to return to work and I would agree. On examination he has some patellofemoral crepitance with motion. Wounds are well-healed. No effusion. 0 -115 degrees range of motion. No tenderness of the proximal tibia. Does have some local inflammatory warmth consistent with fracture healing. At this point he is continue to make slow but steady progress. Fracture still not healed completely clinically or radiographically but making progress. He will continue with his home exercise program. Discussed activity modifications and rest as needed. Will see him back in 4 weeks time for reevaluation potential return to work. METrudy [facility] 06-14-2024 History of Present illness Narrative I ordered, obtained interpreted today AP and lateral views of the right proximal tibia for follow-up of his proximal tibia fracture. Compared to previous radiographs shows his comminuted fracture of the proximal third of his tibia stabilized by IM nail. Fracture remains well aligned. Hardware intact. Interval healing noted. Impression: Stable follow-up right proximal tibia fracture Andre Padron presents for a 10-week follow-up of his right proximal tibia fracture status post IM nailing. Overall doing well. Progressing in physical therapy. Ambulating full weightbearing without aids. Has some localized tenderness proximally. Some patellofemoral crepitance with motion. Has completed his physical therapy and is going to transition to his home program. Still feels occasional sensation of weakness and giving way to his leg. Does not feel ready to return to work and I would agree. On examination he has some patellofemoral crepitance with motion. Wounds are well-healed. No effusion. 0 -115 degrees range of motion. No tenderness of the proximal tibia. Does have some local inflammatory warmth consistent with fracture healing. At this point he is continue to make slow but steady progress. Fracture still not healed completely clinically or radiographically but making progress. He will continue with his home exercise program. Discussed activity modifications and rest as needed. Will see him back in 4 weeks time for reevaluation potential return to work. CONRAD documented in this encounter [facility] 05-15-2024 Note HNO ID: [id number] Author: HUSEYIN STOUT MD Service: ? Author Type: Physician Type: Progress Notes Filed: 05/15/2024 11:06 Note Text: X-ray interpretation:I ordered, obtained and interpreted today AP and lateral views of the proximal tibia for follow-up of a right proximal tibia fracture. Compared to previous radiographs shows his comminuted proximal third tibia fracture in good position. Intramedullary nail intact. Impression: Stable follow-up right proximal tibial fracture Andre Padron Comes in for 5-week follow-up of his right proximal tibia fracture. Has been doing well with his home exercise program. Has been partial weightbearing with his crutches. Feeling more comfortable. Starting to get more weight on the leg as he has been testing it because it has been feeling good. Examination today his wounds are well-healed. He has 0 to 110 degrees range of motion. He has no calf pain or distal edema. At this point he can progress to weightbearing as tolerated. Can progress from his crutches to a cane as needed. Will start him on some outpatient physical therapy. 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 Sooner if there is any issues. [facility] 05-15-2024 History of Present illness Narrative X-ray interpretation:I ordered, obtained and interpreted today AP and lateral views of the proximal tibia for follow-up of a right proximal tibia fracture. Compared to previous radiographs shows his comminuted proximal third tibia fracture in good position. Intramedullary nail intact. Impression: Stable follow-up right proximal tibial fracture Andre Padron Comes in for 5-week follow-up of his right proximal tibia fracture. Has been doing well with his home exercise program. Has been partial weightbearing with his crutches. Feeling more comfortable. Starting to get more weight on the leg as he has been testing it because it has been feeling good. Examination today his wounds are well-healed. He has 0 to 110 degrees range of motion. He has no calf pain or distal edema. At this point he can progress to weightbearing as tolerated. Can progress from his crutches to a cane as needed. Will start him on some outpatient physical therapy. 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 Sooner if there is any issues. GAV documented in this encounter [facility] 04-23-2024 Telephone encounter Note I called and spoke with the patient again to let him know that once it is signed I will send via my chart. Flaquita Palumbo [facility] 04-23-2024 Miscellaneous Notes I called and spoke with the patient again to let him know that once it is signed I will send via my chart. Flaquita Palumbo ----- Message from Melanie Braden sent at 04/23/2024 1:11 PM EDT ----- Regarding: Orthopedic/ [RAMAN Ponce]/ [Paperwork] Subject Line Format: Orthopedics / [Provider Name or Open & Body Part] / [Issue] Patient has been identified by name and Date of (Y/N): Y Patient: Andre Padron Date of : 1960 Previous Provider Seen: Sergei Body Part(s) Identified: DAMIÁN Diagnosis/Reason For Visit: NA Reason for the call/escalation: Patient called in to talk to office for FMLA paperwork and a doctor's excuse paper to submit. Patient would like call back at earliest convenience If reason for call/escalation is discharge from ED/ER or Hospital, which facility was the patient seen at: NA Was an appointment scheduled (Y/N): N Person calling if other than patient: Patient Return call to if other than patient: Patient Best contact number: [phone] Thank you, Melanie Braden April 23, 2024 1:11 PM documented in this encounter [facility] 04-23-2024 Telephone encounter Note ----- Message from Melanie Braden sent at 04/23/2024 1:11 PM EDT ----- Regarding: Orthopedic/ [PA Ponce]/ [Paperwork] Subject Line Format: Orthopedics / [Provider Name or Open & Body Part] / [Issue] Patient has been identified by name and Date of (Y/N): Y Patient: Andre Padron Date of : 1960 Previous Provider Seen: Sergei Body Part(s) Identified: DAMIÁN Diagnosis/Reason For Visit: NA Reason for the call/escalation: Patient called in to talk to office for FMLA paperwork and a doctor's excuse paper to submit. Patient would like call back at earliest convenience If reason for call/escalation is discharge from ED/ER or Hospital, which facility was the patient seen at: NA Was an appointment scheduled (Y/N): N Person calling if other than patient: Patient Return call to if other than patient: Patient Best contact number: [phone] Thank you, Melanie Braden April 23, 2024 1:11 PM [facility] 04-22-2024 Telephone encounter Note I called and talked with the patient and let him know we rec'd the form, when it was done I would fax it. He asked if I could send via my chart and I let him know if he activates it this evening, it should be available tomorrow. Flaquita Palumbo [facility] 04-22-2024 Telephone encounter Note ----- Message from Melanie Braden sent at 04/22/2024 4:09 PM EDT ----- Regarding: Orthopedics/ [Ponce]/ [FMLA Paperwork] Subject Line Format: Orthopedics / [Provider Name or Open & Body Part] / [Issue] Patient has been identified by name and Date of (Y/N): Y Patient: Andre Padron Date of : 1960 Previous Provider Seen: RAMAN Ponce Body Part(s) Identified: NA Diagnosis/Reason For Visit: NA Reason for the call/escalation: Patient called in for a status update on his FMLA paperwork. Contacted the office but department secretary was out. Patient would like call back at earliest convenience If reason for call/escalation is discharge from ED/ER or Hospital, which facility was the patient seen at: NA Was an appointment scheduled (Y/N): N Person calling if other than patient: Patient Return call to if other than patient: Patient Best contact number: [phone] Thank you, Melanie Braden April 22, 2024 4:09 PM [facility] 04-22-2024 Miscellaneous Notes I called and talked with the patient and let him know we rec'd the form, when it was done I would fax it. He asked if I could send via my chart and I let him know if he activates it this evening, it should be available tomorrow. Flaquita Palumbo ----- Message from Melanie Braden sent at 04/22/2024 4:09 PM EDT ----- Regarding: Orthopedics/ [Ponce]/ [FMLA Paperwork] Subject Line Format: Orthopedics / [Provider Name or Open & Body Part] / [Issue] Patient has been identified by name and Date of (Y/N): Y Patient: Andre Padron Date of : 1960 Previous Provider Seen: RAMAN Ponce Body Part(s) Identified: NA Diagnosis/Reason For Visit: NA Reason for the call/escalation: Patient called in for a status update on his FMLA paperwork. Contacted the office but department secretary was out. Patient would like call back at earliest convenience If reason for call/escalation is discharge from ED/ER or Hospital, which facility was the patient seen at: NA Was an appointment scheduled (Y/N): N Person calling if other than patient: Patient Return call to if other than patient: Patient Best contact number: [phone] Thank you, Melanie Braden April 22, 2024 4:09 PM documented in this encounter [facility] 04-18-2024 Note HNO ID: [id number] Author: LUCY PONCE PA-C Service: ? Author Type: Physician Sales Project Manager Type: Progress Notes Filed: 04/18/2024 11:50 Note Text: Orthopedic Post Operative Note DOS:04/07/24 Procedure:IM Nailing right Tibia Surgeon:TIFF Subjective: Patient is a 64 years old seen in follow up day 11. With postoperative recovery. Off of all narcotics. Touchdown weightbearing using crutches. Denies any calf pain or shortness of breath. There is been no drainage from the incision or the wounds. Exam: Alert oriented 64-year-old male NAD Lower extremity inspection shows surgical incisions are secured with vonda and skin glue. No signs of drainage or breakdown Knee is in neutral alignment. Vascularly intact right lower extremity with a positive FHL/EHL of the right great toe. Capillary refill less than 2 seconds distal nailbeds right lower extremity. Sensations intact throughout all dermatomes of the right leg. Diagnostic Imagin views of the right tibia showing intramedullary nohemi spanning the length of the tibia and locked with distal and proximal screws. IM nail is intramedullary encompassing the proximal third of the tibial shaft with a multifragmented fracture mostly reduced to near anatomic position. Assessment:S/P medullary nailing right tibia fracture 04/07/2024 doing well and making good post operative recovery. Plan: Functional Plan: Continue with 50% partial weightbearing using crutches Assistance Devices: None Physical/Occupational Therapy: Exercise program discussed and demonstrated today to include strict elevation, isometric quad contractions. Of motion of the knee is improved. Wound Care: Daily wet soapy rinse and dry. No Jacuzzis or bathtubs. He is not to use any antibiotic ointments on the incisions. Pain Control: Ice, heat, extra strength Tylenol, limited NSAIDs Additional: Andre will be seen back in 3 weeks time for repeat 2 views of the right tib-fib. Follow-up sooner with any worsening or concerning symptoms. Lucy Ponce PA-C [facility] 04-18-2024 History of Present illness Narrative Orthopedic Post Operative Note DOS:04/07/24 Procedure:IM Nailing right Tibia Surgeon:TIFF Subjective: Patient is a 64 years old seen in follow up day 11. With postoperative recovery. Off of all narcotics. Touchdown weightbearing using crutches. Denies any calf pain or shortness of breath. There is been no drainage from the incision or the wounds. Exam: Alert oriented 64-year-old male NAD Lower extremity inspection shows surgical incisions are secured with vonda and skin glue. No signs of drainage or breakdown Knee is in neutral alignment. Vascularly intact right lower extremity with a positive FHL/EHL of the right great toe. Capillary refill less than 2 seconds distal nailbeds right lower extremity. Sensations intact throughout all dermatomes of the right leg. Diagnostic Imagin views of the right tibia showing intramedullary nohemi spanning the length of the tibia and locked with distal and proximal screws. IM nail is intramedullary encompassing the proximal third of the tibial shaft with a multifragmented fracture mostly reduced to near anatomic position. Assessment:S/P medullary nailing right tibia fracture 04/07/2024 doing well and making good post operative recovery. Plan: Functional Plan: Continue with 50% partial weightbearing using crutches Assistance Devices: None Physical/Occupational Therapy: Exercise program discussed and demonstrated today to include strict elevation, isometric quad contractions. Of motion of the knee is improved. Wound Care: Daily wet soapy rinse and dry. No Jacuzzis or bathtubs. He is not to use any antibiotic ointments on the incisions. Pain Control: Ice, heat, extra strength Tylenol, limited NSAIDs Additional: Andre will be seen back in 3 weeks time for repeat 2 views of the right tib-fib. Follow-up sooner with any worsening or concerning symptoms. Lucy Ponce PA-C documented in this encounter [facility] 04-12-2024 Telephone encounter Note late entry I spoke with the patient and scheduled an appointment. Flaquita Palumbo [facility] 04-12-2024 Miscellaneous Notes late entry I spoke with the patient and scheduled an appointment. Flaquita Palumbo Patient may see his ortho surgeon he is established with. If that surgeon will not see him, he will need an appt on 04-18-24 @ [place] with Lucy. I called the patient and left a voicemail with my name, number and ext to call back to schedule, if needed. Flaquita Palumbo documented in this encounter [facility] 04-09-2024 Telephone encounter Note Patient may see his ortho surgeon he is established with. If that surgeon will not see him, he will need an appt on 04-18-24 [place] with Lucy. I called the patient and left a voicemail with my name, number and ext to call back to schedule, if needed. Flaquita Palumbo [facility] 04-08-2024 Note HNO ID: [id number] Author: PAVAN PARK DO Service: Orthopaedic Surgery Author Type: Resident Type: Progress Notes Filed: 04/08/2024 06:11 Note Text: Orthopaedic Surgery Inpatient Progress Note Assessment Andre Padron is a 64 year old male who is POD #1 status-post right tibial IM nail. Plan -Management per Ortho -Pain control -Weight Bearing As Tolerated right lower extremity -Dressing management -soft dressings over right lower extremity. -Regular diet -PT/OT: Appreciate recommendations -DVT ppx: SCDs, ambulation, aspirin 81 mg BID starting POD 11 for 21 days. -Post op Abx Ancef 2 g every 8 hours x 2 doses. -Post op xray: X-ray of right tibia in PACU. -D/C planning: Pending pain control and PT -Follow up: With Dr. Stout in 10-14 days Subjective No acute events overnight. Pain well controlled. No fevers, chills, chest pain, or shortness of breath. No new complaints. Physical Examination Vitals BP 93/51 Pulse (!) 55 Temp 36.7 ?C (98.1 ?F) (Oral) Resp 16 Ht 185.4 cm (6' 1) Wt 97.9 kg (215 lb 13.3 oz) SpO2 94% BMI 28.48 kg/m? General Alert and oriented. No acute distress. Cooperative with interview. Right lower Extremity Alignment normal. No gross deformities. No swelling, ecchymosis, or erythema. Soft dressing covering lower exremity No open wounds or lacerations. SILT Grace/Sa/DP/SP/T. Motor intact EHL/DF/PF. DP/PT pulses palpable; BCR all digits. Labs Recent Labs 04/08/24 0333 04/07/24 1752 04/07/24 0551 NA 139 -- 140 K 4.1 -- 3.7 CHLOR 103 -- 103 CO2 27 -- 30 BUN 14 -- 13 CREAT 0.73 -- 0.77 GLUC 193* -- 101* ANION 9 -- 7* CA 8.5 -- 8.7 WBC 9.14 9.38 -- HB 10.6* 11.9* -- HCT 30.6* 34.8* -- PLT 206 224 -- Imaging Postoperative x-rays of right tibia and fibula demonstrate stable right intramedullary nail within the tibia. [place] DO - PGY-1 Orthopaedic Surgery 04/08/2024 5:04 AM Pager [phone] [facility] 04-07-2024 Note HNO ID: [id number] Author: STEPHANIE ALMANZAR MD Service: Orthopaedic Surgery Author Type: Resident Type: Plan of Care Filed: 04/07/2024 19:54 Note Text: Orthopedic plan of care: 64-year-old female status post IM nail of right tibia. Post op plan: -Management per Ortho -Pain control -Weight Bearing As Tolerated right lower extremity -Dressing management -soft dressings over right lower extremity. -Regular diet -PT/OT: Appreciate recommendations -DVT ppx: SCDs, ambulation, aspirin 81 mg BID starting POD 11 for 21 days. -Post op Abx Ancef 2 g every 8 hours x 2 doses. -Post op xray: X-ray of right tibia in PACU. -D/C planning: Pending pain control and PT -Follow up: With Dr. Stout in 10-14 days Stephanie Almanzar MD PGY-2 April 07, 2024 7:51 PM Pager: [phone] [facility] 04-07-2024 Note HNO ID: [id number] Author: ANDREA KAUR APRN.LONG DISTANCE OPERATOR Service: Anesthesiology Author Type: Nurse Wood Technologist Type: Anesthesia Procedure Notes Filed: 04/07/2024 11:31 Note Text: ANESTHESIOLOGY PROCEDURE NOTE Airway General Information Procedure Start Time/Medication Administration: 04/07/2024 11:19 AM Procedure End Time: 04/07/2024 11:20 AM Patient location during procedure: OR Timeout Performed Pre-procedure: timeout performed Consent Obtained: Yes Patient identity confirmed: arm band Staffing LONG DISTANCE OPERATOR: Davi Abdalla APRN.LONG DISTANCE OPERATOR Performed by: CITLALLI Indications and Patient Condition Indications for airway management: anesthesia Preoxygenated: yes anesthesia circuit Method: asleep Cricoid Pressure: No Difficult Mask: No Final Airway Details Final airway type: endotracheal airway Final Endotracheal Airway: ETT Cuffed: yes Successful intubation technique: direct laryngoscopy Devices used: intubating stylet Endotracheal tube insertion site: oral Blade: Maurice Blade size: #4 ETT size (mm): 7.5 Measured from: lips Measurement (cm): 21 Placement verified by: chest auscultation and capnometry Cormack-Lehane Classification: grade I - full view of glottis Number of attempts at approach: 1 Airway not difficult SIGNATURE: Andrea Kaur APRN.LONG DISTANCE OPERATOR PATIENT NAME: Andre Padron DATE: April 07, 2024 TIME: 11:30 AM CSN: [id number] [facility] 04-07-2024 Note HNO ID: [id number] Author: VU MCCARTY MD Service: Orthopaedic Surgery Author Type: Resident Type: Progress Notes Filed: 04/07/2024 06:23 Note Text: Orthopaedic Surgery Inpatient Progress Note Assessment Andre Padron is a 64 year old male with a closed comminuted proximal R tibia fracture. Plan - Admit to Orthopaedic Surgery. - Pain control. - Weight-bearing Status: NWB RLE. - DVT PPx: SCDs. Hold chemo ppx until after OR 04/07. - R knee immobilizer - Imaging: NNOI - Medicine consult, appreciate recommendations . - Labs: pre-op labs ordered - Diet: NPO - OR today Subjective No acute events overnight. Pain okay controlled. No new numbness or tingling. No fevers, chills, chest pain, or shortness of breath. No new complaints. Physical Examination Vitals BP 101/63 Pulse 63 Temp 36.6 ?C (97.9 ?F) (Oral) Resp 16 Ht 185.4 cm (6' 1) Wt 98.1 kg (216 lb 4.3 oz) SpO2 95% BMI 28.53 kg/m? General Alert and oriented. No acute distress. Cooperative with interview. Right Lower Extremity Alignment normal. No gross deformities. Knee immobilizer in place Compartments of the thigh and leg are soft and compressible Tolerates passive stretch of the digits SILT Grace/Sa/DP/SP/T. Motor intact EHL/DF/PF. DP pulse palpable; BCR all digits. Labs Recent Labs 04/06/24 1826 WBC 9.51 HB 13.0 HCT 37.4* PLT [address] Knee: demonstrating the previously stated fracture without extension into the knee joint Vu Mccarty MD Orthopaedic Surgery 04/07/2024 6:07 AM [facility] Evaluation note No assessment information [facility] Work Phone: Evaluation note Diagnosis Surgery follow-up examination- Primary Follow-up examination, following unspecified surgery [facility] Closed fracture of proximal end of right tibia, unspecified fracture morphology, initial encounter- Primary [facility] Diagnosis Other closed fracture of proximal end of right tibia with routine healing, subsequent encounter- [facility] Other closed fracture of proximal end of right tibia with routine healing, subsequent encounter- Primary [facility] Closed fracture of proximal end of right tibia, unspecified fracture morphology, initial encounter- Primary Surgery follow-up examination Follow-up examination, following unspecified surgery documented in this encounter [facility] for referral (narrative)* Diagnostic Procedure Only (Routine) - New Request Specialty Diagnoses / Procedures Referred By Contac t Referred To Contact XR IMAGING Diagnoses Surgery follow-up examination Procedures XR TIBIA FIBULA 2V AP/LAT RIGHT RADIOLOGIC EXAMINATION TIBIA & FIBULA 2 VIEWS Lucy Ponce PA-C [address] [place] [address] [place] [address] Referral ID Status Reason Start Date Expiration Date Visits Requested Visits Authorized [id number] New Request Auto-Generat ed Referral 04/18/2024 05/18/2025 1 1 T [facility] for referral (narrative)* Diagnostic Procedure Only (Routine) - New Request Specialty Diagnoses / Procedures Referred By Contac t Referred To Contact XR IMAGING Diagnoses Other closed fracture of proximal end of right tibia with routine healing, subsequent encounter Procedures XR KNEE LIMITED 2V AP/LAT RIGHT RADIOLOGIC EXAMINATION KNEE 1/2 VIEWS Huseyin Stout MD [address] [place] [address] [place] [id number] [place] [address] Referral ID Status Reason Start Date Expiration Date Visits Requested Visits Authorized [id number] New Request Auto-Generat ed Referral 06/14/2024 07/14/2025 1 1 T [facility] for referral (narrative)* Diagnostic Procedure Only (Routine) - New Request Specialty Diagnoses / Procedures Referred By Contac t Referred To Contact XR IMAGING Diagnoses Other closed fracture of proximal end of right tibia with routine healing, subsequent encounter Procedures XR TIBIA FIBULA 2V AP/LAT RIGHT RADIOLOGIC EXAMINATION TIBIA & FIBULA 2 VIEWS Oumar William MD [address] [place] [address] [place] [address] Referral ID Status Reason Start Date Expiration Date Visits Requested Visits Authorized [id number] New Request Auto-Generat ed Referral 08/10/2025 1 1 [facility] Summary Purpose Family History No Family History Records Found Relationship Condition Age at Onset Recorded Date/T rufino father Diabetes mellitus Unknown Cardiac disease Unknown Hypertension Unknown Coronary artery disease Unknown Advance Directives No Advanced Directives Records Found Advance Directive Response Recorded Date/ Time Advance Directives Yes August 1:46am Living Will Yes August 25, 2 017 4:31am Power of Ward Assistant No August 25, 2017 4:31am Chief Complaint and Reason for Visit Chief Complaint LAB TESTS Reason for Referral Specialty Diagnoses / Procedures Referred By Contac t Referred To Contact [facility] Diagnoses Closed fracture of proximal end of right tibia, unspecified fracture morphology, initial encounter Procedures CONSULT TO PHYSICAL THERAPY PHYSICAL THERAPY EVALUATION HIGH COMPLEX 45 MINS Huseyin Stout MD [address] [place] [address] [place] [id number] [facility] [address] [place], [place] [id number] Referral ID Status Reason Start Date Expiration Date Visits Requested Visits Authorized [id number] Pending Review Auto-Generat ed Referral 05/15/2024 05/15/2025 1 1 Specialty Diagnoses / Procedures Referred By Sri centeno Referred To Contact XR IMAGING Diagnoses Closed fracture of proximal end of right tibia, unspecified fracture morphology, initial encounter Procedures XR KNEE LIMITED 2V AP/LAT RIGHT RADIOLOGIC EXAMINATION KNEE 1/2 VIEWS Huseyin Stout MD [address] [place] [address] [place] [id number] Xr Imaging [id number] Referral ID Status Reason Start Date Expiration Date Visits Requested Visits Authorized [id number] New Request Auto-Generat ed Referral 05/15/2024 06/14/2025 1 1 Additional Source Comments (unrecognized sect ion and content) No Status Records FoundNo Status Records FoundNo Status Records FoundNo Status Records Found INFORMATION SOURCE (unrecogn ized section and content) DATE CREATED AUTHOR 02/27/2018 [facility] ([place]) DATE CREATED AUTHOR AUTHOR'S ORGANIZ ATION 09/07/2019 [facility] DATE CREATED AUTHOR AUTHOR'S ORGANIZ ATION 08/30/2024 [facility] DATE CREATED AUTHOR AUTHOR'S ORGANIZ ATION 04/22/2025 [facility] Goals (unrecognized section and content) Goals may be documented in a n alternate sectionGoals may be documented in an alternate section Care Teams (unrecognized sec tion and content) Team Status: Active Member Role Status Dates Dr. Lana Prieto MD Family Provider Active Dr. Andre Yeh , Primary Care Provider Active Team Status: Inactive Member Role Status Dates Dr. Andre Yeh DO Primary Care Prov ider, Attending Provider, Referring Provider Active Occupational Health Nurse Supervisor Relationship Specialty Start Date End Date Lana Prieto MD PCP - General Family Medicine 05/10/13 Occupational Health Nurse Supervisor Relationship Specialty Start Date End Date Lana Prieto MD PCP - General Family Medicine 05/10/13 Occupational Health Nurse Supervisor Relationship Specialty Start Date End Date Lana Prieto MD PCP - General Family Medicine 05/10/13 Occupational Health Nurse Supervisor Relationship Specialty Start Date End Date Lana Prieto MD PCP - General Family Medicine 05/10/13 Occupational Health Nurse Supervisor Relationship Specialty Start Date End Date Lana Prieto MD PCP - General Family Medicine 05/10/13 Occupational Health Nurse Supervisor Relationship Specialty Start Date End Date Andre Yeh DO [address] [place] [address] PCP - General Family Medicine 06/14/24 Occupational Health Nurse Supervisor Relationship Specialty Start Date End Date Andre Yeh DO [address] [place] [address] PCP - General Family Medicine 06/14/24 Occupational Health Nurse Supervisor Relationship Specialty Start Date End Date Andre Yeh DO [address] [place] [address] PCP - General Family Medicine 06/14/24 Occupational Health Nurse Supervisor Relationship Specialty Start Date End Date Andre Yeh DO [address] [place] [address] PCP - General Family Medicine 06/14/24 Source Comments (unrecognize d section and content) In the event this informatio n is protected by the Federal Confidentiality of Alcohol and Drug Abuse Patient Records regulations: The Federal rules restrict any use of the information to criminally investigate or prosecute any alcohol or drug abuse patient.[facility] the event this information is protected by the Federal Confidentiality of Alcohol and Drug Abuse Patient Records regulations: The Federal rules restrict any use of the information to criminally investigate or prosecute any alcohol or drug abuse patient.[facility] the event this information is protected by the Federal Confidentiality of Alcohol and Drug Abuse Patient Records regulations: The Federal rules restrict any use of the information to criminally investigate or prosecute any alcohol or drug abuse patient.[facility] the event this information is protected by the Federal Confidentiality of Alcohol and Drug Abuse Patient Records regulations: The Federal rules restrict any use of the information to criminally investigate or prosecute any alcohol or drug abuse patient.[facility] the event this information is protected by the Federal Confidentiality of Alcohol and Drug Abuse Patient Records regulations: The Federal rules restrict any use of the information to criminally investigate or prosecute any alcohol or drug abuse patient.[facility] the event this information is protected by the Federal Confidentiality of Alcohol and Drug Abuse Patient Records regulations: The Federal rules restrict any use of the information to criminally investigate or prosecute any alcohol or drug abuse patient.[facility] the event this information is protected by the Federal Confidentiality of Alcohol and Drug Abuse Patient Records regulations: The Federal rules restrict any use of the information to criminally investigate or prosecute any alcohol or drug abuse patient.[facility] the event this information is protected by the Federal Confidentiality of Alcohol and Drug Abuse Patient Records regulations: The Federal rules restrict any use of the information to criminally investigate or prosecute any alcohol or drug abuse patient.[facility] the event this information is protected by the Federal Confidentiality of Alcohol and Drug Abuse Patient Records regulations: The Federal rules restrict any use of the information to criminally investigate or prosecute any alcohol or drug abuse patient.[facility] Reason for Visit (unrecogniz ed section and content) Reason Comments Appointment Reason Comments Post Op Reason Comments Patient Question Reason Comments Established Patient Follow Up Post Op Reason Comments Established Patient Follow Up Pain Swelling Reason Comments Appointment DR STOUT WILL BE OU T OF THE OFFICE. WAS ABLE TO RS FROM HIM TO LUCY PONCE SAME DAY DIFFERENT TIME Reason Comments Established Patient Denies pain or swell ing, no recent falls or new injuries. Follow Up Denies pain or swell ing, no recent falls or new injuries. FOR RECORDS PERTAINING TO PATIENTS WHO ARE OR HAVE BEEN ENROLLED IN A CHEMICAL DEPENDENCY/SUBSTANCEABUSE PROGRAM, SOME INFORMATION MAY BE OMITTED. This clinical summary was aggregated from multiple sources. Caution should be exercised in using it in the provision of clinical care. This summary normalizes information from multiple sources, and as a consequence, information in this document may materially change the coding, format and clinical context of patient data. In addition, data may be omitted in some cases. CLINICAL DECISIONS SHOULD BE BASED ON THE PRIMARY CLINICAL RECORDS. [facility] [employer] [facility]. provides no warranty or guarantee of the accuracy or completeness of information in this document.
[2025-04-23 06:40] LABS: Hematocrit 40.5 % (40-54); Hemoglobin 14.5 g/dL (13.0-16.5); Immature Granulocytes Count 0.010 X10^3/uL (0.0-0.0); Mean Corp Hgb Conc 35.8 g/dL (32-36); Mean Corpuscular Volume 86.5 fL (80-94); Mean Platelet Vol. 8.3 fl (6.2-12.0); NRBC Flagged by Analyzer 0 % (0-5); Platelet Count 271 K/mm3 (150-450); RBC Distribution Width CV 12.5 % (11.6-14.6); RBC Distribution Width SD 39.3 fl (35.1-43.9); Red Blood Count 4.68 M/mm3 (4.6-6.2); White Blood Count 4.4 K/mm3 (4.4-11.0)
[2025-04-23 07:12] LABS: AST(SGOT) 26 U/L (<=37); Alanine Aminotransfer ALT/SGPT 27 U/L (<=46); Albumin, Serum 4.4 g/dL (3.4-4.8); Alkaline Phosphatase 71 U/L (40-129); Anion Gap 11 (5-15); BUN 16 mg/dL (4-19); BUN/Creat Ratio 20.4 RATIO (10-20); Calcium,Total 9.5 mg/dL (7.6-11.0); Carbon Dioxide 25.6 mmol/L (21.0-32.0); Chloride 105 mmol/L (98-108); Globulin 2.6 g/dL (2.2-4.2); Glucose 103 mg/dL (70-99); PSA,Total - Annual Screen 1.59 ng/mL (0.02-4.00); Potassium 4.1 mmol/L (3.3-5.1)
[2025-04-23 07:45] LABS: Cholesterol 187 mg/dL (<=200); Low Density Lipoprotein Calc. 119 mg/dL; Triglycerides 79 mg/dL; Very Low Density Lipoprotein 16 mg/dL (5-40); cholesterol:hdl ratio screen 3.57
== END | disposition home or self-care (01) ==
LOC: LAB 05:49
PROVIDERS: PCP Family Medicine; Referring Provider Family Medicine; Visit Provider Family Medicine
DX: Z00.00 Encounter for general adult medical examination without abnormal findings (principal); Z12.5 Encounter for screening for malignant neoplasm of prostate; R73.01 Impaired fasting glucose
CPT/HCPCS: 36415; 80053; 80061; 83036; 84153; 85025; G0103

== ENCOUNTER → 2025-04-25 | Outpatient (CLI) | payer BC, SELFPAY ==
[2025-04-25 18:15] LABS: Vitamin B12 1220 pg/mL (180-914)
[2025-04-28 14:08] LABS: ANTINUCLEAR ANTIBODIES DIRECT Negative (Negative)
== END | disposition home or self-care (01) ==
LOC: BFHLAB 16:31
PROVIDERS: PCP Family Medicine; Referring Provider Family Medicine; Visit Provider Family Medicine
DX: H05.829 Myopathy of extraocular muscles, unspecified orbit (principal); R53.83 Other fatigue; K11.7 Disturbances of salivary secretion
CPT/HCPCS: 36415; 82607; 84238; 84443; 86038; 86225